=== PATIENT | female | born 1940 | race Caucasian/White ===

== ENCOUNTER 2016-11-10 20:27 | Inpatient (IN) | payer MEDICARE, BC ==
[2016-11-10] MEDS ORDERED: SODIUM CHLORIDE 0.9% 1,000 ML IV STA ×2 (21:56→23:50)
[2016-11-10 22:23] LABS: Amorphous Sediment,Urine Rare /hpf; Appearance,Urine Cloudy (Clear); Bilirubin,Urine Negative (Negative); Glucose,Urine (UA) Negative (Negative); Ketones,Urine Negative (Negative); Leukocyte Esterase,Urine Trace (Negative); Mucus,Urine Rare /hpf; Nitrite,Urine Negative (Negative); Particle Count 7152; Protein,Urine 2+ (Negative); RBC,Urine 1 /hpf (0-5); Specific Gravity,Urine 1.007 (1.001-1.035); Squamous Epithelial Cell,Urine 1 /hpf (0-4); UA Billing (MACRO vs. MICRO) MICRO; Urobilinogen,Urine <2.0 mg/dL (<2.0); WBC,Urine 5 /hpf (0-5)
[2016-11-10 22:33] LABS: Basophils % (A) 0 %; CH 31.9; CHCM 35.2; Eosinophils # (A) 0.1 k/uL (0-0.7); Eosinophils % (A) 1 %; HCT 29.5 % (34.0-46.0); HDW 3.45; HGB 9.9 gm/dL (11.4-16.0); Luc # (Auto) 0.09; Luc % (Auto) 1; Lymphocytes # (A) 0.8 k/uL (1.0-4.8); Lymphocytes % (A) 10 %; MCH 30.5 pg (25.0-35.0); MCHC 33.4 g/dL (31.0-37.0); MCV 91.3 fL (80.0-100.0); Mean Platelet Volume 8.2; Monocytes # (A) 0.3 k/uL (0-1.0); Monocytes % (A) 4 %; Neutrophils # (A) 7.2 k/uL (1.3-7.7); Neutrophils % (A) 84 %; Poikilocytosis Slight; RBC 3.23 m/uL (3.80-5.40); RDW 15.1 % (11.5-15.5); WBC 8.5 k/uL (3.8-10.6); WBC (Perox) 8.39
[2016-11-10 22:45] LABS: Calcium 9.6 mg/dL (8.4-10.2); Magnesium 1.5 mg/dL (1.6-2.3); Phosphorous 2.3 mg/dL (2.5-4.5); Total Bilirubin 0.5 mg/dL (0.2-1.3); Total Protein 5.9 g/dL (6.3-8.2)
[2016-11-10 22:48] LABS: INR 1.1 (<1.2)
[2016-11-10 22:49] LABS: Partial Thromboplastin Time 30.4 sec (22.0-30.0); Prothrombin Time 11.3 sec (9.0-12.0)
--- NOTE | 2016-11-10 23:08 | XR ---
EXAM: XR Chest, 2 Views CLINICAL HISTORY: Reason: Weakness TECHNIQUE: Frontal and lateral views of the chest. COMPARISON: 03/04/14 FINDINGS: No lobar consolidation or pulmonary edema. Low lung volumes noted which accentuate the cardiac silhouette and pulmonary markings. Tortuous aorta with atherosclerotic calcifications. Prominence of the right paratracheal stripe likely due to right oblique positioning. Osseous structures intact. IMPRESSION: No lobar consolidation or pulmonary edema. Thickening of the right paratracheal stripe likely due to oblique positioning.
[2016-11-10 23:09] LABS: Creatine Kinase MB 1.3 ng/mL (0.0-2.4); Troponin I 0.016 ng/mL (0.000-0.034)
[2016-11-10] MEDS ORDERED: SODIUM CHLORIDE 0.9% 500 ML IV STA (23:50)
--- NOTE | 2016-11-10 23:50 | ED ---
General Adult HPI - General Chief complaint: Recheck/Abnormal Lab/Rx Stated complaint: Weakness Time Seen by Provider: 11/10/16 21:28 Source: EMS, RN notes reviewed, old records reviewed Mode of arrival: EMS Limitations: no limitations - History of Present Illness Initial comments: This is a 76-year-old female to the ER for evaluation today. This patient presents for evaluation regarding weakness. Decreased appetite, decreased activity level. Patient was just discharged from hospital secondary to having stroke. Family states she's been gradually decompensating since she's been home. Patient herself admits to being emotional not feeling well and is being mildly overwhelmed. She is awake and alert. She states that she just feels weak - Related Data Home Medications Medication Instructions Recorded Confirmed Allopurinol [Zyloprim] 150 mg PO DAILY 11/10/16 11/10/16 Carvedilol [Coreg] 3.125 mg PO BID 11/10/16 11/10/16 Furosemide [Lasix] 20 mg PO DAILY 11/10/16 11/10/16 HYDROcodone/APAP 7.5-325MG [[place] 1 tab PO Q8H PRN 11/10/16 11/10/16 7.5-325] LORazepam [Ativan] 1 mg PO Q8H PRN 11/10/16 11/10/16 Levothyroxine Sodium 125 mcg PO DAILY 11/10/16 11/10/16 NIFEdipine [NIFEdipine ER] 90 mg PO DAILY 11/10/16 11/10/16 Sertraline [Zoloft] 25 mg PO DAILY 11/10/16 11/10/16 Spironolactone [Aldactone] 12.5 mg PO DAILY 11/10/16 11/10/16 cloNIDine 0.2 MG/24HR PATCH 1 patch TRANSDERM MO 11/10/16 11/10/16 [Catapres-TTS] levETIRAcetam [Keppra] 500 mg PO Q12H 11/10/16 11/10/16 Allergies Allergy/AdvReac Type Severity Reaction Status Date / Time codeine Allergy Unknown Verified 11/10/16 21:04 iodine Allergy Unknown Verified 11/10/16 21:04 latex Allergy Unknown Verified 11/10/16 21:04 Review of Systems ROS Statement: Those systems with pertinent positive or pertinent negative responses have been documented in the HPI. ROS Other: All systems not noted in ROS Statement are negative. Past Medical History Past Medical History: Heart Failure, CVA/TIA, Hypertension, Renal Disease History of Any Multi-Drug Resistant Organisms: None Reported Past Surgical History: Appendectomy, Cholecystectomy, Hysterectomy Past Psychological History: Anxiety, Bipolar, Depression Smoking Status: Former smoker Past Alcohol Use History: None Reported Past Drug Use History: None Reported General Exam Limitations: no limitations General appearance: alert, in no apparent distress Head exam: Present: atraumatic, normocephalic, normal inspection Eye exam: Present: normal appearance, PERRL, EOMI. Absent: scleral icterus, conjunctival injection, periorbital swelling ENT exam: Present: normal exam, mucous membranes moist Neck exam: Present: normal inspection. Absent: tenderness, meningismus, lymphadenopathy Respiratory exam: Present: normal lung sounds bilaterally. Absent: respiratory distress, wheezes, rales, rhonchi, stridor Cardiovascular Exam: Present: regular rate, normal rhythm, normal heart sounds. Absent: systolic murmur, diastolic murmur, rubs, gallop, clicks GI/Abdominal exam: Present: soft, normal bowel sounds. Absent: distended, tenderness, guarding, rebound, rigid Extremities exam: Present: normal inspection, full ROM, normal capillary refill. Absent: tenderness, pedal edema, joint swelling, calf tenderness Back exam: Present: normal inspection Neurological exam: Present: alert, oriented X3, CN II-XII intact Psychiatric exam: Present: normal affect, normal mood Skin exam: Present: warm, dry, intact, normal color. Absent: rash Course Vital Signs 11/10/16 11/10/16 20:31 22:51 Temperature 97.4 F L Pulse Rate 88 89 Respiratory 18 18 Rate Blood Pressure 154/80 150/74 O2 Sat by Pulse 96 96 Oximetry - Reevaluation(s) Reevaluation #1: 11/10/16 23:48 Patient with no clinical improvement at this time EKG Findings - EKG Comments: EKG Findings:: EKG shows normal sinus rhythm rate 91, RI 170, QRS 1.6, QTc 442 Medical Decision Making - Medical Decision Making Sorry for female here for evaluation. This has resolved reevaluation regarding weakness. Dehydration with acute renal failure. Patient will be admitted for rehydration and PTOT. - Lab Data Result diagrams: 11/10/16 22:23 11/10/16 22:23 Lab Results 11/10/16 11/10/16 11/10/16 Range/Units 22:12 22:23 22:23 WBC 8.5 (3.8-10.6) k/uL RBC 3.23 L (3.80-5.40) m/uL Hgb 9.9 L (11.4-16.0) gm/dL Hct 29.5 L (34.0-46.0) % MCV 91.3 (80.0-100.0) fL MCH 30.5 (25.0-35.0) pg MCHC 33.4 (31.0-37.0) g/dL RDW 15.1 (11.5-15.5) % Plt Count 217 (150-450) k/uL Neutrophils % 84 % Lymphocytes % 10 % Monocytes % 4 % Eosinophils % 1 % Basophils % 0 % Neutrophils # 7.2 (1.3-7.7) k/uL Lymphocytes # 0.8 L (1.0-4.8) k/uL Monocytes # 0.3 (0-1.0) k/uL Eosinophils # 0.1 (0-0.7) k/uL Basophils # 0.0 (0-0.2) k/uL Poikilocytosis Slight PT (9.0-12.0) sec INR (<1.2) APTT (22.0-30.0) sec Sodium (137-145) mmol/L Potassium (3.5-5.1) mmol/L Chloride (98-107) mmol/L Carbon Dioxide (22-30) mmol/L Anion Gap mmol/L BUN (7-17) mg/dL Creatinine (0.52-1.04) mg/dL Est GFR (MDRD) Af Amer (>60 ml/min/1.73 sqM) Est GFR (MDRD) Non-Af (>60 ml/min/1.73 sqM) Glucose (74-99) mg/dL Calcium (8.4-10.2) mg/dL Phosphorus (2.5-4.5) mg/dL Magnesium (1.6-2.3) mg/dL Total Bilirubin (0.2-1.3) mg/dL AST (14-36) U/L ALT (9-52) U/L Alkaline Phosphatase (38-126) U/L Total Creatine Kinase 65 (30-135) U/L CK-MB (CK-2) 1.3 (0.0-2.4) ng/mL CK-MB (CK-2) Rel Index 2.0 Troponin I 0.016 (0.000-0.034) ng/mL Total Protein (6.3-8.2) g/dL Albumin (3.5-5.0) g/dL Urine Color Light Yellow Urine Appearance Cloudy H (Clear) Urine pH 6.0 (5.0-8.0) Ur Specific [place] 1.007 (1.001-1.035) Urine Protein 2+ H (Negative) Urine Glucose (UA) Negative (Negative) Urine Ketones Negative (Negative) Urine Blood Trace H (Negative) Urine Nitrite Negative (Negative) Urine Bilirubin Negative (Negative) Urine Urobilinogen <2.0 (<2.0) mg/dL Ur Leukocyte Esterase Trace H (Negative) Urine RBC 1 (0-5) /hpf Urine WBC 5 (0-5) /hpf Ur Squamous Epith Cells 1 (0-4) /hpf Amorphous Sediment Rare H (None) /hpf Urine Mucus Rare H (None) /hpf 11/10/16 11/10/16 Range/Units 22:23 22:23 WBC (3.8-10.6) k/uL RBC (3.80-5.40) m/uL Hgb (11.4-16.0) gm/dL Hct (34.0-46.0) % MCV (80.0-100.0) fL MCH (25.0-35.0) pg MCHC (31.0-37.0) g/dL RDW (11.5-15.5) % Plt Count (150-450) k/uL Neutrophils % % Lymphocytes % % Monocytes % % Eosinophils % % Basophils % % Neutrophils # (1.3-7.7) k/uL Lymphocytes # (1.0-4.8) k/uL Monocytes # (0-1.0) k/uL Eosinophils # (0-0.7) k/uL Basophils # (0-0.2) k/uL Poikilocytosis PT 11.3 (9.0-12.0) sec INR 1.1 (<1.2) APTT 30.4 H (22.0-30.0) sec Sodium 140 (137-145) mmol/L Potassium 5.0 (3.5-5.1) mmol/L Chloride 113 H (98-107) mmol/L Carbon Dioxide 18 L (22-30) mmol/L Anion Gap 9 mmol/L BUN 22 H (7-17) mg/dL Creatinine 2.01 H (0.52-1.04) mg/dL Est GFR (MDRD) Af Amer 29 (>60 ml/min/1.73 sqM) Est GFR (MDRD) Non-Af 24 (>60 ml/min/1.73 sqM) Glucose 97 (74-99) mg/dL Calcium 9.6 (8.4-10.2) mg/dL Phosphorus 2.3 L (2.5-4.5) mg/dL Magnesium 1.5 L (1.6-2.3) mg/dL Total Bilirubin 0.5 (0.2-1.3) mg/dL AST 30 (14-36) U/L ALT 29 (9-52) U/L Alkaline Phosphatase 81 (38-126) U/L Total Creatine Kinase (30-135) U/L CK-MB (CK-2) (0.0-2.4) ng/mL CK-MB (CK-2) Rel Index Troponin I (0.000-0.034) ng/mL Total Protein 5.9 L (6.3-8.2) g/dL Albumin 3.3 L (3.5-5.0) g/dL Urine Color Urine Appearance (Clear) Urine pH (5.0-8.0) Ur Specific [place] (1.001-1.035) Urine Protein (Negative) Urine Glucose (UA) (Negative) Urine Ketones (Negative) Urine Blood (Negative) Urine Nitrite (Negative) Urine Bilirubin (Negative) Urine Urobilinogen (<2.0) mg/dL Ur Leukocyte Esterase (Negative) Urine RBC (0-5) /hpf Urine WBC (0-5) /hpf Ur Squamous Epith Cells (0-4) /hpf Amorphous Sediment (None) /hpf Urine Mucus (None) /hpf - Radiology Data Radiology results: report reviewed (Chest x-ray is negative for acute disease), image reviewed Disposition Clinical Impression: ARF (acute renal failure), Dehydration, Weakness Disposition: ADMITTED IP TO THIS HOSP Condition: Good Referrals: Ethan Michelle MD [Primary Care Provider] - 1-2 days
[2016-11-11] MEDS ORDERED: ENOXAPARIN 40 MG/0.4 ML SYRINGE SQ SCH (09:00)
[2016-11-11] MEDS ORDERED: cloNIDine 0.1 MG/24HR PATCH 1 PATCH PATCH TRANSDERM SCH (10:45)
[2016-11-11 11:37] VITALS: BMI 24.0
--- NOTE | 2016-11-11 11:44 | P.HPIM ---
History of Present Illness 9-year-old female was brought into ER as her daughter is unable to take care of her at home. Patient although denied any symptoms to me patient denied any fever, chills, nausea, vomiting, abdominal pain. Patient does have multiple endocrine abnormalities patient is taking Lasix at home not sure why. I do not have her baseline creatinine patient creatinine is elevated here I'm not sure whether patient has acute renal failure chronic kidney disease we have to update medical records from a outside hospitals where she was admitted as per the patient for multiple episodes of TIA although I did not see any focal weakness patient does have generalized weakness with strength of 4 x 5 in bilateral upper limbs and lower limbs patient was subsequently admitted to the subacute rehabilitation and patient was undergoing rehabilitation did do well after which she was discharged from rehab shortly after the rehab discharge patient apparently had a fall too. Review of Systems REVIEW OF SYSTEMS: CONSTITUTIONAL: No fever, no malaise, no fatigue. HEENT: No recent visual problems or hearing problems. Denied any sore throat. CARDIOVASCULAR: No chest pain, orthopnea, PND, no palpitations, no syncope. PULMONARY: No shortness of breath, no cough, no hemoptysis. GASTROINTESTINAL: No diarrhea, no nausea, no vomiting, no abdominal pain. Normoactive bowel sounds. NEUROLOGICAL: No headaches, no weakness, no numbness. HEMATOLOGICAL: Denies any bleeding or petechiae. GENITOURINARY: Denies any burning micturition, frequency, or urgency. MUSCULOSKELETAL/RHEUMATOLOGICAL: Denies any joint pain, swelling, or any muscle pain. ENDOCRINE: Denies any polyuria or polydipsia. The rest of the 14-point review of systems is negative. Past Medical History Past Medical History: Heart Failure, CVA/TIA, Hypertension, Renal Disease History of Any Multi-Drug Resistant Organisms: None Reported Past Surgical History: Appendectomy, Cholecystectomy, Hysterectomy Past Psychological History: Anxiety, Bipolar, Depression Smoking Status: Unknown if ever smoked Past Alcohol Use History: None Reported Past Drug Use History: None Reported Medications and Allergies Home Medications Medication Instructions Recorded Confirmed Type Allopurinol [Zyloprim] 150 mg PO DAILY 11/10/16 11/10/16 History Carvedilol [Coreg] 3.125 mg PO BID 11/10/16 11/10/16 History Furosemide [Lasix] 20 mg PO DAILY 11/10/16 11/10/16 History HYDROcodone/APAP 7.5-325MG [[place] 1 tab PO Q8H PRN 11/10/16 11/10/16 History 7.5-325] LORazepam [Ativan] 1 mg PO Q8H PRN 11/10/16 11/10/16 History Levothyroxine Sodium 125 mcg PO DAILY 11/10/16 11/10/16 History NIFEdipine [NIFEdipine ER] 90 mg PO DAILY 11/10/16 11/10/16 History Sertraline [Zoloft] 25 mg PO DAILY 11/10/16 11/10/16 History Spironolactone [Aldactone] 12.5 mg PO DAILY 11/10/16 11/10/16 History cloNIDine 0.2 MG/24HR PATCH 1 patch TRANSDERM MO 11/10/16 11/10/16 History [Catapres-TTS] levETIRAcetam [Keppra] 500 mg PO Q12H 11/10/16 11/10/16 History Allergies Allergy/AdvReac Type Severity Reaction Status Date / Time codeine Allergy Unknown Verified 11/10/16 21:04 iodine Allergy Unknown Verified 11/10/16 21:04 latex Allergy Unknown Verified 11/10/16 21:04 Physical Exam Vitals: Vital Signs Temp Pulse Pulse Resp BP BP Pulse Ox 11/11/16 07:00 98.3 F 93 18 153/77 98 11/11/16 00:34 97.6 F 11/11/16 00:30 103 H 16 158/72 99 11/10/16 22:51 89 18 150/74 96 11/10/16 20:31 97.4 F L 88 18 154/80 96 Intake and Output 11/10/16 11/11/16 11/11/16 22:59 06:59 14:59 Intake Total 1239 Balance 1239 Intake: Intake, IV Titration 999 Amount Sodium Chloride 0.9% 1, 999 000 ml @ 999 mls/hr IV . Q1H1M STA Rx#:[id number] Oral 240 Other: # Voids 2 2 Weight 63.503 kg 63.5 kg PHYSICAL EXAMINATION: GENERAL: The patient is alert and oriented x3, not in any acute distress. Well developed, well nourished. HEENT: Pupils are round and equally reacting to light. EOMI. No scleral icterus. No conjunctival pallor. Normocephalic, atraumatic. No pharyngeal erythema. No thyromegaly. CARDIOVASCULAR: S1 and S2 present. No murmurs, rubs, or gallops. PULMONARY: Chest is clear to auscultation, no wheezing or crackles. ABDOMEN: Soft, nontender, nondistended, normoactive bowel sounds. No palpable organomegaly. MUSCULOSKELETAL: No joint swelling or deformity. EXTREMITIES: No cyanosis, clubbing, or pedal edema. NEUROLOGICAL: Gross neurological examination did not reveal any focal deficits. SKIN: No rashes. Results CBC & Chem 7: 11/10/16 22:23 11/10/16 22:23 Labs: Abnormal Lab Results - Last 24 Hours (Table) 11/10/16 11/10/16 11/10/16 Range/Units 22:12 22:23 22:23 RBC 3.23 L (3.80-5.40) m/uL Hgb 9.9 L (11.4-16.0) gm/dL Hct 29.5 L (34.0-46.0) % Lymphocytes # 0.8 L (1.0-4.8) k/uL APTT (22.0-30.0) sec Chloride 113 H (98-107) mmol/L Carbon Dioxide 18 L (22-30) mmol/L BUN 22 H (7-17) mg/dL Creatinine 2.01 H (0.52-1.04) mg/dL Phosphorus 2.3 L (2.5-4.5) mg/dL Magnesium 1.5 L (1.6-2.3) mg/dL Total Protein 5.9 L (6.3-8.2) g/dL Albumin 3.3 L (3.5-5.0) g/dL Urine Appearance Cloudy H (Clear) Urine Protein 2+ H (Negative) Urine Blood Trace H (Negative) Ur Leukocyte Esterase Trace H (Negative) Amorphous Sediment Rare H (None) /hpf Urine Mucus Rare H (None) /hpf 11/10/16 Range/Units 22:23 RBC (3.80-5.40) m/uL Hgb (11.4-16.0) gm/dL Hct (34.0-46.0) % Lymphocytes # (1.0-4.8) k/uL APTT 30.4 H (22.0-30.0) sec Chloride (98-107) mmol/L Carbon Dioxide (22-30) mmol/L BUN (7-17) mg/dL Creatinine (0.52-1.04) mg/dL Phosphorus (2.5-4.5) mg/dL Magnesium (1.6-2.3) mg/dL Total Protein (6.3-8.2) g/dL Albumin (3.5-5.0) g/dL Urine Appearance (Clear) Urine Protein (Negative) Urine Blood (Negative) Ur Leukocyte Esterase (Negative) Amorphous Sediment (None) /hpf Urine Mucus (None) /hpf Assessment and Plan Plan: #1 generalized weakness: Patient is unable to take care of herself and dependent on ADLs and IADLs will get physical lipid to evaluate the patient for possibility of subacute rehabilitation on Sunday. #2 renal failure: Unsure whether patient has chronic kidney disease this is acute renal dysfunction, because of this I'll hold off on Lasix and spironolactone repeat a lipid lites tomorrow. We will obtain medical records from [facility]. #3 history of CVA in the past #4 hyperchloremia and hypomagnesemia: Hyperchloremia secondary to IV fluids and hypomagnesemia will be corrected with supplementation #5 metabolic acidosis is secondary to hyperchloremia. #6history of heart failure unknown ejection fraction: Will obtain medical records as mentioned above #7 hypertension multiple medication changes were made including cutting down on clonidine continue with calcium channel opal
[2016-11-11] MEDS: MAGNESIUM SULFATE-D5W PMX 1 GM in DEXTROSE/WATER 1 100ML.BAG IVPB SCH ×2 (13:52→17:55)
[2016-11-11] MEDS: levETIRAcetam 500 MG TAB PO SCH ×2 (13:52→23:05)
[2016-11-11] MEDS: CARVEDILOL 3.125 MG TAB PO SCH (17:59)
[2016-11-11] MEDS: HEPARIN SODIUM,PORCINE 5,000 UNIT/ML 1 ML VIAL SQ SCH (20:17)
[2016-11-12] MEDS: LEVOTHYROXINE 125 MCG TAB PO SCH (05:49)
[2016-11-12 07:33] LABS: CHCM 33.8; HCT 26.3 % (34.0-46.0); HGB 8.7 gm/dL (11.4-16.0); MCH 30.6 pg (25.0-35.0); MCHC 33.2 g/dL (31.0-37.0); MCV 92.3 fL (80.0-100.0); Mean Platelet Volume 6.7; Poikilocytosis Slight; RBC 2.85 m/uL (3.80-5.40); RDW 14.7 % (11.5-15.5); WBC 7.4 k/uL (3.8-10.6)
[2016-11-12 07:46] LABS: Calcium 9.1 mg/dL (8.4-10.2); Potassium 4.3 mmol/L (3.5-5.1)
[2016-11-12] MEDS: NIFEdipine XL 90 MG TAB.ER.24 PO SCH (08:00)
[2016-11-12] MEDS: SERTRALINE 25 MG TAB PO SCH (08:00)
[2016-11-12] MEDS: CARVEDILOL 3.125 MG TAB PO SCH (08:00)
[2016-11-12] MEDS: HEPARIN SODIUM,PORCINE 5,000 UNIT/ML 1 ML VIAL SQ SCH ×2 (08:00→19:44)
[2016-11-12] MEDS ORDERED: SPIRONOLACTONE 12.5 MG PO SCH (09:00)
[2016-11-12] MEDS ORDERED: CARVEDILOL 3.125 MG TAB PO ONE (10:45)
[2016-11-12] MEDS: levETIRAcetam 500 MG TAB PO SCH ×2 (10:49→23:18)
--- NOTE | 2016-11-12 11:07 | P.PN ---
Subjective Patient is admitted for generalized weakness need to be discharged to subacute rehabitation patient is two-person assist. Patient is also being treated for acute renal failure patient will be started on IV fluids half-normal saline at 75 mL/h with close clinical monitoring Will opt in medical records from previous hospitals. Patient denied any fever, chills, nausea, vomiting, abdominal pain, new weakness patient does have generalized weakness. Objective - Vital Signs Vital signs: Vital Signs Temp 98.6 F 11/12/16 07:00 Pulse 79 11/12/16 07:00 Resp 18 11/12/16 07:00 BP 165/82 11/12/16 07:00 Pulse Ox 96 11/12/16 07:00 Intake & Output 11/11/16 11/12/16 11/12/16 18:59 06:59 18:59 Intake Total 300 100 Balance 300 100 Weight 63.5 kg Intake: Intake, IV Titration 100 Amount Magnesium Sulfate-D5w Pmx 100 1 gm In Dextrose/Water 1 100ml.bag @ 100 mls/hr IVPB Q1H LINO Rx#: [id number] Oral 200 100 Other: # Voids 2 2 1 # Bowel Movements 1 1 - Exam GENERAL: The patient is alert and oriented x3, not in any acute distress. Well developed, well nourished. HEENT: Pupils are round and equally reacting to light. EOMI. No scleral icterus. No conjunctival pallor. Normocephalic, atraumatic. No pharyngeal erythema. No thyromegaly. CARDIOVASCULAR: S1 and S2 present. No murmurs, rubs, or gallops. PULMONARY: Chest is clear to auscultation, no wheezing or crackles. ABDOMEN: Soft, nontender, nondistended, normoactive bowel sounds. No palpable organomegaly. MUSCULOSKELETAL: No joint swelling or deformity. EXTREMITIES: No cyanosis, clubbing, or pedal edema. NEUROLOGICAL: Gross neurological examination did not reveal any focal deficits. SKIN: No rashes. - Labs CBC & Chem 7: 11/12/16 06:50 11/12/16 06:50 Labs: Abnormal Lab Results - Last 24 Hours (Table) 11/12/16 11/12/16 Range/Units 06:50 06:50 RBC 2.85 L (3.80-5.40) m/uL Hgb 8.7 L (11.4-16.0) gm/dL Hct 26.3 L (34.0-46.0) % Chloride 112 H (98-107) mmol/L Carbon Dioxide 21 L (22-30) mmol/L BUN 20 H (7-17) mg/dL Creatinine 1.98 H (0.52-1.04) mg/dL Microbiology - Last 24 Hours (Table) 11/10/16 22:12 Urine Culture - Preliminary Urine,Voided Assessment and Plan Plan: #1 generalized weakness: Patient is unable to take care of herself and dependent on ADLs and IADLs will get physical lipid to evaluate the patient for possibility of subacute rehabilitation on Sunday. #2 renal failure: Unsure whether patient has chronic kidney disease this is acute renal dysfunction, because of this I'll hold off on Lasix and spironolactone repeat a lipid lites tomorrow. We will obtain medical records from [facility]. Patient will be started on IV fluids. #3 history of CVA in the past #4 hyperchloremia and hypomagnesemia: Hyperchloremia secondary to IV fluids and hypomagnesemia will be corrected with supplementation #5 metabolic acidosis is secondary to hyperchloremia. #6history of heart failure unknown ejection fraction: Will obtain medical records as mentioned above #7 hypertension multiple medication changes were made including cutting down on clonidine continue with calcium channel opal, increasing Coreg.
[2016-11-12] MEDS: SODIUM CHLORIDE 0.45% 1,000 ML IV SCH (12:00)
[2016-11-12] MEDS: CARVEDILOL 6.25 MG TAB PO SCH (17:14)
[2016-11-13] MEDS: SODIUM CHLORIDE 0.45% 1,000 ML IV SCH ×2 (04:40→13:08)
[2016-11-13] MEDS: LEVOTHYROXINE 125 MCG TAB PO SCH (05:35)
[2016-11-13 07:24] LABS: Calcium 9.1 mg/dL (8.4-10.2); Potassium 4.3 mmol/L (3.5-5.1)
[2016-11-13] MEDS: NIFEdipine XL 90 MG TAB.ER.24 PO SCH (07:41)
[2016-11-13] MEDS: CARVEDILOL 6.25 MG TAB PO SCH ×2 (07:41→18:15)
[2016-11-13] MEDS: SERTRALINE 25 MG TAB PO SCH (07:42)
[2016-11-13] MEDS: HEPARIN SODIUM,PORCINE 5,000 UNIT/ML 1 ML VIAL SQ SCH ×2 (07:42→21:47)
[2016-11-13] MEDS: levETIRAcetam 500 MG TAB PO SCH (11:22)
[2016-11-13] MEDS: HYDROcodone/APAP 7.5-325MG 1 EACH TAB PO PRN (13:14)
[2016-11-13] MEDS: DICLOFENAC SODIUM GEL 100 GM TUBE TOPICAL SCH ×2 (15:59→21:47)
[2016-11-13] MEDS ORDERED: MELATONIN 1 MG TAB PO PRN (16:33)
--- NOTE | 2016-11-13 18:26 | P.PN ---
Progress Note - Text DATE OF SERVICE: 11/13/2016 PRESENTING COMPLAINT: Weakness HISTORY OF PRESENT ILLNESS: 76-year-old female presented with weakness and decreased appetite and decreased activity level. Was recently discharged and since discharge has gradually decompensating. Patient states she just feels weak. Admitted for rehydration and PT and OT. INTERVAL HISTORY: 11/13/2016: Patient lying in the bed appears comfortable, agreeable to work with physical therapy walked a fair distance today, up to the nurse's station and back with physical therapy. Tolerating her diet eating about 80% or more of each meal, last BM yesterday. Patient and family interested in rehab and patient was accepted to [facility] today. REVIEW OF SYSTEMS: Done for constitutional ,cardiovascular, GI, pulmonary with relevant findings as above. CURRENT MEDICATIONS Coreg 6.25 mg by mouth twice a day, Voltaren gel 4 g topical when necessary, heparin 5000 units subcu every 12 hours, Keppra 500 mg by mouth every 12 hours, Synthroid 125 g by mouth daily, melatonin 1 mg by mouth at at bedtime. Procardia 90 mg by mouth daily sertraline 25 mg by mouth daily, Zoloft 25 mg by mouth daily. PHYSICAL EXAM VITAL SIGNS: Temperature 97.7, pulse 71, respiratory rate 16, blood pressure 140/69, oxygen saturation 96% on room air. GENERAL APPEARANCE: Lying in bed, appears comfortable. EYES: Pupils equal. Conjunctiva normal. NECK: JVD not raised. Mass not palpable. RESPIRATORY: Respiratory effort normal. Lungs diminished to auscultation. CARDIOVASCULAR: First and second sounds normal. No edema. ABDOMEN: Soft. Liver and spleen not palpable. No tenderness. No mass palpable. PSYCHIATRY: Alert and oriented x3. Mood and affect normal. NEUROLOGICAL: Cranial nerves grossly intact. No facial asymmetry. Power and sensation grossly intact MUSCULOSKELETAL: Able to perform bilateral straight leg raises to about a 45 angle, right lower extremity weaker, 4/5, in the left. Right upper extremity weaker 4/5, than the left INVESTIGATIONS: Sodium 136, chloride 109, BUN 22, creatinine 1.86, Urine culture enterococcus faecium ASSESSMENT: -Chronic congestive heart failure EF not known. 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 PLAN: We'll reevaluate patient's blood pressure medications adjustments to be made accordingly. Patient was accepted at [facility], likely will transfer within the next 24 hours to continue training and strengthening. Renal function continues to improve with gentle hydration and holding spironolactone. COMMUNITY DEVELOPMENT OFFICER statement: Patient was seen and examined by nurse practitioner Nichelle Ross and all elements of the case discussed with attending Dr. De Guzman
[2016-11-13] MEDS ORDERED: LEVOFLOXACIN 500MG-D5W PMX 500 MG in DEXTROSE/WATER 1 100ML.BAG IVPB SCH (18:30)
--- NOTE | 2016-11-13 18:58 | P.PN ---
Progress Note - Text Attending note. Date of service-11/13/2016 This patient was seen and examined by me . Discussed the patient with my nurse practitioner Ms. Ross. Patient recently discharged from the hospital with a stroke had gone home. Readmitted feeling weak and not able to walk well. Seen by physical therapy. Walkabout 100 feet. Starting a diet. On examination: Chronic left-sided weakness-power 4/5 Investigations: BUN 23, creatinine 1.86. Hemoglobin 8.7 Assessment and plan: -Chronic congestive heart failure EF not known. 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 We will await final determination from PTOT to see if patient qualifies for inpatient rehab. We will review records from [facility] where the patient was present recently. Had some workup done there. Records are being requested. Care was discussed with the patient.
[2016-11-13] MEDS: SODIUM BICARBONATE TAB 650 MG TAB PO SCH (21:47)
[2016-11-14] MEDS: levETIRAcetam 500 MG TAB PO SCH ×2 (00:17→11:35)
[2016-11-14] MEDS: LEVOTHYROXINE 125 MCG TAB PO SCH (05:23)
[2016-11-14 07:45] VITALS: BP 139/95; PULSE 88; RESP 19; TEMP 98
[2016-11-14] MEDS: CARVEDILOL 6.25 MG TAB PO SCH (08:05)
[2016-11-14] MEDS: DICLOFENAC SODIUM GEL 100 GM TUBE TOPICAL SCH (08:06)
[2016-11-14] MEDS: HEPARIN SODIUM,PORCINE 5,000 UNIT/ML 1 ML VIAL SQ SCH (08:09)
[2016-11-14] MEDS: NIFEdipine XL 90 MG TAB.ER.24 PO SCH (08:10)
[2016-11-14] MEDS: SERTRALINE 25 MG TAB PO SCH (08:10)
[2016-11-14] MEDS: SODIUM BICARBONATE TAB 650 MG TAB PO SCH (08:11)
[2016-11-14] MEDS: SODIUM CHLORIDE 0.45% 1,000 ML IV SCH ×2 (10:38→14:02)
[2016-11-14] MEDS: HYDROcodone/APAP 7.5-325MG 1 EACH TAB PO PRN (11:06)
--- NOTE | 2016-11-14 14:59 | P.DS ---
<Nichelle Ross - Last Filed: 11/14/16 14:36> Providers Date of admission: 11/10/16 23:50 Expected date of discharge: 11/14/16 Attending physician: Alistair De Guzman Primary care physician: [facility] Course: FINAL DIAGNOSES: -Chronic congestive heart failure EF not known. 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 HOSPTIAL COURSE: 76-year-old female who was recently discharged home from the hospital after a stroke. Was readmitted with feelings of weakness and not able to walk. Patient admitted for further evaluation and treatment. Physical therapy and occupational therapy consulted as was social work. Physical therapy's evaluation revealed patient appropriate for subacute rehabilitation/ECF.. Patient's overall weakness did improve with therapy however continues to require standby assistance and will be appropriate for discharge to rehabilitation Center. Creatinine elevated, spironolactone held and gentle hydration provided creatinine improved. Urine culture sent was found to have Streptococcus faecium, received 2 doses of IV Levaquin, patient had no overt signs or symptoms of a UTI. Patient is ambulatory in the [place] with assistance and a rolling walker, tolerating her diet eating between 80 and 100% of her meals. Last BM, 11/11/2016. [facility] has accepted the patient for admission. PHYSICAL EXAM: CARDIOVASCULAR: First and second sounds noted no edema. RESPIRATORY: Effort normal, lung sounds diminished bilaterally NEUROLOGIC: He'll to perform bilateral straight leg raises to about a 45 angle , right lower extremity weaker 4/5, in the left, 4/5 in the right upper extremity 4/5, left upper extremity 5/5 : No burning urgency or hesitancy, urine clear yellow, no odor. PSYCHIATRY: Alert and oriented 3, mood and affect normal Patient was seen and examined by nurse practitioner Nichelle Ross in all elements of the case discussed with attending Dr. De Guzman DISPOSITION: Discharged to [facility]. Patient Condition at Discharge: Good Plan - Discharge Summary New Discharge Prescriptions: New Carvedilol [Coreg] 6.25 mg PO AC-BID #60 tab Diclofenac Sodium Gel [Voltaren Gel] 4 gm TOPICAL TID #1 tube Melatonin 1 mg PO HS PRN tab PRN Reason: sleep Continue levETIRAcetam [Keppra] 500 mg PO Q12H cloNIDine 0.2 MG/24HR PATCH [Catapres-TTS] 1 patch TRANSDERM MO Sertraline [Zoloft] 25 mg PO DAILY HYDROcodone/APAP 7.5-325MG [Corral 7.5-325] 1 tab PO Q8H PRN PRN Reason: Pain Allopurinol [Zyloprim] 150 mg PO DAILY Spironolactone [Aldactone] 12.5 mg PO DAILY NIFEdipine [NIFEdipine ER] 90 mg PO DAILY Levothyroxine Sodium 125 mcg PO DAILY Furosemide [Lasix] 20 mg PO DAILY LORazepam [Ativan] 1 mg PO Q8H PRN #20 PRN Reason: Anxiety Discontinued Carvedilol [Coreg] 3.125 mg PO BID Discharge Medication List Allopurinol [Zyloprim] 150 mg PO DAILY 11/10/16 [History] Furosemide [Lasix] 20 mg PO DAILY 11/10/16 [History] HYDROcodone/APAP 7.5-325MG [Corral 7.5-325] 1 tab PO Q8H PRN 11/10/16 [History] Levothyroxine Sodium 125 mcg PO DAILY 11/10/16 [History] NIFEdipine [NIFEdipine ER] 90 mg PO DAILY 11/10/16 [History] Sertraline [Zoloft] 25 mg PO DAILY 11/10/16 [History] Spironolactone [Aldactone] 12.5 mg PO DAILY 11/10/16 [History] cloNIDine 0.2 MG/24HR PATCH [Catapres-TTS] 1 patch TRANSDERM MO 11/10/16 [ History] levETIRAcetam [Keppra] 500 mg PO Q12H 11/10/16 [History] Carvedilol [Coreg] 6.25 mg PO AC-BID #60 tab 11/14/16 [Rx] Diclofenac Sodium Gel [Voltaren Gel] 4 gm TOPICAL TID #1 tube 11/14/16 [Rx] LORazepam [Ativan] 1 mg PO Q8H PRN #20 11/14/16 [Rx] Melatonin 1 mg PO HS PRN tab 11/14/16 [Rx] Follow up Appointment(s)/Referral(s): Tk Cason MD [STAFF PHYSICIAN] - 11/15/16 Ethan Michelle MD [Primary Care Provider] - As Needed Ambulatory/Diagnostic Orders: Basic Metabolic Panel [LAB.AMB] Location: Determined By Patient Activity/Diet/Wound Care/Special Instructions: Diet: Regular Activity: x2 assist, sit up in chair, ambulate as tolerated Discharge Disposition: HOME SELF-CARE <Alistair De Guzman - Last Filed: 11/14/16 21:15> Hospital Course: Attending note. Date of service-11/14/2016 therapy. No new issues. This patient was seen and examined by me . Discussed the patient with my nurse practitioner Ms. Ross. On examination: Lungs-clear, psych AO 3 Investigations: Assessment and plan: Acute gait dysfunction from recent stroke. Patient related to rehab center. Medications reviewed. To continue. Discharge planning more than 35 minutes.
[2016-11-14] MEDS ORDERED: LEVOFLOXACIN 250 MG TAB PO SCH (21:00)
== END 2016-11-14 15:00 | disposition home or self-care (01) | DRG 683 ==
LOC: EC 20:27 → 5MS5E 23:50
PROVIDERS: ADMIT Hospitalist; ATTEND Hospitalist
DX: N17.9 Acute kidney failure, unspecified (principal); I13.0 Hypertensive heart and chronic kidney disease with heart failure and stage 1 through stage 4 chronic kidney disease, or unspecified chronic kidney disease; E87.2 Acidosis; I50.9 Heart failure, unspecified; E87.8 Other disorders of electrolyte and fluid balance, not elsewhere classified; I69.354 Hemiplegia and hemiparesis following cerebral infarction affecting left non-dominant side; K57.30 Diverticulosis of large intestine without perforation or abscess without bleeding; E83.42 Hypomagnesemia; E03.9 Hypothyroidism, unspecified; F41.9 Anxiety disorder, unspecified; F31.9 Bipolar disorder, unspecified; E86.0 Dehydration; N18.3 Chronic kidney disease, stage 3 (moderate); N39.3 Stress incontinence (female) (male); Z79.899 Other long term (current) drug therapy; Z91.81 History of falling; M17.0 Bilateral primary osteoarthritis of knee; M19.042 Primary osteoarthritis, left hand; M19.041 Primary osteoarthritis, right hand; R26.9 Unspecified abnormalities of gait and mobility; Z88.5 Allergy status to narcotic agent; Z88.8 Allergy status to other drugs, medicaments and biological substances; Z91.040 Latex allergy status
CPT/HCPCS: 36415; 71020; 80048; 80053; 81001; 82550; 82553; 83735; 84100; 84484; 85025; 85027; 85610; 85730; 87077; 87086; 87186; 93005; 96360; 99285

== ENCOUNTER → 2017-01-09 | Outpatient (CLI) | payer MEDICARE, BC ==
[2017-01-09 16:26] LABS: CH 29.4; CHCM 32.7; HCT 32.8 % (34.0-46.0); HDW 2.92; MCH 30.2 pg (25.0-35.0); MCHC 33.4 g/dL (31.0-37.0); MCV 90.4 fL (80.0-100.0); Mean Platelet Volume 7.3; RBC 3.63 m/uL (3.80-5.40); RDW 15.1 % (11.5-15.5); WBC 15.8 k/uL (3.8-10.6)
[2017-01-09 16:28] LABS: Appearance,Urine Clear (Clear); Bilirubin,Urine Negative (Negative); Glucose,Urine (UA) Negative (Negative); Ketones,Urine Negative (Negative); Leukocyte Esterase,Urine Negative (Negative); Mucus,Urine Rare /hpf; Nitrite,Urine Negative (Negative); PH, Urine 5.5 (5.0-8.0); Particle Count 2342; Protein,Urine 2+ (Negative); RBC,Urine <1 /hpf (0-5); Specific Gravity,Urine 1.011 (1.001-1.035); Squamous Epithelial Cell,Urine 1 /hpf (0-4); UA Billing (MACRO vs. MICRO) MICRO; Urobilinogen,Urine <2.0 mg/dL (<2.0); WBC,Urine 2 /hpf (0-5)
[2017-01-09 17:16] LABS: Calcium 10.6 mg/dL (8.4-10.2); Magnesium 1.9 mg/dL (1.6-2.3); Phosphorus 4.9 mg/dL (2.5-4.5); Potassium 5.3 mmol/L (3.5-5.1); Total Bilirubin 0.5 mg/dL (0.2-1.3); Total Protein 6.9 g/dL (6.3-8.2); Uric Acid 5.3 mg/dL (3.7-7.4)
[2017-01-10 04:06] LABS: Iron Saturation 22.27 (12.00-45.00)
== END | disposition home or self-care (01) ==
LOC: LABWHC1 15:38
PROVIDERS: ATTEND Nurse Practitioner Family
DX: N18.4 Chronic kidney disease, stage 4 (severe) (principal); D64.9 Anemia, unspecified; E21.3 Hyperparathyroidism, unspecified; M10.9 Gout, unspecified
CPT/HCPCS: 36415; 80053; 81001; 82306; 82570; 82728; 83540; 83550; 83735; 83970; 84100; 84156; 84550; 85027

== ENCOUNTER → 2017-01-24 | Outpatient (CLI) | payer MEDICARE, BC ==
[2017-01-24 13:45] LABS: Potassium 4.7 mmol/L (3.5-5.1)
== END | disposition home or self-care (01) ==
LOC: LABWHC1 12:42
PROVIDERS: ATTEND Internal Medicine Nephrology
DX: N18.5 Chronic kidney disease, stage 5 (principal)
CPT/HCPCS: 36415; 80048

== ENCOUNTER → 2017-02-02 | Outpatient (CLI) | payer MEDICARE, BC | END | disposition home or self-care (01) | LOC: LABMAIN 19:45 | PROVIDERS: ATTEND Nurse Practitioner Family | DX: R19.7 Diarrhea, unspecified (principal); Z53.9 Procedure and treatment not carried out, unspecified reason ==

== ENCOUNTER 2017-02-23 03:01 | Inpatient (IN) | payer MEDICARE, BC ==
[2017-02-23] MEDS ORDERED: MORPHINE SULFATE 5 MG/ML SYRINGE IV STA (03:11)
[2017-02-23 03:26] LABS: Basophils % (A) 0 %; Eosinophils # (A) 0.1 k/uL (0-0.7); Eosinophils % (A) 1 %; HCT 32.9 % (34.0-46.0); HGB 10.5 gm/dL (11.4-16.0); Lymphocytes % (A) 7 %; MCH 28.6 pg (25.0-35.0); MCHC 31.9 g/dL (31.0-37.0); MCV 89.7 fL (80.0-100.0); Mean Platelet Volume 7.7; Monocytes # (A) 0.3 k/uL (0-1.0); Monocytes % (A) 2 %; Neutrophils # (A) 13.3 k/uL (1.3-7.7); Neutrophils % (A) 90 %; Platelet Count 353 k/uL (150-450); RBC 3.68 m/uL (3.80-5.40); RDW 15.7 % (11.5-15.5); WBC 14.8 k/uL (3.8-10.6)
[2017-02-23 03:36] LABS: Albumin 3.9 g/dL (3.5-5.0); Calcium 10.7 mg/dL (8.4-10.2); Total Bilirubin 0.6 mg/dL (0.2-1.3)
[2017-02-23] MEDS ORDERED: SODIUM CHLORIDE 0.9% 1,000 ML IV ONE (04:01)
[2017-02-23] MEDS ORDERED: PIPERACILLIN-TAZOBACTAM 3.375 GM in DEXTROSE/WATER 1 50ML.BAG IVPB STA (04:05)
[2017-02-23] MEDS ORDERED: LEVOFLOXACIN 750MG-D5W PMX 750 MG in DEXTROSE/WATER 1 150ML.BAG IVPB STA (04:06)
--- NOTE | 2017-02-23 04:10 | XR ---
ADDENDUM - Added by Bennie Castellanos MD on 02/23/2017 4:17 AM (-08:00) This CT abdomen/pelvis performed on 02/23/17 was actually performed after the KUB was performed. Please refer to that report for additional details. EXAM: XR Abdomen Complete, 2 or More Views CLINICAL HISTORY: Reason: abdominal pain TECHNIQUE: Frontal view of the abdomen/pelvis with upright view of the abdomen. COMPARISON: CT dated 02/23/17 FINDINGS: Intraperitoneal space: Large amount of intra-peritoneal free air, which was seen on the prior CT. Gastrointestinal tract: No dilated loops of bowel is exam. Bones/joints: Osseous degenerative changes. IMPRESSION: Large amount of intraperitoneal free air which was demonstrated on the CT from earlier today.
--- NOTE | 2017-02-23 04:15 | CT ---
EXAM: CT Abdomen and Pelvis Without Intravenous Contrast CLINICAL HISTORY: Reason: Pain TECHNIQUE: Axial computed tomography images of the abdomen and pelvis without intravenous contrast. DLP is 443.40 mGy-cm. This CT exam was performed using one or more of the following dose reduction techniques: automated exposure control, adjustment of the mA and/or kV according to patient size, and/or use of iterative reconstruction technique. COMPARISON: Plain film from same date. No prior report. FINDINGS: There is a large amount of free air present. The colon is underdistended limiting evaluation for wall thickening. There is diverticulosis. Possible mild stranding adjacent to sigmoid diverticula. May represent diverticulitis. Though perforated diverticulitis as etiology of free air is a possibility, the amount of intraperitoneal free air is larger than would be expected for perforated diverticulitis and additional or alternative source not excluded. Apparently patient had recent colonoscopy. Perforation related to colonoscopy may be source of free air. Cardiomegaly. Hiatal hernia. Foci of free air extending up the gastric hiatus. Suspect atelectasis. Gallbladder is not seen. Low and high density renal lesions. Nonobstructive right renal calcification. Bladder is distended. There is a small portion of the bladder which herniates out the left inguinal region. IMPRESSION: Large amount of free air compatible with bowel perforation. Possible sigmoid diverticulitis, although amount of free air is more than would be expected for perforated sigmoid diverticulitis. See above discussion. Perforation may related to recent colonoscopy. Additional incidental findings, as above. [employer] 02/23/17 04:11 Call Doctor Regarding Above results, called Dr. Manuel on 02/23 04:09 (-05:00)
--- NOTE | 2017-02-23 04:18 | ED ---
Abdominal Pain HPI - General Chief Complaint: Abdominal Pain Stated Complaint: abd pain Time Seen by Provider: 02/23/17 03:10 Source: EMS Mode of arrival: EMS Limitations: physical limitation - History of Present Illness Initial Comments: This patient is 76-year-old woman who presents tonight to be evaluated for abdominal pain. The patient indicates that the pain is diffuse, constant, severe. She has difficult time characterizing it. The pain is been present since a little after noon. It has become more severe. Patient relates that she had colonoscopy with Dr. Amos today as part of workup for abdominal pains and diarrhea. Patient not sure she has had fevers. No vomiting. No bowel movement. Patient also states she is not urinating. MD Complaint: abdominal pain -: hour(s) Location: diffuse Radiation: none Migration to: no migration Severity: severe Quality: aching, fullness Consistency: constant Improves With: nothing Worsens With: movement Associated Symptoms: denies other symptoms - Related Data Home Medications Medication Instructions Recorded Confirmed Allopurinol [Zyloprim] 150 mg PO DAILY 11/10/16 02/23/17 Furosemide [Lasix] 20 mg PO DAILY 11/10/16 02/23/17 Levothyroxine Sodium 125 mcg PO DAILY 11/10/16 02/23/17 NIFEdipine [NIFEdipine ER] 90 mg PO DAILY 11/10/16 02/23/17 Spironolactone [Aldactone] 12.5 mg PO DAILY 11/10/16 02/23/17 cloNIDine 0.2 MG/24HR PATCH 1 patch TRANSDERM MO 11/10/16 02/23/17 [Catapres-TTS] levETIRAcetam [Keppra] 500 mg PO Q12H 11/10/16 02/23/17 Sertraline HCl [Zoloft] 25 mg PO DAILY 02/23/17 02/23/17 Previous Rx's Medication Instructions Recorded Carvedilol [Coreg] 6.25 mg PO AC-BID #60 tab 11/14/16 Melatonin 1 mg PO HS PRN tab 11/14/16 Allergies Allergy/AdvReac Type Severity Reaction Status Date / Time iodine Allergy Rash/Hives Verified 02/23/17 07:45 latex Allergy Rash/Hives Verified 02/23/17 07:45 codeine AdvReac Nausea & Verified 02/23/17 07:45 Vomiting Review of Systems ROS Statement: Those systems with pertinent positive or pertinent negative responses have been documented in the HPI. ROS Other: All systems not noted in ROS Statement are negative. Constitutional: Denies: fever, chills Respiratory: Denies: cough, dyspnea, wheezes Cardiovascular: Denies: chest pain, palpitations, edema, syncope Gastrointestinal: Reports: abdominal pain. 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 LAST SEIZURE 09/2016 History of Any Multi-Drug Resistant Organisms: C-DIFF Date of last positivie culture/infection: 02/02/17 MDRO Source:: STOOL Past Surgical History: Appendectomy, Cholecystectomy, Hysterectomy Additional Past Surgical History / Comment(s): COLONOSCOPY Past Anesthesia/Blood Transfusion Reactions: No Reported Reaction Past Psychological History: Anxiety, Bipolar, Depression Smoking Status: Former smoker Past Alcohol Use History: Occasional Past Drug Use History: None Reported - Past Family History Father Family Medical History: Coronary Artery Disease (CAD), Thyroid Disorder Additional Family Medical History / Comment(s): father had quad. bypass. Grave' s disease Mother Family Medical History: Cancer, Dementia Additional Family Medical History / Comment(s): Alzheimer's, breast Cancer General Exam Limitations: physical limitation General appearance: alert, in no apparent distress Head exam: Present: atraumatic, normocephalic Eye exam: Present: normal appearance. Absent: scleral icterus, conjunctival injection ENT exam: Present: mucous membranes dry Respiratory exam: Present: normal lung sounds bilaterally. Absent: respiratory distress, wheezes, rales, rhonchi, stridor Cardiovascular Exam: Present: regular rate, normal rhythm, normal heart sounds. Absent: systolic murmur, diastolic murmur, rubs, gallop GI/Abdominal exam: Present: soft, distended, tenderness, guarding, diminished bowel sounds. Absent: rebound, rigid, mass, pulsatile mass, hernia Extremities exam: Present: normal inspection, normal capillary refill. Absent: pedal edema, calf tenderness Neurological exam: Present: alert Skin exam: Present: warm, dry, intact, normal color. Absent: rash Course Vital Signs 02/23/17 02/23/17 02/23/17 03:04 04:06 04:57 Temperature 98.3 F Pulse Rate 101 H 100 100 Respiratory 16 16 17 Rate Blood Pressure 153/79 155/76 169/93 O2 Sat by Pulse 96 97 97 Oximetry 02/23/17 05:50 Temperature 98.0 F Pulse Rate 106 H Respiratory 17 Rate Blood Pressure 172/83 O2 Sat by Pulse 96 Oximetry - Reevaluation(s) Reevaluation #1: 02/23/17 04:22 Patient is 76-year-old woman presenting for abdominal pain after having had colonoscopy. When I examined the patient there is concern for perforation, and the plain film does appear so free air. CT is ordered and went down to CT with her and the CT does verify free air. I then called Dr. Cárdenas, who is the surgeon on-call and will come to evaluate the patient. Antibiotics ordered and fluid resuscitation Medical Decision Making - Lab Data Result diagrams: 02/23/17 18:50 02/23/17 11:15 Lab Results 02/23/17 02/23/17 02/23/17 Range/Units 03:13 03:13 03:13 WBC 14.8 H (3.8-10.6) k/uL RBC 3.68 L (3.80-5.40) m/uL Hgb 10.5 L (11.4-16.0) gm/dL Hct 32.9 L (34.0-46.0) % MCV 89.7 (80.0-100.0) fL MCH 28.6 (25.0-35.0) pg MCHC 31.9 (31.0-37.0) g/dL RDW 15.7 H (11.5-15.5) % Plt Count 353 (150-450) k/uL Neutrophils % 90 % Lymphocytes % 7 % Monocytes % 2 % Eosinophils % 1 % Basophils % 0 % Neutrophils # 13.3 H (1.3-7.7) k/uL Lymphocytes # 1.0 (1.0-4.8) k/uL Monocytes # 0.3 (0-1.0) k/uL Eosinophils # 0.1 (0-0.7) k/uL Basophils # 0.0 (0-0.2) k/uL Sodium 139 (137-145) mmol/L Potassium 5.0 (3.5-5.1) mmol/L Chloride 105 (98-107) mmol/L Carbon Dioxide 17 L (22-30) mmol/L Anion Gap 17 mmol/L BUN 53 H (7-17) mg/dL Creatinine 2.50 H (0.52-1.04) mg/dL Est GFR (MDRD) Af Amer 23 (>60 ml/min/1.73 sqM) Est GFR (MDRD) Non-Af 19 (>60 ml/min/1.73 sqM) Glucose 156 H (74-99) mg/dL Plasma Lactic Acid Fernando (0.7-2.0) mmol/L Calcium 10.7 H (8.4-10.2) mg/dL Total Bilirubin 0.6 (0.2-1.3) mg/dL AST 23 (14-36) U/L ALT 29 (9-52) U/L Alkaline Phosphatase 81 (38-126) U/L Total Protein 7.0 (6.3-8.2) g/dL Albumin 3.9 (3.5-5.0) g/dL Amylase 194 H (30-110) U/L Lipase 1472 H (23-300) U/L Urine Color Urine Appearance (Clear) Urine pH (5.0-8.0) Ur Specific [place] (1.001-1.035) Urine Protein (Negative) Urine Glucose (UA) (Negative) Urine Ketones (Negative) Urine Blood (Negative) Urine Nitrite (Negative) Urine Bilirubin (Negative) Urine Urobilinogen (<2.0) mg/dL Ur Leukocyte Esterase (Negative) Urine RBC (0-5) /hpf Urine WBC (0-5) /hpf Ur Squamous Epith Cells (0-4) /hpf Urine Bacteria (None) /hpf Urine Mucus (None) /hpf Blood Type O Positive Blood Type Recheck No Antibody Screen NEGATIVE Crossmatch See Detail Spec Expiration Date 02/26/2017 - 5 02/23/17 02/23/17 Range/Units 04:25 05:26 WBC (3.8-10.6) k/uL RBC (3.80-5.40) m/uL Hgb (11.4-16.0) gm/dL Hct (34.0-46.0) % MCV (80.0-100.0) fL MCH (25.0-35.0) pg MCHC (31.0-37.0) g/dL RDW (11.5-15.5) % Plt Count (150-450) k/uL Neutrophils % % Lymphocytes % % Monocytes % % Eosinophils % % Basophils % % Neutrophils # (1.3-7.7) k/uL Lymphocytes # (1.0-4.8) k/uL Monocytes # (0-1.0) k/uL Eosinophils # (0-0.7) k/uL Basophils # (0-0.2) k/uL Sodium (137-145) mmol/L Potassium (3.5-5.1) mmol/L Chloride (98-107) mmol/L Carbon Dioxide (22-30) mmol/L Anion Gap mmol/L BUN (7-17) mg/dL Creatinine (0.52-1.04) mg/dL Est GFR (MDRD) Af Amer (>60 ml/min/1.73 sqM) Est GFR (MDRD) Non-Af (>60 ml/min/1.73 sqM) Glucose (74-99) mg/dL Plasma Lactic Acid Fernando 0.7 (0.7-2.0) mmol/L Calcium (8.4-10.2) mg/dL Total Bilirubin (0.2-1.3) mg/dL AST (14-36) U/L ALT (9-52) U/L Alkaline Phosphatase (38-126) U/L Total Protein (6.3-8.2) g/dL Albumin (3.5-5.0) g/dL Amylase (30-110) U/L Lipase (23-300) U/L Urine Color Light Yellow Urine Appearance Clear (Clear) Urine pH 5.5 (5.0-8.0) Ur Specific [place] 1.010 (1.001-1.035) Urine Protein 2+ H (Negative) Urine Glucose (UA) Negative (Negative) Urine Ketones Negative (Negative) Urine Blood Trace H (Negative) Urine Nitrite Negative (Negative) Urine Bilirubin Negative (Negative) Urine Urobilinogen <2.0 (<2.0) mg/dL Ur Leukocyte Esterase Trace H (Negative) Urine RBC 1 (0-5) /hpf Urine WBC 5 (0-5) /hpf Ur Squamous Epith Cells 3 (0-4) /hpf Urine Bacteria Rare H (None) /hpf Urine Mucus Rare H (None) /hpf Blood Type Blood Type Recheck Antibody Screen Crossmatch Spec Expiration Date Critical Care Time Critical Care Time: Yes (35 minutes) Disposition Clinical Impression: ARF (acute renal failure), Perforated abdominal viscus Disposition: ADMITTED IP TO THIS HOSP Condition: Critical
[2017-02-23] MEDS ORDERED: NALOXONE 0.4 MG/ML 1 ML VIAL IV PRN ×3 (05:33→15:06)
[2017-02-23] MEDS ORDERED: SODIUM CHLORIDE 0.9% 1,000 ML IV SCH (05:45)
[2017-02-23 05:57] LABS: Appearance,Urine Clear (Clear); Bacteria,Urine Rare /hpf; Bilirubin,Urine Negative (Negative); Blood,Urine Trace (Negative); Color,Urine Light Yellow; Glucose,Urine (UA) Negative (Negative); Ketones,Urine Negative (Negative); Leukocyte Esterase,Urine Trace (Negative); Mucus,Urine Rare /hpf; Nitrite,Urine Negative (Negative); PH, Urine 5.5 (5.0-8.0); Protein,Urine 2+ (Negative); RBC,Urine 1 /hpf (0-5); Squamous Epithelial Cell,Urine 3 /hpf (0-4); Urobilinogen,Urine <2.0 mg/dL (<2.0); WBC,Urine 5 /hpf (0-5)
--- NOTE | 2017-02-23 06:41 | P.GSHP ---
History of Present Illness H&P Date: 02/23/17 Mrs. Cho is a 76-year-old white female who presented to the emergency room with a complaint of diffuse abdominal pain. The patient had earlier undergone an EGD and colonoscopy. At the EGD the patient was noted to have some gastritis and she underwent biopsies from the stomach and the duodenum. The patient then underwent a colonoscopy and was noted at colonoscopy to have moderate sigmoid diverticuli. Of note is the fact that the adult colonoscope could not be advanced in the sigmoid colon and the scope was removed and the pediatric colonoscope was then introduced with [id number] difficulty and was gradually advanced to the descending colon. The patient in the emergency department and underwent a computed tomography scan which revealed a large amount of free air. The patient at this time complains of diffuse abdominal pain. The GI workup is being done for diarrhea. The pain is described as severe, it is diffuse, it appears to be worse with movement. Past surgical history: 1. Appendectomy 2. Cholecystectomy 3. Hysterectomy Medical history: 1. Multiple strokes 2. Congestive heart failure 3. Hypertension 4. Stage IV kidney failure uncertain as to the basis of this ALLERGIES: Codeine/nausea Iodine Latex - Constitutional Constitutional: Reports as per HPI - Cardiovascular Cardiovascular: Reports as per HPI, Reports high blood pressure - Respiratory Respiratory: Reports as per HPI - Gastrointestinal Gastrointestinal: Reports as per HPI - Genitourinary (Female) Comment: Stage IV kidney failure Genitourinary: Reports as per HPI - Genitourinary (Male) Comment: Stage IV kidney failure - Musculoskeletal Comment: Generalized weakness status post multiple CVAs - Neurological Comment: CVAs with generalized weakness, decreased memory - Psychiatric Psychiatric: Reports as per HPI - Hematologic/Lymphatic Hematologic/Lymphatic: Reports as per HPI Past Medical History Past Medical History: Heart Failure, CVA/TIA, Hypertension, Memory Impairment, Renal Disease, Seizure Disorder Additional Past Medical History / Comment(s): 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 LAST SEIZURE 09/2016 History of Any Multi-Drug Resistant Organisms: C-DIFF Date of last positivie culture/infection: 02/02/17 MDRO Source:: STOOL Past Surgical History: Appendectomy, Cholecystectomy, Hysterectomy Additional Past Surgical History / Comment(s): COLONOSCOPY Past Anesthesia/Blood Transfusion Reactions: No Reported Reaction Past Psychological History: Anxiety, Bipolar, Depression Smoking Status: Former smoker Past Alcohol Use History: Occasional Past Drug Use History: None Reported - Past Family History Father Family Medical History: Coronary Artery Disease (CAD), Thyroid Disorder Additional Family Medical History / Comment(s): father had quad. bypass. Grave' s disease Mother Family Medical History: Cancer, Dementia Additional Family Medical History / Comment(s): Alzheimer's, breast Cancer Medications and Allergies Home Medications Medication Instructions Recorded Confirmed Type Allopurinol [Zyloprim] 150 mg PO DAILY 11/10/16 02/23/17 History Furosemide [Lasix] 20 mg PO DAILY 11/10/16 02/23/17 History Levothyroxine Sodium 125 mcg PO DAILY 11/10/16 02/23/17 History NIFEdipine [NIFEdipine ER] 90 mg PO DAILY 11/10/16 02/23/17 History Spironolactone [Aldactone] 12.5 mg PO DAILY 11/10/16 02/23/17 History cloNIDine 0.2 MG/24HR PATCH 1 patch TRANSDERM MO 11/10/16 02/23/17 History [Catapres-TTS] levETIRAcetam [Keppra] 500 mg PO Q12H 11/10/16 02/23/17 History Carvedilol [Coreg] 6.25 mg PO AC-BID #60 tab 11/14/16 02/23/17 Rx Melatonin 1 mg PO HS PRN tab 11/14/16 02/23/17 Rx Sertraline HCl [Zoloft] 25 mg PO DAILY 02/23/17 02/23/17 History Allergies Allergy/AdvReac Type Severity Reaction Status Date / Time codeine Allergy Nausea & Verified 02/22/17 11:06 Vomiting iodine Allergy Rash/Hives Verified 02/22/17 11:06 latex Allergy Rash/Hives Verified 02/22/17 11:06 Surgical - Exam Vital Signs Temp Pulse Resp BP Pulse Ox 98.3 F 101 H 16 153/79 96 02/23/17 03:04 02/23/17 03:04 02/23/17 03:04 02/23/17 03:04 02/23/17 03:04 - General moderate distress - Eyes normal ocular movement - ENT normal pinna - Neck no masses, trachea midline, no venous distension - Respiratory Decreased breath sounds at bases normal expansion, clear to auscultation - Cardiovascular Rhythm: regular Heart Sounds: normal: S1, S2 - Abdomen Diffuse abdominal tenderness Abdomen: rebound, distended - Integumentary no rash - Neurologic Patient moaning, awake and alert - Psychiatric oriented to time, oriented to person, oriented to place, speech is normal Results - Labs 02/23/17 03:13 02/23/17 03:13 Abnormal Lab Results - Last 24 Hours (Table) 02/23/17 02/23/17 02/23/17 Range/Units 03:13 03:13 05:26 WBC 14.8 H (3.8-10.6) k/uL RBC 3.68 L (3.80-5.40) m/uL Hgb 10.5 L (11.4-16.0) gm/dL Hct 32.9 L (34.0-46.0) % RDW 15.7 H (11.5-15.5) % Neutrophils # 13.3 H (1.3-7.7) k/uL Carbon Dioxide 17 L (22-30) mmol/L BUN 53 H (7-17) mg/dL Creatinine 2.50 H (0.52-1.04) mg/dL Glucose 156 H (74-99) mg/dL Calcium 10.7 H (8.4-10.2) mg/dL Amylase 194 H (30-110) U/L Lipase 1472 H (23-300) U/L Urine Protein 2+ H (Negative) Urine Blood Trace H (Negative) Ur Leukocyte Esterase Trace H (Negative) Urine Bacteria Rare H (None) /hpf Urine Mucus Rare H (None) /hpf Diabetes panel 02/23/17 Range/Units 03:13 Sodium 139 (137-145) mmol/L Potassium 5.0 (3.5-5.1) mmol/L Chloride 105 (98-107) mmol/L Carbon Dioxide 17 L (22-30) mmol/L BUN 53 H (7-17) mg/dL Creatinine 2.50 H (0.52-1.04) mg/dL Glucose 156 H (74-99) mg/dL Calcium 10.7 H (8.4-10.2) mg/dL AST 23 (14-36) U/L ALT 29 (9-52) U/L Alkaline Phosphatase 81 (38-126) U/L Total Protein 7.0 (6.3-8.2) g/dL Albumin 3.9 (3.5-5.0) g/dL Calcium panel 02/23/17 Range/Units 03:13 Calcium 10.7 H (8.4-10.2) mg/dL Albumin 3.9 (3.5-5.0) g/dL Pituitary panel 02/23/17 Range/Units 03:13 Sodium 139 (137-145) mmol/L Potassium 5.0 (3.5-5.1) mmol/L Chloride 105 (98-107) mmol/L Carbon Dioxide 17 L (22-30) mmol/L BUN 53 H (7-17) mg/dL Creatinine 2.50 H (0.52-1.04) mg/dL Glucose 156 H (74-99) mg/dL Calcium 10.7 H (8.4-10.2) mg/dL Adrenal panel 02/23/17 Range/Units 03:13 Sodium 139 (137-145) mmol/L Potassium 5.0 (3.5-5.1) mmol/L Chloride 105 (98-107) mmol/L Carbon Dioxide 17 L (22-30) mmol/L BUN 53 H (7-17) mg/dL Creatinine 2.50 H (0.52-1.04) mg/dL Glucose 156 H (74-99) mg/dL Calcium 10.7 H (8.4-10.2) mg/dL Total Bilirubin 0.6 (0.2-1.3) mg/dL AST 23 (14-36) U/L ALT 29 (9-52) U/L Alkaline Phosphatase 81 (38-126) U/L Total Protein 7.0 (6.3-8.2) g/dL Albumin 3.9 (3.5-5.0) g/dL Assessment and Plan Assessment: Impression/plan: 1. Acute surgical abdomen 2. History of congestive heart failure 3. History of CVA 4. Stage IV renal failure 5. History of seizures Plan: 1. Have discussed case with internal medicine to see the patient postoperatively 2. Expiratory laparotomy patient is at high risk family understands that also understand that she may have a temporary colostomy 3. Medical management of renal failure and CHF The family and patient understand that the patient is very high risk. They wished to proceed with operative intervention. Exploratory laparotomy has been explained to the family and patient, they understand the risks and benefits including bleeeding, infection, reaction to the anesthetic. The also understand that the patient may have a colostomy. They wish to proceed.
[2017-02-23] MEDS ORDERED: HEPARIN SODIUM,PORCINE 5,000 UNIT/ML 1 ML VIAL SQ ONE (06:44)
[2017-02-23] MEDS ORDERED: ONDANSETRON 4 MG/2 ML VIAL IVP PRN (07:35)
[2017-02-23] MEDS ORDERED: IV FLUID CONTINUATION 1,000 ML IV ONE (07:41)
[2017-02-23] MEDS ORDERED: MIDAZOLAM 2 MG/2 ML VIAL ONE (08:22)
[2017-02-23] MEDS ORDERED: SUCCINYLCHOLINE CHLORIDE 100 MG/5 ML SYR IV ONE (08:22)
[2017-02-23] MEDS ORDERED: fentaNYL (PF) 50 MCG/ML 2 ML AMP ONE (08:22)
[2017-02-23] MEDS ORDERED: PHENYLEPHRINE-0.9% NACL SYG 1 MG/10 ML SYRINGE ONE (08:22)
[2017-02-23] MEDS ORDERED: HYDROmorphone (PF) 1 MG/ML ONE (08:22)
[2017-02-23] MEDS ORDERED: GLYCOPYRROLATE 0.2 MG/ML 2 ML VIAL ONE (08:22)
[2017-02-23] MEDS ORDERED: NEOSTIGMINE 1 MG/ML 10 ML VIAL ONE (08:22)
[2017-02-23] MEDS ORDERED: VECURONIUM 10 MG VIAL IV ONE (08:22)
[2017-02-23] MEDS ORDERED: PROPOFOL 10 MG/ML 20 ML VIAL IV ONE (08:22)
[2017-02-23] MEDS ORDERED: LIDOCAINE 1% INJ 10MG/ML (20 ML MDV) ONE (08:22)
[2017-02-23] MEDS ORDERED: PANTOPRAZOLE 40 MG/10 ML VIAL IV SCH (09:00)
[2017-02-23] MEDS ORDERED: LACTATED RINGERS 1,000 ML IV ONE ×2 (09:10→10:36)
[2017-02-23 11:29] LABS: Basophils % (A) 0 %; Eosinophils % (A) 0 %; HCT 22.8 % (34.0-46.0); Lymphocytes % (A) 6 %; MCH 28.8 pg (25.0-35.0); MCHC 32.2 g/dL (31.0-37.0); MCV 89.4 fL (80.0-100.0); Mean Platelet Volume 6.9; Monocytes # (A) 0.6 k/uL (0-1.0); Monocytes % (A) 4 %; Neutrophils % (A) 90 %; Platelet Count 288 k/uL (150-450); RBC 2.56 m/uL (3.80-5.40); RDW 14.7 % (11.5-15.5); WBC 15.7 k/uL (3.8-10.6)
[2017-02-23 11:44] LABS: INR 1.4 (<1.2); Prothrombin Time 13.1 sec (9.0-12.0)
[2017-02-23 11:46] LABS: Potassium 4.5 mmol/L (3.5-5.1)
[2017-02-23 11:48] LABS: HGB 7.4 gm/dL (11.4-16.0)
[2017-02-23] MEDS ORDERED: MORPHINE SULFATE 5 MG/ML SYRINGE IV PRN (12:31)
--- NOTE | 2017-02-23 12:31 | P.OP ---
Date of Procedure: 02/23/17 Preoperative Diagnosis: acute abdomen, fere air, status post colonoscopy/EGD Postoperative Diagnosis: ,serosal tear of ceacum, free air, Probable diverticular perforation Procedure(s) Performed: Exploratory laparotomy, extensive lysis of adhesions, repair serosal tear in the cecum, sigmoid resection and sigmoid colostomy Anesthesia: JOLENE Surgeon: Ellyn Cárdenas Assembler Faucets #1: Pricilla Negron Estimated Blood Loss (ml): 300 IV fluids (ml): 2,500 Urine output (ml): 800 Pathology: other (Sigmoid colon) Condition: stable Disposition: PACU Indications for Procedure: acute Abdomen, free air, status post colonoscopy EGD Operative Findings: free air, extensive adhesions, extensive diverticular disease, serosal tear cecum Description of Procedure: The patient is a 76-year-old white female status post colonoscopy and EGD after which she developed an acute abdomen with free air. Discussion with the the patient and her family was done preoperatively. The patient is very high risk and she has stage IV renal failure, congestive heart failure, and has had multiple CVAs and seizure disorder. Despite this the family wish operative intervention. Preoperatively we discussed the possibility of a sigmoid perforation which may necessitate resection and colostomy formation. Additionally they understand the risks and benefits including bleeding and infection reaction to the anesthetic and wished to proceed. They also understand the risk of mortality. Patient was taken to the operating room and following induction of general anesthesia the patient was placed in a stirups, and the abdomen and the perianal/rectal area were prepped and draped in a sterile fashion. The reason for the stirrups was the possibility of an EEA anastomosis from below if there was minimal contamination and this was sigmoid perforation. A midline abdominal incision was made and carried down to the fascia the intra- abdominal wall to the linea alba. The peritoneal cavity was entered. Upon entering the peritoneal cavity a large amount of free air was noted. No significant contamination was identified. Exploration of the abdomen revealed the stomach to be distended no evidence of any perforation of the stomach or duodenum was noted. The lesser sac was entered and the posterior wall of the stomach was evaluated as well and no evidence of any perforation was identified. There were extensive adhesions in the pelvis and the sigmoid colon and it was necessary to take these adhesions down using sharp dissection. This required approximately 40 minutes to take these adhesions down. Although there were extensive diverticuli no deffinate area of perforation was identified. The stomach was distended and an NG tube was placed and noted to be in the correct location. The bowel was run from the area of the ligament of Treitz to the sigmoid colon and no evidence of perforation in the small bowel was noted. The colon was evaluated from the cecum and the cecum had some serosal tear although no full thickness perforation was noted, evaluation of the right colon transverse colon splenic flexure and left colon down to the area of the sigmoid colon did not reveal free perforation. The distal protion of the sigmoid colon had extensive diverticuli and extensive inflammation was noted but no discrete area of perforation was noted. Secondary to the fact that we could not find another area of perforation it was felt that the perforation was most likely that of a diverticulum possibly even distal to the area of inflammation which had sealed off. After consideration it was determined to do a sigmoid colon resection with a diverting ostomy. If there was a distal sigmoid perforation this would be diverted. There was no place to place a drain into the pelvis, as there was induration but no fluid collections. The proximal sigmoid colon which was soft was divided using a stapling device and the mesocolon was divided down to the area of the pelvis. This was accomplished using the LigaSure as well as clamping and ligating any larger vessels. Dissected was carried down into the pelvis as far as we could dissect this secondary to the inflammatory disease. The bladder was carefully dissected free from the area of inflammation. The distal colon was then divided at this point using a stapling device. The abdomen was well irrigated. No evidence of bleeding was identified. Again the entire abdomen had been evaluated from ligament of Treitz to the cecum, the cecum , right colon, transverse colon, left colon, and sigmoid colon down into the pelvis to the area of the rectum. The inflammation was marked at the area of the sigmoid colon and extensive down to the area of the rectum but no free perforation was identified. The serosal tear in the cecum was oversewn using a Vicryl suture. The stomach and duodenum were likewise evaluated and no evidence of perforation was noted in the stomach or the duodenum. It was felt that the area of perforation had been from a diverticulum which had most likely sealed or was distal in the pelvis, which could not be reached secondary to dense inflamation. It was felt that a diverting ostomy would divert the stool from any area of perforation. A sigmoid resection and colostomy were done. The area for the colostomy was chosen and the opening was made on the anterior abdominal wall for the colostomy using a cruciate incision on the fascia. The colon was brought through this opening. After the abdomen had been well irrigated the anterior abdominal wall was closed using a double-stranded PDS with interrupted Prolene. The area of the ostomy was tightened using a Prolene suture. The subcutaneous tissues were well irrigated. The subcutaneous tissue of the anterior abdominal wall was closed using a 3-0 Vicryl suture. This was followed by closure with ken. A dressing was placed over this and the ostomy was matured using 3-0 Vicryl sutures. An ostomy bag was placed. A prevenna wound vac was placed. The suction would not hold, and therefore it will be placed to wall suction. All instrument and sponge counts were correct at the end of the case. The patient tolerated the procedure in guarded condition.
[2017-02-23] MEDS ORDERED: DEXTROSE 5%-0.45% NACL 1,000 ML IV SCH (12:45)
[2017-02-23] MEDS ORDERED: LABETALOL 5 MG/ML VIAL MDV IVP ONE (13:03)
[2017-02-23 13:48] LABS: Glucose,Whole Blood 105 mg/dL (75-99)
[2017-02-23] MEDS: MORPHINE SULFATE 5 MG/ML SYRINGE IV PRN ×3 (13:55→21:09)
--- NOTE | 2017-02-23 14:09 | P.CNPUL ---
History of Present Illness Consult date: 02/23/17 Reason for consult: other Chief complaint: Perforated bowel History of present illness: Consult dated 02/23/2017 76-year-old female who presented to the emergency department with complaints of abdominal pain. The patient's evaluation revealed air in the diaphragm. The patient was taken to the operating room for his flutter laparotomy. She had serosal tear that was repaired by Dr. Crys Long. In addition, the patient significant sigmoid diverticuli but no distinct perforation could be identified and hence the patient a sigmoid colectomy. The patient's back up in the ICU. The patient apparently had a colonoscopy yesterday which may have resulted in the perforation. Anyway the patient seemed be doing relatively well. On 3 L. Getting an IV of LR at 100 mL an hour. No pressors. Blood pressures are high probably because of pain. The patient had an NG tube in place. Nasal O2 in place. I was consulted for critical care management. We'll make sure that we have adequate pain control. We'll make sure that the patient's properly resuscitated with fluids and this is the patient's more awake, we'll get an incentive spirometer into the room. Past medical history is positive for heart failure CVA hypertension memory impairment renal disease seizure disorder. She also has a history of C. diff. Review of Systems ROS unobtainable: due to mental status (Patient is still quite sedated from surgery.) Past Medical History Past Medical History: Heart Failure, CVA/TIA, Hypertension, Memory Impairment, Renal Disease, Seizure Disorder Additional Past Medical History / Comment(s): 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 LAST SEIZURE 09/2016 History of Any Multi-Drug Resistant Organisms: C-DIFF Date of last positivie culture/infection: 02/02/17 MDRO Source:: STOOL Past Surgical History: Appendectomy, Cholecystectomy, Hysterectomy Additional Past Surgical History / Comment(s): COLONOSCOPY Past Anesthesia/Blood Transfusion Reactions: No Reported Reaction Past Psychological History: Anxiety, Bipolar, Depression Smoking Status: Former smoker Past Alcohol Use History: Occasional Past Drug Use History: None Reported - Past Family History Father Family Medical History: Coronary Artery Disease (CAD), Thyroid Disorder Additional Family Medical History / Comment(s): father had quad. bypass. Grave' s disease Mother Family Medical History: Cancer, Dementia Additional Family Medical History / Comment(s): Alzheimer's, breast Cancer Medications and Allergies Home Medications Medication Instructions Recorded Confirmed Type Allopurinol [Zyloprim] 150 mg PO DAILY 11/10/16 02/23/17 History Furosemide [Lasix] 20 mg PO DAILY 11/10/16 02/23/17 History Levothyroxine Sodium 125 mcg PO DAILY 11/10/16 02/23/17 History NIFEdipine [NIFEdipine ER] 90 mg PO DAILY 11/10/16 02/23/17 History Spironolactone [Aldactone] 12.5 mg PO DAILY 11/10/16 02/23/17 History cloNIDine 0.2 MG/24HR PATCH 1 patch TRANSDERM MO 11/10/16 02/23/17 History [Catapres-TTS] levETIRAcetam [Keppra] 500 mg PO Q12H 11/10/16 02/23/17 History Carvedilol [Coreg] 6.25 mg PO AC-BID #60 tab 11/14/16 02/23/17 Rx Melatonin 1 mg PO HS PRN tab 11/14/16 02/23/17 Rx Sertraline HCl [Zoloft] 25 mg PO DAILY 02/23/17 02/23/17 History Allergies Allergy/AdvReac Type Severity Reaction Status Date / Time iodine Allergy Rash/Hives Verified 02/23/17 07:45 latex Allergy Rash/Hives Verified 02/23/17 07:45 codeine AdvReac Nausea & Verified 02/23/17 07:45 Vomiting Physical Exam Osteopathic Statement: *. No significant issues noted on an osteopathic structural exam other than those noted in the History and Physical/Consult. Vitals: Vital Signs Temp Pulse Pulse Resp BP BP BP 02/23/17 13:15 69 13 168/89 154/75 02/23/17 13:00 70 14 172/83 179/78 02/23/17 12:45 76 16 129/58 181/78 02/23/17 12:33 97.9 F 74 18 123/66 02/23/17 08:09 108 H 16 179/102 02/23/17 07:34 99.2 F 102 H 16 177/97 02/23/17 05:50 98.0 F 106 H 17 172/83 02/23/17 04:57 100 17 169/93 02/23/17 04:06 100 16 155/76 02/23/17 03:04 98.3 F 101 H 16 153/79 BP Pulse Ox 02/23/17 13:15 95 02/23/17 13:00 100 02/23/17 12:45 100 02/23/17 12:33 171/75 99 02/23/17 08:09 97 02/23/17 07:34 95 02/23/17 05:50 96 02/23/17 04:57 97 02/23/17 04:06 97 02/23/17 03:04 96 Intake and Output 02/22/17 02/23/17 02/23/17 22:59 06:59 14:59 Intake Total 2300 Output Total 1100 Balance 1200 Intake: IV 2300 Output: Urine 800 Estimated Blood Loss 300 Other: Weight 60.781 kg No acute distress, very sleepy and lethargic. HEENT examination is grossly unremarkable. Mucous membranes are moist. No oral lesions. NG tube in place. Nasal O2 in place. Neck supple. Full range of motion. No adenopathy thyromegaly or neck vein distention. Cardiovascular examination reveals regular rhythm rate. S1-S2 normal. No S3 or S4. No discernible murmur noted. Lungs reveal clear breath sounds. Her sounds are equal bilaterally. No adventitious lung sounds including wheezes rhonchi or crackles. Abdomen soft. No bowel sounds are heard. Extremities are intact. No cyanosis clubbing or edema. Skin is without rash or lesion. Neurologic examination cannot be performed at this time. Results - Laboratory Findings CBC and BMP: 02/23/17 11:15 02/23/17 11:15 PT/INR, D-dimer PT 13.1 sec (9.0-12.0) H 02/23/17 11:15 INR 1.4 (<1.2) H 02/23/17 11:15 Abnormal lab findings: Abnormal Labs 02/23/17 02/23/17 02/23/17 03:13 03:13 03:13 WBC 14.8 H RBC 3.68 L Hgb 10.5 L Hct 32.9 L RDW 15.7 H Neutrophils # 13.3 H PT INR Sodium Chloride Carbon Dioxide 17 L BUN 53 H Creatinine 2.50 H Glucose 156 H POC Glucose (mg/dL) Calcium 10.7 H Amylase 194 H Lipase 1472 H Urine Protein Urine Blood Ur Leukocyte Esterase Urine Bacteria Urine Mucus Crossmatch See Detail 02/23/17 02/23/17 02/23/17 05:26 11:15 11:15 WBC 15.7 H RBC 2.56 L Hgb 7.4 L D Hct 22.8 L RDW Neutrophils # 14.0 H PT 13.1 H INR 1.4 H Sodium Chloride Carbon Dioxide BUN Creatinine Glucose POC Glucose (mg/dL) Calcium Amylase Lipase Urine Protein 2+ H Urine Blood Trace H Ur Leukocyte Esterase Trace H Urine Bacteria Rare H Urine Mucus Rare H Crossmatch 02/23/17 02/23/17 11:15 13:46 WBC RBC Hgb Hct RDW Neutrophils # PT INR Sodium 134 L Chloride 111 H Carbon Dioxide 18 L BUN Creatinine Glucose POC Glucose (mg/dL) 105 H Calcium Amylase Lipase Urine Protein Urine Blood Ur Leukocyte Esterase Urine Bacteria Urine Mucus Crossmatch - Diagnostic Findings Chest x-ray: image reviewed (Labs x-rays a medications are all reviewed.) Assessment and Plan (1) Abdominal pain Current Visit: Yes Status: Acute Code(s): R10.9 - UNSPECIFIED ABDOMINAL PAIN SNOMED Code(s): 26304574 (2) Diverticulitis of sigmoid colon Current Visit: Yes Status: Acute Code(s): K57.32 - DVTRCLI OF LG INT W/O PERFORATION OR ABSCESS W/O BLEEDING SNOMED Code(s): 111017386 (3) Perforation of sigmoid colon due to diverticulitis Current Visit: Yes Status: Acute Code(s): K57.20 - DVTRCLI OF LG INT W PERFORATION AND ABSCESS W/O BLEEDING SNOMED Code(s): 3151689308575678 (4) Heart failure Current Visit: Yes Status: Acute Code(s): I50.9 - HEART FAILURE, UNSPECIFIED SNOMED Code(s): 74908810 (5) CVA (cerebral vascular accident) Current Visit: Yes Status: Acute Code(s): I63.9 - CEREBRAL INFARCTION, UNSPECIFIED SNOMED Code(s): 001743914 (6) Hypertension Current Visit: Yes Status: Acute Code(s): I10 - ESSENTIAL (PRIMARY) HYPERTENSION SNOMED Code(s): 97979435 (7) Seizure disorder Current Visit: Yes Status: Acute Code(s): G40.909 - EPILEPSY, UNSP, NOT INTRACTABLE, WITHOUT STATUS EPILEPTICUS SNOMED Code(s): 067152700 (8) Perforated abdominal viscus Current Visit: Yes Status: Acute Code(s): NRA9727 - SNOMED Code(s): 051906655 (9) Dehydration Current Visit: No Status: Acute Code(s): E86.0 - DEHYDRATION SNOMED Code(s ): 04106011 Plan: Plan dated 02/23/2017 The patient's currently getting fluids in the form of lactated Ringer's at 100 mL an hour. Nasal O2 in place at 3 L. NG tube in place. Labs and x-rays are ordered for the morning. The patient will receive a unit of blood. No additional recommendations are made. We'll make sure that the patient has adequate pain control. In addition, we'll make sure the patient went away, uses the incentive spirometer. Time with Patient: Greater than 30
[2017-02-23] MEDS ORDERED: CLEVIDIPINE BUTYRATE 25 MG/50 ML VIAL IV ONE (14:26)
[2017-02-23] MEDS: CLEVIDIPINE BUTYRATE 25 MG in EMPTY BAG 1 BAG IV SCH (15:00)
[2017-02-23] MEDS: LACTATED RINGERS 1,000 ML IV SCH ×2 (15:27→18:29)
--- NOTE | 2017-02-23 15:36 | CDI ---
Last Revision, January 2017 Documentation Clarification Form Date: 02/23/2017 3:26:00 PM From: Elba Zafar RN, CCDS Admit Date: 02/23/2017 5:37:00 AM Patient Name: Jessa Hopson Visit Number: [id number] ATTENTION: The Clinical Documentation Specialists (CDI) and [facility] Coding Staff appreciate your assistance in clarifying documentation. Please respond to the clarification below the line at the bottom and electronically sign. The CDI & [facility] Coding staff will review the response and follow-up if needed. Please note: Queries are made part of the Legal Health Record. If you have any questions, please contact the author of this message via ITS. Dr. Ellyn Cárdenas The patients hemoglobin is noted to be declining and the patient received a blood transfusion. Please provide a diagnosis that corresponds with the condition and treatment. History/Risk Factors: S/p exploratory Lap with CRUZ, repair of serosal tear in cecum, with sigmoid resection and sigmoid colostomy, renal failure, seizure disorder Clinical indicators: Hemoglobin: 10.5/7.4 Hematocrit: 32.9/22.8 Treatment: 1 unit PRBC's transfused Labs AM Daily Ivf Bolus In order to capture the severity of condition, please clarify the type of anemia and etiology if known: Acute blood loss anemia Acute on chronic blood loss anemia Chronic blood loss anemia Iron deficiency anemia Drug induced anemia Nutritional anemia Anemia of chronic kidney disease Unable to determine Other, please specify In order to accurately reflect this patients severity of illness, please clarify if the post-operative diagnosis is: An expected post-procedural or post-surgical condition; Integral to the procedure; Inherent to the procedure; An unexpected post-procedural or post-surgical condition related to surgical care; Other, please specify Unable to determine Please continue to document in your progress notes and discharge summary in order to capture severity of illness and risk of mortality. Include clinical findings that support your diagnosis. MTDD
[2017-02-23] MEDS ORDERED: HEPARIN SODIUM,PORCINE 5,000 UNIT/ML 1 ML VIAL SQ SCH (16:00)
[2017-02-23] MEDS ORDERED: PIPERACILLIN-TAZOBACTAM 3.375 GM in DEXTROSE/WATER 1 50ML.BAG IVPB SCH (16:00)
[2017-02-23] MEDS: HEPARIN SODIUM,PORCINE 5,000 UNIT/ML 1 ML VIAL SQ SCH (16:56)
[2017-02-23] MEDS: PIPERACILLIN-TAZOBACTAM 3.375 GM in DEXTROSE/WATER 1 50ML.BAG IVPB SCH (17:01)
[2017-02-23 18:59] LABS: HCT 31.2 % (34.0-46.0); HGB 10.1 gm/dL (11.4-16.0); MCH 28.7 pg (25.0-35.0); MCHC 32.2 g/dL (31.0-37.0); MCV 89.3 fL (80.0-100.0); Mean Platelet Volume 7.7; Platelet Count 304 k/uL (150-450); RDW 15.3 % (11.5-15.5)
[2017-02-23 19:16] LABS: WBC 26.5 k/uL (3.8-10.6)
[2017-02-23 19:43] LABS: Band Neutrophils % 2 %; Neutrophils % (M) 92 %; Nucleated Red Blood Cells 0 /100 WBC (0-0); Total Cells Counted 100
[2017-02-23 19:44] LABS: Toxic Granulation Present
[2017-02-23 19:45] LABS: Toxic Vacuolation Present
[2017-02-24] MEDS: HEPARIN SODIUM,PORCINE 5,000 UNIT/ML 1 ML VIAL SQ SCH ×3 (00:15→15:54)
[2017-02-24] MEDS: fentaNYL (PF) 50 MCG/ML 2 ML AMP IV PRN ×3 (00:20→07:10)
[2017-02-24] MEDS: CLEVIDIPINE BUTYRATE 25 MG in EMPTY BAG 1 BAG IV SCH ×4 (00:21→19:20)
[2017-02-24] MEDS: LACTATED RINGERS 1,000 ML IV SCH ×3 (00:26→21:58)
[2017-02-24 04:50] LABS: Basophils % (A) 0 %; Eosinophils % (A) 0 %; HCT 29.8 % (34.0-46.0); HGB 9.4 gm/dL (11.4-16.0); Lymphocytes # (A) 0.9 k/uL (1.0-4.8); Lymphocytes % (A) 5 %; MCH 28.6 pg (25.0-35.0); MCHC 31.6 g/dL (31.0-37.0); MCV 90.5 fL (80.0-100.0); Mean Platelet Volume 7.5; Monocytes # (A) 0.7 k/uL (0-1.0); Monocytes % (A) 4 %; Neutrophils # (A) 15.7 k/uL (1.3-7.7); Neutrophils % (A) 90 %; Platelet Count 272 k/uL (150-450); RDW 15.5 % (11.5-15.5); WBC 17.4 k/uL (3.8-10.6)
[2017-02-24 05:10] LABS: Albumin 2.3 g/dL (3.5-5.0); Calcium 9.1 mg/dL (8.4-10.2); Magnesium 1.5 mg/dL (1.6-2.3); Phosphorus 4.3 mg/dL (2.5-4.5); Potassium 4.4 mmol/L (3.5-5.1); Total Bilirubin 0.6 mg/dL (0.2-1.3); Total Protein 4.5 g/dL (6.3-8.2)
[2017-02-24] MEDS: PIPERACILLIN-TAZOBACTAM 3.375 GM in DEXTROSE/WATER 1 50ML.BAG IVPB SCH ×2 (06:12→17:54)
[2017-02-24] MEDS: PANTOPRAZOLE 40 MG/10 ML VIAL IV SCH (08:15)
[2017-02-24] MEDS ORDERED: PANTOPRAZOLE 40 MG/10 ML VIAL IV SCH (09:00)
--- NOTE | 2017-02-24 09:45 | P.NPCON ---
History of Present Illness - Reason for Consult Consult date: 02/24/17 acute renal failure - Chief Complaint Acute kidney injury with chronic kidney disease - History of Present Illness This is a 76-year-old female known with chronic kidney disease was admitted with abdominal pain and found to have a perforation. She had a colonoscopy recently about 24 hrs days prior to this admission. She underwent laparotomy had extensive lysis. Underwent repair of a serosal tear in the cecum as well as sigmoid resection and sigmoid colostomy. Postop she is being very well except for significant abdominal pain requiring fentanyl. Her lipase was 1400 has come down to 400's. She is hemodynamically stable blood pressure is controlled she is making adequate amounts of urine. She is afebrile. Her lactate level is 0.7 She is awake and alert and oriented. She is cooperative. She has an NG tube and she is on nasal cannula oxygen Past history significant for chronic kidney disease, under the care of Dr. Mackey. Previous creatinines have been 1.8 on 11/13/2016 at which time she was admitted here with possible CVA. Subsequently her creatinine went up to a peak of 3.1 on 01/09/2017 and remain at that level on 01/24/2017. It is not clear what caused his acute kidney injury. Her creatinine actually improved on admission and was 2.5 as of 02/23/2017. Additionally noted that she has proteinuria approximately of 3 g. The extent of the workup for this proteinuria is unclear at this time. I'll try to obtain the office records before ordering any other tests. She is known with bipolar disorder, seizure disorder, mild dementia and is unable take care of herself at home. 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 LAST SEIZURE 09/2016 History of Any Multi-Drug Resistant Organisms: C-DIFF Date of last positivie culture/infection: 02/02/17 MDRO Source:: STOOL Past Surgical History: Appendectomy, Cholecystectomy, Hysterectomy Additional Past Surgical History / Comment(s): COLONOSCOPY Past Anesthesia/Blood Transfusion Reactions: No Reported Reaction Past Psychological History: Anxiety, Bipolar, Depression Smoking Status: Former smoker Past Alcohol Use History: Occasional Past Drug Use History: None Reported - Past Family History Father Family Medical History: Coronary Artery Disease (CAD), Thyroid Disorder Additional Family Medical History / Comment(s): father had quad. bypass. Grave' s disease Mother Family Medical History: Cancer, Dementia Additional Family Medical History / Comment(s): Alzheimer's, breast Cancer Medications and Allergies Home Medications Medication Instructions Recorded Confirmed Type Allopurinol [Zyloprim] 150 mg PO DAILY 11/10/16 02/23/17 History Furosemide [Lasix] 20 mg PO DAILY 11/10/16 02/23/17 History Levothyroxine Sodium 125 mcg PO DAILY 11/10/16 02/23/17 History NIFEdipine [NIFEdipine ER] 90 mg PO DAILY 11/10/16 02/23/17 History Spironolactone [Aldactone] 12.5 mg PO DAILY 11/10/16 02/23/17 History cloNIDine 0.2 MG/24HR PATCH 1 patch TRANSDERM MO 11/10/16 02/23/17 History [Catapres-TTS] levETIRAcetam [Keppra] 500 mg PO Q12H 11/10/16 02/23/17 History Carvedilol [Coreg] 6.25 mg PO AC-BID #60 tab 11/14/16 02/23/17 Rx Melatonin 1 mg PO HS PRN tab 11/14/16 02/23/17 Rx Sertraline HCl [Zoloft] 25 mg PO DAILY 02/23/17 02/23/17 History Allergies Allergy/AdvReac Type Severity Reaction Status Date / Time iodine Allergy Rash/Hives Verified 02/23/17 07:45 latex Allergy Rash/Hives Verified 02/23/17 07:45 codeine AdvReac Nausea & Verified 02/23/17 07:45 Vomiting Physical Exam Vitals: Vital Signs Temp Pulse Pulse Resp BP BP BP 02/24/17 09:00 79 12 123/72 02/24/17 08:30 82 18 02/24/17 08:00 98.9 F 81 14 123/72 02/24/17 07:30 81 12 02/24/17 07:00 81 15 130/73 02/24/17 06:30 82 17 02/24/17 06:00 75 15 118/69 02/24/17 05:30 73 14 02/24/17 05:00 75 12 115/66 02/24/17 04:30 84 13 02/24/17 04:00 98.8 F 81 15 128/68 02/24/17 03:30 74 14 02/24/17 03:00 75 13 125/65 02/24/17 02:30 81 13 02/24/17 02:00 70 14 124/68 02/24/17 01:30 71 13 02/24/17 01:00 68 13 105/64 02/24/17 00:30 68 11 L 02/24/17 00:00 97.8 F 74 13 109/64 02/23/17 23:30 75 14 02/23/17 23:00 69 13 126/68 02/23/17 22:30 78 15 02/23/17 22:00 68 13 127/68 02/23/17 21:30 86 11 L 02/23/17 21:15 79 13 02/23/17 21:00 70 14 02/23/17 20:45 68 14 02/23/17 20:30 98.6 F 73 14 02/23/17 20:15 85 14 02/23/17 20:00 75 10 L 02/23/17 19:45 70 12 02/23/17 19:30 69 12 02/23/17 19:00 72 14 02/23/17 18:45 90 29 H 02/23/17 18:30 107 H 32 H 02/23/17 18:15 75 15 02/23/17 18:00 75 13 02/23/17 17:45 98.3 F 70 13 145/75 02/23/17 17:30 66 17 02/23/17 17:15 68 14 02/23/17 17:00 70 13 02/23/17 16:45 68 18 02/23/17 16:30 68 13 02/23/17 16:15 69 13 02/23/17 16:00 96.3 F L 82 15 02/23/17 15:48 69 02/23/17 15:45 67 13 02/23/17 15:30 67 13 02/23/17 15:15 63 13 02/23/17 15:08 96.3 F L 67 14 146/61 02/23/17 15:00 72 23 02/23/17 14:45 70 13 02/23/17 14:38 96.1 F L 57 L 14 170/72 02/23/17 14:30 57 L 13 02/23/17 14:28 97.4 F L 65 18 176/75 02/23/17 14:15 75 12 02/23/17 14:00 97.4 F L 67 28 H 02/23/17 13:45 77 6 L 02/23/17 13:44 93 02/23/17 13:15 69 13 168/89 154/75 02/23/17 13:00 70 14 172/83 179/78 02/23/17 12:45 76 16 129/58 181/78 02/23/17 12:33 97.9 F 74 18 123/66 BP Pulse Ox 02/24/17 09:00 97 02/24/17 08:30 98 02/24/17 08:00 98 02/24/17 07:30 99 02/24/17 07:00 99 02/24/17 06:30 98 02/24/17 06:00 99 02/24/17 05:30 99 02/24/17 05:00 98 02/24/17 04:30 98 02/24/17 04:00 100 02/24/17 03:30 99 02/24/17 03:00 99 02/24/17 02:30 99 02/24/17 02:00 100 02/24/17 01:30 100 02/24/17 01:00 100 02/24/17 00:30 99 02/24/17 00:00 100 02/23/17 23:30 100 02/23/17 23:00 100 02/23/17 22:30 100 02/23/17 22:00 100 02/23/17 21:30 100 02/23/17 21:15 100 02/23/17 21:00 100 02/23/17 20:45 100 02/23/17 20:30 100 02/23/17 20:15 99 02/23/17 20:00 99 02/23/17 19:45 02/23/17 19:30 02/23/17 19:00 100 02/23/17 18:45 100 02/23/17 18:30 100 02/23/17 18:15 100 02/23/17 18:00 100 02/23/17 17:45 100 02/23/17 17:30 100 02/23/17 17:15 100 02/23/17 17:00 100 02/23/17 16:45 100 02/23/17 16:30 100 02/23/17 16:15 100 02/23/17 16:00 100 02/23/17 15:48 02/23/17 15:45 100 02/23/17 15:30 100 02/23/17 15:15 100 02/23/17 15:08 100 02/23/17 15:00 100 02/23/17 14:45 100 02/23/17 14:38 98 02/23/17 14:30 100 02/23/17 14:28 98 02/23/17 14:15 100 02/23/17 14:00 100 02/23/17 13:45 02/23/17 13:44 02/23/17 13:15 95 02/23/17 13:00 100 02/23/17 12:45 100 02/23/17 12:33 171/75 99 Intake and Output 02/23/17 02/24/17 02/24/17 22:59 06:59 14:59 Intake Total 1181.5 893.5 373.7 Output Total 768 567 245 Balance 413.5 326.5 128.7 Intake: IV 821.5 861.5 346.5 0.9NaCl for Pressure Bag 9 24 9 Lactated Ringers 1,000 ml 800 800 300 @ 100 mls/hr IV .Q10H [facility] Rx#:[id number] Piperacillin-Tazobactam 3 12.5 37.5 37.5 .375 gm In Dextrose/Water 1 50ml.bag @ 12.5 mls/hr IVPB Q12H [facility] Rx#: [id number] Intake, IV Titration 50 32 27.2 Amount Clevidipine Butyrate 25 50 32 27.2 mg In Empty Bag 1 bag @ 1 MG/HR 2 mls/hr IV .Q24H [facility] Rx#:[id number] Blood Product 310 Rc As-3 Unit 310 [id number] Output: Gastric Drainage 350 150 50 Urine 418 417 195 Other: Voiding Method Indwelling Catheter Indwelling Catheter Indwelling Catheter Weight 67.1 kg ABP, PAP, CO, CI - Last 8 Hours Arterial Blood Pressure 126/52 Arterial Blood Pressure 134/54 Arterial Blood Pressure 124/53 Arterial Blood Pressure 117/51 Arterial Blood Pressure 125/53 Arterial Blood Pressure 129/53 Arterial Blood Pressure 124/51 Arterial Blood Pressure 119/49 Arterial Blood Pressure 116/49 Arterial Blood Pressure 131/56 Arterial Blood Pressure 138/58 Arterial Blood Pressure 131/53 Arterial Blood Pressure 125/53 Arterial Blood Pressure 130/56 Arterial Blood Pressure 124/52 Arterial Blood Pressure 119/50 On exam she is awake alert oriented. Follows All of commands. She is in fair amount of pain in her abdomen. HEENT exam no JVP neck is supple no facial asymmetry pupils are equal Lungs are clear to auscultation good air entry bilaterally Heart sounds are unremarkable for any murmur rub gallop she is in normal sinus rhythm Abdomen is very tender and also interactions. She has scar of midline laparotomy as well as a colostomy. Extremity exam reveals no edema Warm to touch Neurologically awake alert oriented 3. Moves all her extremities. Her memory is poor. Results - Lab Results Most recent lab results Calcium 9.1 mg/dL (8.4-10.2) 02/24/17 04:28 Phosphorus 4.3 mg/dL (2.5-4.5) 02/24/17 04:28 Magnesium 1.5 mg/dL (1.6-2.3) L 02/24/17 04:28 02/24/17 04:28 02/24/17 04:28 Assessment and Plan Assessment: Impression. 1. Acute kidney injury secondary to prerenal from perforation, good urine output stable creatinine 2.4. 2. Chronic kidney disease with a baseline creatinine of 1.8 on 11/13/2016 when she was admitted here, subsequently creatinine went up to 3.1 dated 01/09/2017 and 01/24/2017 additionally she has proteinuria for about 3 g. 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 3. Admitted with perforation of cecum. This happened in the post-colonoscopy time. It is not clear whether this was from diverticulitis or from a seated. She is on antibiotics she is stable. 4. Mild degree of non-gap acidosis from acute kidney injury 5. Mild hyponatremia from prerenal 6. Fair amount of abdominal pain needs further monitored closely. Recommendation. Agree with Ringer's lactate at 100 mL an hour. Resume fentanyl IV but at reduced frequency from every 3 hours to 50 mg every 6 hours and maintain the morphine sulfate every 4 hours As needed. Regarding the acidosis her bicarb is standing to improve therefore I'll just watch it.Is currently improved from 18-22. Regarding the hyponatremia again expected to improve with resolution of her acute kidney injury. We'll resume the Keppra 500 mg every 12 IV. Blood pressure he is being maintained with ca channel Sydnie Cleviprex. Monitor labs daily.
[2017-02-24] MEDS: levETIRAcetam IV 500 MG in SODIUM CHLORIDE 0.9% 100 ML IVPB SCH ×2 (10:08→21:59)
[2017-02-24] MEDS: MAGNESIUM SULFATE-D5W PMX 1 GM in DEXTROSE/WATER 1 100ML.BAG IVPB SCH ×2 (10:23→11:22)
[2017-02-24] MEDS: MORPHINE SULFATE 5 MG/ML SYRINGE IV PRN ×2 (10:23→19:10)
--- NOTE | 2017-02-24 11:26 | P.PN ---
Subjective Progress Note Date: 02/24/17 Principal diagnosis: Perforated bowel status post exploratory laparotomy, extensive lysis of adhesions, repair of serosal tear in the cecum, sigmoid resection and sigmoid colostomy. 76-year-old female who presented to the emergency department with complaints of abdominal pain. The patient's evaluation revealed air in the diaphragm. The patient was taken to the operating room for his flutter laparotomy. She had serosal tear that was repaired by Dr. Crys Long. In addition, the patient significant sigmoid diverticuli but no distinct perforation could be identified and hence the patient a sigmoid colectomy. The patient's back up in the ICU. The patient apparently had a colonoscopy yesterday which may have resulted in the perforation. Anyway the patient seemed be doing relatively well. On 3 L. Getting an IV of LR at 100 mL an hour. No pressors. Blood pressures are high probably because of pain. The patient had an NG tube in place. Nasal O2 in place. I was consulted for critical care management. We'll make sure that we have adequate pain control. We'll make sure that the patient's properly resuscitated with fluids and this is the patient's more awake, we'll get an incentive spirometer into the room. Past medical history is positive for heart failure CVA hypertension memory impairment renal disease seizure disorder. She also has a history of C. diff. The patient is seen again today 02/24/2017 in follow-up in the intensive care unit. She is currently awake and alert in no acute distress. This is postoperative day #1 of an exploratory laparotomy with extensive lysis of adhesions, repair of serosal tear in the cecum, sigmoid resection and sigmoid colostomy. She does have a wound VAC in place. She is having some issues with pain control. Otherwise quite stable. She is on 2 L/m per nasal cannula to maintain O2 saturations in the 90s. A nasogastric tube remains in place. She is on clevidipine at 3 mg per hour for her hypertension. She is also on a Catapres patch at 0.2 mg She has LR at 100 mL's per hour. White count 17.4. Hemoglobin 9.4. Creatinine 2.40. She remains on IV Zosyn. Objective - Vital Signs Vital signs: Vital Signs Temp 98.9 F 02/24/17 08:00 Pulse 101 H 02/24/17 11:00 Resp 14 02/24/17 11:00 BP 143/79 02/24/17 11:00 Pulse Ox 97 02/24/17 11:00 Intake & Output 02/23/17 02/24/17 02/24/17 18:59 06:59 18:59 Intake Total 3110 1265.0 589.2 Output Total 1628 807 320 Balance 1482 458.0 269.2 Weight 67.1 kg Intake: IV 2800 1183.0 462.0 0.9NaCl for Pressure Bag 33 12 Lactated Ringers 1,000 ml 500 1100 400 @ 100 mls/hr IV .Q10H [facility] Rx#:[id number] Piperacillin-Tazobactam 3 50.0 50.0 .375 gm In Dextrose/Water 1 50ml.bag @ 12.5 mls/hr IVPB Q12H [facility] Rx#: [id number] Intake, IV Titration 82 127.2 Amount Clevidipine Butyrate 25 82 27.2 mg In Empty Bag 1 bag @ 1 MG/HR 2 mls/hr IV .Q24H [facility] Rx#:[id number] levETIRAcetam IV 500 mg 100 In Sodium Chloride 0.9% 100 ml @ 400 mls/hr IVPB Q12HR [facility] Rx#:[id number] Blood Product 310 Rc As-3 Unit 310 [id number] Output: Gastric Drainage 250 250 50 Urine 1078 557 270 Estimated Blood Loss 300 Other: Voiding Method Indwelling Catheter Indwelling Catheter Indwelling Catheter ABP, PAP, CO, CI - Last Documented Arterial Blood Pressure 147/63 - Exam No acute distress, HEENT examination is grossly unremarkable. Mucous membranes are moist. No oral lesions. NG tube in place. Nasal O2 in place. Neck supple. Full range of motion. No adenopathy thyromegaly or neck vein distention. Cardiovascular examination reveals regular rhythm rate. S1-S2 normal. No S3 or S4. No discernible murmur noted. Lungs reveal clear breath sounds. Her sounds are equal bilaterally. No adventitious lung sounds including wheezes rhonchi or crackles. Abdomen soft. No bowel sounds are heard. Extremities are intact. No cyanosis clubbing or edema. Skin is without rash or lesion. Neurologic examination without any focal deficits.. - Labs CBC & Chem 7: 02/24/17 04:28 02/24/17 04:28 Labs: Abnormal Lab Results - Last 24 Hours (Table) 02/23/17 02/23/17 02/23/17 Range/Units 03:13 11:15 11:15 WBC 15.7 H (3.8-10.6) k/uL RBC 2.56 L (3.80-5.40) m/uL Hgb 7.4 L D (11.4-16.0) gm/dL Hct 22.8 L (34.0-46.0) % Neutrophils # 14.0 H (1.3-7.7) k/uL Neutrophils # (Manual) (1.3-7.7) k/uL Lymphocytes # (1.0-4.8) k/uL Lymphocytes # (Manual) (1.0-4.8) k/uL PT 13.1 H (9.0-12.0) sec INR 1.4 H (<1.2) Sodium (137-145) mmol/L Chloride (98-107) mmol/L Carbon Dioxide (22-30) mmol/L BUN (7-17) mg/dL Creatinine (0.52-1.04) mg/dL POC Glucose (mg/dL) (75-99) mg/dL Magnesium (1.6-2.3) mg/dL Total Protein (6.3-8.2) g/dL Albumin (3.5-5.0) g/dL Lipase (23-300) U/L Crossmatch See Detail 02/23/17 02/23/17 02/23/17 Range/Units 11:15 13:46 18:50 WBC 26.5 H* (3.8-10.6) k/uL RBC 3.50 L (3.80-5.40) m/uL Hgb 10.1 L (11.4-16.0) gm/dL Hct 31.2 L (34.0-46.0) % Neutrophils # (1.3-7.7) k/uL Neutrophils # (Manual) 24.90 H (1.3-7.7) k/uL Lymphocytes # (1.0-4.8) k/uL Lymphocytes # (Manual) 0.80 L (1.0-4.8) k/uL PT (9.0-12.0) sec INR (<1.2) Sodium 134 L (137-145) mmol/L Chloride 111 H (98-107) mmol/L Carbon Dioxide 18 L (22-30) mmol/L BUN (7-17) mg/dL Creatinine (0.52-1.04) mg/dL POC Glucose (mg/dL) 105 H (75-99) mg/dL Magnesium (1.6-2.3) mg/dL Total Protein (6.3-8.2) g/dL Albumin (3.5-5.0) g/dL Lipase (23-300) U/L Crossmatch 02/24/17 02/24/17 Range/Units 04:28 04:28 WBC 17.4 H (3.8-10.6) k/uL RBC 3.30 L (3.80-5.40) m/uL Hgb 9.4 L (11.4-16.0) gm/dL Hct 29.8 L (34.0-46.0) % Neutrophils # 15.7 H (1.3-7.7) k/uL Neutrophils # (Manual) (1.3-7.7) k/uL Lymphocytes # 0.9 L (1.0-4.8) k/uL Lymphocytes # (Manual) (1.0-4.8) k/uL PT (9.0-12.0) sec INR (<1.2) Sodium (137-145) mmol/L Chloride 109 H (98-107) mmol/L Carbon Dioxide (22-30) mmol/L BUN 43 H (7-17) mg/dL Creatinine 2.40 H (0.52-1.04) mg/dL POC Glucose (mg/dL) (75-99) mg/dL Magnesium 1.5 L (1.6-2.3) mg/dL Total Protein 4.5 L (6.3-8.2) g/dL Albumin 2.3 L (3.5-5.0) g/dL Lipase 489 H (23-300) U/L Crossmatch Assessment and Plan Assessment: Impression: 1 Abdominal pain found to have perforated bowel status post colonoscopy. Status post exploratory laparotomy, extensive lysis of adhesions, repair of serosal tear in the cecum, sigmoid resection and sigmoid colostomy. Postoperative day #1. #2 Acute renal failure current creatinine 2.40. #3 Ischemic CVA with memory impairment. #4 History of seizures. #5 Hypertension currently on Ozzy atropine. #6 History of congestive heart failure. #7 History of bipolar disorder. #8 Remote tobacco dependence. Plan: The patient was seen and evaluated by Dr. Wyatt. She is stable from the pulmonary critical care standpoint. Her hypertension still remains an issue. She is on the clinical proximal at 3 mg per hour. Catapres patches in place. Pain management. Nephrology is on the case regarding the renal failure. We'll continue to monitor her here closely in the intensive care unit another 24 hours. She is again encouraged regarding the increased use the incentive spirometer and cough and deep breathing exercises. Chest x-ray in the a.m. We' ll make further recommendations based on her clinical status. I, the cosigning physician, have performed a history and physical examination on the patient. Lung sounds are clear. Maintaining good O2 saturations in the 90s on 2 L/m per nasal cannula I have discussed the assessment and plan of care with my nurse practitioner, Zulema Garcia. I attest the above documented note as dictated by her. Time with Patient: Greater than 30
[2017-02-24] MEDS ORDERED: cloNIDine 0.2 MG/24HR PATCH 1 PATCH PATCH TRANSDERM SCH (12:00)
--- NOTE | 2017-02-24 12:23 | P.PN ---
Subjective Progress Note Date: 02/24/17 Patient is postop day #1 status post exploratory laparotomy sigmoid colon resection oversewing of serosal tear cecum. She had presented to the emergency room with an acute abdomen and free air. The patient at this time is awake and alert. She states she is feeling better. She postoperatively was noted to have an elevated lipase to 1472 which is decreased to 489 this morning. The patient's hemoglobin is 9.4, white blood cell count is 17.4. Objective - Vital Signs Vital signs: Vital Signs Temp 97.9 F 02/24/17 12:00 Pulse 83 02/24/17 12:00 Resp 15 02/24/17 12:00 BP 140/72 02/24/17 12:00 Pulse Ox 97 02/24/17 12:00 Intake & Output 02/23/17 02/24/17 02/24/17 18:59 06:59 18:59 Intake Total 3110 1265.0 1016.9 Output Total 1628 807 520 Balance 1482 458.0 496.9 Weight 67.1 kg 67.1 kg Intake: IV 2800 1183.0 668.0 0.9NaCl for Pressure Bag 33 18 Lactated Ringers 1,000 ml 500 1100 600 @ 100 mls/hr IV .Q10H [facility] Rx#:[id number] Piperacillin-Tazobactam 3 50.0 50.0 .375 gm In Dextrose/Water 1 50ml.bag @ 12.5 mls/hr IVPB Q12H [facility] Rx#: [id number] Intake, IV Titration 82 348.9 Amount Clevidipine Butyrate 25 82 48.9 mg In Empty Bag 1 bag @ 1 MG/HR 2 mls/hr IV .Q24H [facility] Rx#:[id number] Magnesium Sulfate-D5w Pmx 200 1 gm In Dextrose/Water 1 100ml.bag @ 100 mls/hr IVPB Q1H LINO Rx#: [id number] levETIRAcetam IV 500 mg 100 In Sodium Chloride 0.9% 100 ml @ 400 mls/hr IVPB Q12HR [facility] Rx#:[id number] Blood Product 310 Rc As-3 Unit 310 [id number] Output: Gastric Drainage 250 250 100 Urine 1078 557 420 Estimated Blood Loss 300 Other: Voiding Method Indwelling Catheter Indwelling Catheter Indwelling Catheter ABP, PAP, CO, CI - Last Documented Arterial Blood Pressure 128/54 - Constitutional General appearance: Present: average body habitus - Respiratory Details: Decreased breath sounds at the bases - Cardiovascular Rhythm: regular Heart sounds: normal: S1, S2 - Gastrointestinal Gastrointestinal Comment(s): Dressing clean and dry Hypoactive bowel sounds Ostomy pink General gastrointestinal: Present: decreased bowel sounds - Psychiatric Psychiatric: Present: A&O x's 3, appropriate affect, intact judgment & insight - Labs CBC & Chem 7: 02/24/17 04:28 02/24/17 04:28 Labs: Abnormal Lab Results - Last 24 Hours (Table) 02/23/17 02/23/17 02/23/17 Range/Units 03:13 13:46 18:50 WBC 26.5 H* (3.8-10.6) k/uL RBC 3.50 L (3.80-5.40) m/uL Hgb 10.1 L (11.4-16.0) gm/dL Hct 31.2 L (34.0-46.0) % Neutrophils # (1.3-7.7) k/uL Neutrophils # (Manual) 24.90 H (1.3-7.7) k/uL Lymphocytes # (1.0-4.8) k/uL Lymphocytes # (Manual) 0.80 L (1.0-4.8) k/uL Chloride (98-107) mmol/L BUN (7-17) mg/dL Creatinine (0.52-1.04) mg/dL POC Glucose (mg/dL) 105 H (75-99) mg/dL Magnesium (1.6-2.3) mg/dL Total Protein (6.3-8.2) g/dL Albumin (3.5-5.0) g/dL Lipase (23-300) U/L Crossmatch See Detail 02/24/17 02/24/17 Range/Units 04:28 04:28 WBC 17.4 H (3.8-10.6) k/uL RBC 3.30 L (3.80-5.40) m/uL Hgb 9.4 L (11.4-16.0) gm/dL Hct 29.8 L (34.0-46.0) % Neutrophils # 15.7 H (1.3-7.7) k/uL Neutrophils # (Manual) (1.3-7.7) k/uL Lymphocytes # 0.9 L (1.0-4.8) k/uL Lymphocytes # (Manual) (1.0-4.8) k/uL Chloride 109 H (98-107) mmol/L BUN 43 H (7-17) mg/dL Creatinine 2.40 H (0.52-1.04) mg/dL POC Glucose (mg/dL) (75-99) mg/dL Magnesium 1.5 L (1.6-2.3) mg/dL Total Protein 4.5 L (6.3-8.2) g/dL Albumin 2.3 L (3.5-5.0) g/dL Lipase 489 H (23-300) U/L Crossmatch Assessment and Plan Assessment: Impression/plan: 1. Postop day #1 expiratory laparotomy for acute abdomen free air 2. Await return of bowel function 3. Urine output adequate patient's stage IV renal disease 4. Hypertension being managed by medicine 5. History of seizure disorder Plan: 1. Await return of bowel function 2. 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 Leukocytosis repeat CBC in a.m., on antibiotics 4. Pain control as per nephrology secondary to decreased renal function
--- NOTE | 2017-02-24 12:40 | HP ---
HISTORY AND PHYSICAL CHIEF COMPLAINT: Diffuse abdominal pain. HISTORY OF PRESENT ILLNESS: This is a 76-year-old female patient who presented to the ED with a complaint of diffuse abdominal pain. The patient had undergone EGD and colonoscopy earlier in the day. In ED patient was noted to have some gastritis and some biopsies were done from stomach and duodenal. This was followed by colonoscopy showing sigmoid diverticulosis. During colonoscopy, the adult scope could not be passed beyond sigmoid colon and this was replaced by the pediatric scope and it was introduced with [id number] difficulty to the descending colon. When the patient presented to the ED CT of the abdomen was done which showed large amount of free air. The patient had been complaining of diffuse abdominal pain. She was taken to the OR. PAST MEDICAL HISTORY: Significant for history of multiple CVAs with memory impairment, history of coronary artery disease, CHF, hypertension, history of chronic kidney disease, seizure disorder, anxiety, depression, bipolar disorder. PAST SURGICAL HISTORY: Significant for appendectomy, cholecystectomy, hysterectomy, colonoscopy. SOCIAL HISTORY: Patient has a long-standing history of smoking, but quit long time ago. FAMILY HISTORY: Significant for coronary artery disease and thyroid disease in her father. Mother had Alzheimer's dementia, and breast cancer. ALLERGIES: She is ALLERGIC TO IODINE, LATEX, AND CODEINE. MEDICATIONS: The patient is on Coreg 6.25 mg p.o. b.i.d., melatonin 1 mg p.o. q.h.s. p.r.n., Zyloprim 150 mg p.o. daily, Lasix 20 mg p.o. daily, levothyroxine 125 mcg p.o. daily, Nifedipine 90 mg p.o. daily, Aldactone 12.5 mg p.o. daily, clonidine patch 0.2 mg per 24 hours, Keppra 500 mg q.12 hours and Zoloft 25 mg p.o. daily. REVIEW OF SYSTEMS: CONSTITUTIONAL: Patient denies fever and chills. RESPIRATORY: No cough, chest congestion. No wheezes, shortness of breath. CARDIOVASCULAR: No chest pain or palpitations. GASTROINTESTINAL: Diffuse abdominal pain as described above, but there is some nausea, vomiting, diarrhea. GENITOURINARY: No dysuria or hematuria. MUSCULOSKELETAL: Patient denies any back pain or any joint swelling. SKIN: No pigmentation or rash. NEUROLOGICAL: Denies any headaches, lightheadedness, dizziness. LYMPHATIC: Denies any lymph node enlargement. ENDOCRINE: No polydipsia or polyuria. Positive nausea. HEME/ONCOLOGY: Denies any unexplained weight loss. No anemia. PHYSICAL EXAMINATION: VITAL SIGNS: Temperature of 98.3, pulse 101, respirations 16, blood pressure 153/79. The patient is currently lethargic. HEENT: Atraumatic, normocephalic. Pupils equal and reactive to light. Extraocular movements intact. Buccal mucosa is fair. NECK: Supple. No lymphadenopathy. Patient has an NG tube in place. NECK: Supple. No goiter or lymphadenopathy. JVD is negative. No carotid bruit heard. Lungs are clear to auscultate. No rales, rhonchi, or wheezes. Heart is regular rate and rhythm without any murmurs, gallop rhythm. ABDOMEN: Soft, nondistended, mild diffuse tenderness. Bowel sounds are hypoactive. EXTREMITIES: No edema, clubbing, cyanosis. Skin is without rashes or pigmentation. NEUROLOGICAL EXAMINATION: The patient is lethargic, does not follow any commands. Neurological examination could not be done. MUSCULOSKELETAL: Patient does move all extremities. No gross swelling or redness of the area of the joints. LAB: CBC: White blood count of 13.7, hemoglobin 7.4, hematocrit 22.7, platelet count of 388. Chemical profile: Sodium 138, potassium 4.5, chloride 111, bicarb 118. ASSESSMENT: 1. Perforation of sigmoid colon due to diverticulitis. 2. Acute diverticulitis. 3. Severe postop anemia. 4. History of coronary artery disease and congestive heart failure. 5. Multiple cerebrovascular accidents. 6. Hypertension. 7. Seizure disorder. 8. Dehydration. 9. Acute renal failure. The patient's creatinine is 2.0. 10.Patient currently is in ICU. She was found to have perforated bowel post colonoscopy. Patient underwent an exploratory laparotomy with extensive lysis of adhesions and repair of serosal tear in cecum, sigmoid resection and sigmoid colostomy. PLAN: The plan is to continue IV fluids. Monitor electrolytes, renal function. Monitor I and Os. The patient's blood pressure remains elevated. She has all her home medications in place. Nephrology is following for her renal failure. She is being followed in the intensive care unit. Further recommendations by the food and beverage checker. MMODL / IJN: [id number] /
[2017-02-24] MEDS: fentaNYL (PF) 50 MCG/ML 2 ML AMP IVP PRN (15:53)
[2017-02-25] MEDS: CLEVIDIPINE BUTYRATE 25 MG in EMPTY BAG 1 BAG IV SCH ×4 (00:50→21:12)
[2017-02-25] MEDS: HEPARIN SODIUM,PORCINE 5,000 UNIT/ML 1 ML VIAL SQ SCH ×3 (00:53→16:53)
[2017-02-25] MEDS: fentaNYL (PF) 50 MCG/ML 2 ML AMP IVP PRN ×3 (01:33→21:06)
[2017-02-25] MEDS: MORPHINE SULFATE 5 MG/ML SYRINGE IV PRN ×3 (04:02→15:44)
[2017-02-25 04:27] LABS: Basophils % (A) 0 %; Eosinophils # (A) 0.1 k/uL (0-0.7); Eosinophils % (A) 1 %; HCT 27.1 % (34.0-46.0); HGB 8.6 gm/dL (11.4-16.0); Lymphocytes # (A) 0.9 k/uL (1.0-4.8); Lymphocytes % (A) 6 %; MCH 29.1 pg (25.0-35.0); MCHC 31.7 g/dL (31.0-37.0); MCV 91.8 fL (80.0-100.0); Mean Platelet Volume 7.6; Monocytes # (A) 0.8 k/uL (0-1.0); Monocytes % (A) 5 %; Neutrophils # (A) 12.9 k/uL (1.3-7.7); Neutrophils % (A) 88 %; Platelet Count 238 k/uL (150-450); RBC 2.95 m/uL (3.80-5.40); RDW 14.4 % (11.5-15.5); WBC 14.7 k/uL (3.8-10.6)
[2017-02-25 04:35] LABS: Calcium 8.8 mg/dL (8.4-10.2); Magnesium 2.1 mg/dL (1.6-2.3); Phosphorus 3.1 mg/dL (2.5-4.5); Potassium 3.9 mmol/L (3.5-5.1)
[2017-02-25] MEDS: PIPERACILLIN-TAZOBACTAM 3.375 GM in DEXTROSE/WATER 1 50ML.BAG IVPB SCH ×2 (05:52→17:09)
--- NOTE | 2017-02-25 07:18 | XR ---
EXAMINATION TYPE: XR chest 1V portable DATE OF EXAM: 02/25/2017 COMPARISON: 11/10/2016 HISTORY: Chest pain TECHNIQUE: Single frontal view of the chest is obtained. FINDINGS: Thoracic aorta is atheromatous. There is nasogastric tube. There is no gross heart failure . There is linear density in the left lower lobe. IMPRESSION: There is new atelectasis in the left midlung compared to old exam. No heart failure. Ath eromatous aorta.
[2017-02-25] MEDS: LACTATED RINGERS 1,000 ML IV SCH ×2 (07:32→21:13)
--- NOTE | 2017-02-25 08:45 | P.PN ---
Subjective Progress Note Date: 02/25/17 Principal diagnosis: This is a 76-year-old with chronic kidney disease, admitted with abdominal pain after colonoscopy and had exploratory lap and was found to have a serosal tear in the cecum and underwent sigmoid resection and colostomy. Additionally she had extensive lysis of adhesions. Arrogant she continues to have fair amount of pain requiring fentanyl. This is somewhat atypical for pain to last this long but she is very stable otherwise. Creatinine is improving she is making adequate amounts of urine on IV fluids currently. She is afebrile. Alert and oriented. She has an NG tube and is on oxygen via nasal cannula. Past history significant for chronic kidney disease, under the care of Dr. Mackey. Previous creatinines have been 1.8 on 11/13/2016 at which time she was admitted here with possible CVA. Subsequently her creatinine went up to a peak of 3.1 on 01/09/2017 and remain at that level on 01/24/2017. It is not clear what caused his acute kidney injury. Her creatinine actually improved on admission and was 2.5 as of 02/23/2017. Additionally noted that she has proteinuria approximately of 3 g. The extent of the workup for this proteinuria is unclear at this time. I'll try to obtain the office records before ordering any other tests. She is known with bipolar disorder, seizure disorder, mild dementia and is unable take care of herself at home. Objective - Vital Signs Vital signs: Vital Signs Temp 97.8 F 02/25/17 08:00 Pulse 79 02/25/17 08:00 Resp 12 02/25/17 08:00 BP 139/73 02/25/17 08:00 Pulse Ox 99 02/25/17 08:00 Intake & Output 02/24/17 02/25/17 02/25/17 18:59 06:59 18:59 Intake Total 1674.2 1476.7 231.0 Output Total 945 1115 80 Balance 729.2 361.7 151.0 Weight 67.1 kg 65.2 kg Intake: IV 1286.0 1373.5 231.0 0.9NaCl for Pressure Bag 36 36 6 Lactated Ringers 1,000 ml 1200 1200 200 @ 100 mls/hr IV .Q10H [facility] Rx#:[id number] Piperacillin-Tazobactam 3 50.0 37.5 25.0 .375 gm In Dextrose/Water 1 50ml.bag @ 12.5 mls/hr IVPB Q12H [facility] Rx#: [id number] levETIRAcetam IV 500 mg 100 In Sodium Chloride 0.9% 100 ml @ 400 mls/hr IVPB Q12HR [facility] Rx#:[id number] Intake, IV Titration 388.2 103.2 Amount Clevidipine Butyrate 25 88.2 103.2 mg In Empty Bag 1 bag @ 1 MG/HR 2 mls/hr IV .Q24H [facility] Rx#:[id number] Magnesium Sulfate-D5w Pmx 200 1 gm In Dextrose/Water 1 100ml.bag @ 100 mls/hr IVPB Q1H [facility] Rx#: [id number] levETIRAcetam IV 500 mg 100 In Sodium Chloride 0.9% 100 ml @ 400 mls/hr IVPB Q12HR [facility] Rx#:[id number] Output: Gastric Drainage 100 Urine 845 1115 80 Other: Voiding Method Indwelling Catheter Indwelling Catheter ABP, PAP, CO, CI - Last Documented Arterial Blood Pressure 138/52 On exam she is awake alert oriented. Follows All of commands. She is in fair amount of pain in her abdomen. HEENT exam no JVP neck is supple no facial asymmetry pupils are equal Lungs are clear to auscultation good air entry bilaterally Heart sounds are unremarkable for any murmur rub gallop she is in normal sinus rhythm Abdomen is very tender and also interactions. She has scar of midline laparotomy as well as a colostomy. Extremity exam reveals no edema Warm to touch Neurologically awake alert oriented 3. Moves all her extremities. Her memory is poor. - Labs CBC & Chem 7: 02/25/17 04:10 02/25/17 04:10 Labs: Abnormal Lab Results - Last 24 Hours (Table) 02/25/17 02/25/17 Range/Units 04:10 04:10 WBC 14.7 H (3.8-10.6) k/uL RBC 2.95 L (3.80-5.40) m/uL Hgb 8.6 L (11.4-16.0) gm/dL Hct 27.1 L (34.0-46.0) % Neutrophils # 12.9 H (1.3-7.7) k/uL Lymphocytes # 0.9 L (1.0-4.8) k/uL Chloride 109 H (98-107) mmol/L BUN 38 H (7-17) mg/dL Creatinine 2.30 H (0.52-1.04) mg/dL Assessment and Plan Assessment: Impression. 1. Acute kidney injury secondary to prerenal from perforation, good urine output stable creatinine 2.4 > 2.3. 2. Chronic kidney disease with a baseline creatinine of 1.8 on 11/13/2016 when she was admitted here, subsequently creatinine went up to 3.1 dated 01/09/2017 and 01/24/2017 additionally she has proteinuria for about 3 g. Extend of workup is unclear, the cause of this glomerulonephritis is unclear. possible FSGS or membranous. 3. Admitted with perforation of cecum. This happened in the post-colonoscopy time. It is not clear whether this was from diverticulitis or from the procedure. She is on antibiotics and she is stable. 4. Mild degree of non-gap acidosis from acute kidney injury, bic down to 17 5. Mild hyponatremia from prerenal, resolving, Na 133. on LR IV 6. Fair amount of abdominal pain needs further monitored closely. Recommendation. Cont with Ringer's lactate at 100 mL an hour. Cont fentanyl IV but at reduced frequency from every 3 hours 50 mg to every 6 hours and maintain the morphine sulfate every 4 hours As needed. Regarding the acidosis her bicarb is down so start Bicarb in IVF Regarding the hyponatremia again expected to improve with resolution of her acute kidney injury. Blood pressure he is being maintained with ca channel Sydnie Cleviprex, . Monitor labs daily.
[2017-02-25] MEDS ORDERED: SODIUM BICARB 8.4% 50 ML SYR (1 MEQ/ML) IV ONE (09:00)
[2017-02-25] MEDS: levETIRAcetam IV 500 MG in SODIUM CHLORIDE 0.9% 100 ML IVPB SCH ×2 (09:24→21:13)
[2017-02-25] MEDS: PANTOPRAZOLE 40 MG/10 ML VIAL IV SCH (09:24)
[2017-02-25] MEDS ORDERED: LABETALOL 5 MG/ML VIAL MDV IVP PRN ×2 (09:48→13:29)
[2017-02-25] MEDS ORDERED: cloNIDine 0.3 MG/24HR PATCH 1 PATCH PATCH TRANSDERM SCH (10:15)
--- NOTE | 2017-02-25 10:17 | P.PN ---
Subjective Progress Note Date: 02/25/17 Principal diagnosis: Status post exploratory laparotomy Progress note dated 02/25/2017 This is a 76-year-old female postop day #2 status post exploratory laparotomy with repair of serosal tear and sigmoid colectomy. She's doing relatively well. Feeling well. She still little sleepy. Having issues with her blood pressure. She's currently on Cleviprex at 5 mg an hour. I have given the nurses orders for either IV labetalol her IV Vasotec so that we can wean off the other medication. The patient's on O2 at 2 L/m. Getting lactated Ringer's at 100 mL an hour. Other than that, the patient's doing very well. Feeling well. She is doing her incentive spirometer every hour. Objective - Vital Signs Vital signs: Vital Signs Temp 97.8 F 02/25/17 08:00 Pulse 70 02/25/17 10:00 Resp 19 02/25/17 10:00 BP 141/70 02/25/17 10:00 Pulse Ox 99 02/25/17 10:00 Intake & Output 02/24/17 02/25/17 02/25/17 18:59 06:59 18:59 Intake Total 1674.2 1476.7 511.433 Output Total 945 1115 245 Balance 729.2 361.7 266.433 Weight 67.1 kg 65.2 kg 65.2 kg Intake: IV 1286.0 1373.5 462.0 0.9NaCl for Pressure Bag 36 36 12 Lactated Ringers 1,000 ml 1200 1200 300 @ 100 mls/hr IV .Q10H [facility] Rx#:[id number] Piperacillin-Tazobactam 3 50.0 37.5 50.0 .375 gm In Dextrose/Water 1 50ml.bag @ 12.5 mls/hr IVPB Q12H [facility] Rx#: [id number] levETIRAcetam IV 500 mg 100 100 In Sodium Chloride 0.9% 100 ml @ 400 mls/hr IVPB Q12HR [facility] Rx#:[id number] Intake, IV Titration 388.2 103.2 49.433 Amount Clevidipine Butyrate 25 88.2 103.2 49.433 mg In Empty Bag 1 bag @ 1 MG/HR 2 mls/hr IV .Q24H [facility] Rx#:[id number] Magnesium Sulfate-D5w Pmx 200 1 gm In Dextrose/Water 1 100ml.bag @ 100 mls/hr IVPB Q1H [facility] Rx#: [id number] levETIRAcetam IV 500 mg 100 In Sodium Chloride 0.9% 100 ml @ 400 mls/hr IVPB Q12HR [facility] Rx#:[id number] Output: Gastric Drainage 100 Urine 845 1115 245 Other: Voiding Method Indwelling Catheter Indwelling Catheter ABP, PAP, CO, CI - Last Documented Arterial Blood Pressure 143/55 - Exam No acute distress, oriented 3. HEENT examination is grossly unremarkable. Mucous membranes are moist. No oral lesions. NG tube in place. Nasal O2 in place. Neck supple. Full range of motion. No adenopathy thyromegaly or neck vein distention. Cardiovascular examination reveals regular rhythm rate. S1-S2 normal. No S3 or S4. No discernible murmur noted. Lungs reveal clear breath sounds. Her sounds are equal bilaterally. No adventitious lung sounds including wheezes rhonchi or crackles. Abdomen soft without bowel sounds. There is mild tenderness. Extremities are intact. No cyanosis clubbing or edema. Skin is without rash or lesion. Neurologic examination is brief but nonfocal. - Labs CBC & Chem 7: 02/25/17 04:10 02/25/17 04:10 Labs: Abnormal Lab Results - Last 24 Hours (Table) 02/25/17 02/25/17 Range/Units 04:10 04:10 WBC 14.7 H (3.8-10.6) k/uL RBC 2.95 L (3.80-5.40) m/uL Hgb 8.6 L (11.4-16.0) gm/dL Hct 27.1 L (34.0-46.0) % Neutrophils # 12.9 H (1.3-7.7) k/uL Lymphocytes # 0.9 L (1.0-4.8) k/uL Chloride 109 H (98-107) mmol/L BUN 38 H (7-17) mg/dL Creatinine 2.30 H (0.52-1.04) mg/dL Assessment and Plan (1) Abdominal pain Current Visit: Yes Status: Acute Code(s): R10.9 - UNSPECIFIED ABDOMINAL PAIN SNOMED Code(s): 61874853 (2) Diverticulitis of sigmoid colon Current Visit: Yes Status: Acute Code(s): K57.32 - DVTRCLI OF LG INT W/O PERFORATION OR ABSCESS W/O BLEEDING SNOMED Code(s): 788026346 (3) Perforation of sigmoid colon due to diverticulitis Current Visit: Yes Status: Acute Code(s): K57.20 - DVTRCLI OF LG INT W PERFORATION AND ABSCESS W/O BLEEDING SNOMED Code(s): 6096578930587923 (4) Heart failure Current Visit: Yes Status: Acute Code(s): I50.9 - HEART FAILURE, UNSPECIFIED SNOMED Code(s): 86744094 (5) CVA (cerebral vascular accident) Current Visit: Yes Status: Acute Code(s): I63.9 - CEREBRAL INFARCTION, UNSPECIFIED SNOMED Code(s): 776792399 (6) Hypertension Current Visit: Yes Status: Acute Code(s): I10 - ESSENTIAL (PRIMARY) HYPERTENSION SNOMED Code(s): 85925839 (7) Seizure disorder Current Visit: Yes Status: Acute Code(s): G40.909 - EPILEPSY, UNSP, NOT INTRACTABLE, WITHOUT STATUS EPILEPTICUS SNOMED Code(s): 308265725 (8) Perforated abdominal viscus Current Visit: Yes Status: Acute Code(s): LQP4491 - SNOMED Code(s): 540011589 (9) Dehydration Current Visit: No Status: Acute Code(s): E86.0 - DEHYDRATION SNOMED Code(s ): 31735988 Plan: Plan dated 02/23/2017 The patient's currently getting fluids in the form of lactated Ringer's at 100 mL an hour. Nasal O2 in place at 3 L. NG tube in place. Labs and x-rays are ordered for the morning. The patient will receive a unit of blood. No additional recommendations are made. We'll make sure that the patient has adequate pain control. In addition, we'll make sure the patient went away, uses the incentive spirometer. Plan dated 02/25/2017 The patient's doing relatively well. The patient still on a dihydropyridine calcium channel opal for blood pressure control. I've given orders for IV labetalol and IV Vasotec to see if we can wean that medication off. The patient 's clonidine patches been increased to TTS #3. The patient still on O2. NG tube in place. The patient is doing her incentive spirometer but not doing very well. We'll continue to follow very closely. Additional recommendations and suggestions are forthcoming. Time with Patient: Greater than 30
--- NOTE | 2017-02-25 11:00 | P.PN ---
Subjective Progress Note Date: 02/25/17 Patient is postop day #2 status post exploratory laparotomy sigmoid colon resection oversewing of serosal tear cecum. At this time the patient is currently on cleviprex at 5 mg an hour to control her blood pressure. This is being managed by wood repatcher. Patient's hemoglobin is down to 8.6. The patient states she has decreased abdominal discomfort. We are awaiting resolution of ileus and ostomy output. Objective - Vital Signs Vital signs: Vital Signs Temp 97.8 F 02/25/17 08:00 Pulse 70 02/25/17 10:00 Resp 19 02/25/17 10:00 BP 141/70 02/25/17 10:00 Pulse Ox 99 02/25/17 10:00 Intake & Output 02/24/17 02/25/17 02/25/17 18:59 06:59 18:59 Intake Total 1674.2 1476.7 512.000 Output Total 945 1115 245 Balance 729.2 361.7 267.000 Weight 67.1 kg 65.2 kg 65.2 kg Intake: IV 1286.0 1373.5 462.0 0.9NaCl for Pressure Bag 36 36 12 Lactated Ringers 1,000 ml 1200 1200 300 @ 100 mls/hr IV .Q10H [facility] Rx#:[id number] Piperacillin-Tazobactam 3 50.0 37.5 50.0 .375 gm In Dextrose/Water 1 50ml.bag @ 12.5 mls/hr IVPB Q12H [facility] Rx#: [id number] levETIRAcetam IV 500 mg 100 100 In Sodium Chloride 0.9% 100 ml @ 400 mls/hr IVPB Q12HR [facility] Rx#:[id number] Intake, IV Titration 388.2 103.2 50.000 Amount Clevidipine Butyrate 25 88.2 103.2 50.000 mg In Empty Bag 1 bag @ 1 MG/HR 2 mls/hr IV .Q24H [facility] Rx#:[id number] Magnesium Sulfate-D5w Pmx 200 1 gm In Dextrose/Water 1 100ml.bag @ 100 mls/hr IVPB Q1H [facility] Rx#: [id number] levETIRAcetam IV 500 mg 100 In Sodium Chloride 0.9% 100 ml @ 400 mls/hr IVPB Q12HR [facility] Rx#:[id number] Output: Gastric Drainage 100 Urine 845 1115 245 Other: Voiding Method Indwelling Catheter Indwelling Catheter ABP, PAP, CO, CI - Last Documented Arterial Blood Pressure 143/55 - Constitutional General appearance: Present: average body habitus - Respiratory Details: Slight decreased breath sounds at the bases Respiratory: bilateral: CTA - Cardiovascular Rhythm: regular Heart sounds: normal: S1, S2 - Gastrointestinal Gastrointestinal Comment(s): Incision clean and dry Ostomy pink General gastrointestinal: Present: decreased bowel sounds, soft - Psychiatric Psychiatric Comment(s): Patient with some anxiety this morning. Psychiatric: Present: A&O x's 3, appropriate affect, intact judgment & insight - Labs CBC & Chem 7: 02/25/17 04:10 02/25/17 04:10 Labs: Abnormal Lab Results - Last 24 Hours (Table) 02/25/17 02/25/17 Range/Units 04:10 04:10 WBC 14.7 H (3.8-10.6) k/uL RBC 2.95 L (3.80-5.40) m/uL Hgb 8.6 L (11.4-16.0) gm/dL Hct 27.1 L (34.0-46.0) % Neutrophils # 12.9 H (1.3-7.7) k/uL Lymphocytes # 0.9 L (1.0-4.8) k/uL Chloride 109 H (98-107) mmol/L BUN 38 H (7-17) mg/dL Creatinine 2.30 H (0.52-1.04) mg/dL Assessment and Plan Assessment: Impression/plan: 1. Postop day #2 exploratory laparotomy for acute abdomen free air 2. Await return of bowel function 3. Urine output adequate patient's stage IV renal disease 4. Hypertension being managed by medicine 5. History of seizure disorder Plan: 1. Await return of bowel function 2. DR. Wyatt wood repatcher managing hypertension 3. Leukocytosis improved white count down to 14.7 4. Pain control as per nephrology secondary to decreased renal function 5. Hemoglobin decreased to 8.6 we will follow
[2017-02-25] MEDS: ENALAPRILAT 1.25 MG/ML 1 ML VIAL IVP PRN ×2 (12:18→17:09)
[2017-02-25 12:26] LABS: Basophils % (A) 0 %; Eosinophils # (A) 0.1 k/uL (0-0.7); Eosinophils % (A) 1 %; HCT 26.3 % (34.0-46.0); HGB 8.2 gm/dL (11.4-16.0); Hypochromasia Slight; Lymphocytes # (A) 0.8 k/uL (1.0-4.8); Lymphocytes % (A) 6 %; MCH 29.1 pg (25.0-35.0); MCHC 31.2 g/dL (31.0-37.0); MCV 93.4 fL (80.0-100.0); Mean Platelet Volume 7.9; Monocytes # (A) 0.6 k/uL (0-1.0); Monocytes % (A) 5 %; Neutrophils # (A) 11.6 k/uL (1.3-7.7); Neutrophils % (A) 88 %; Platelet Count 218 k/uL (150-450); RBC 2.82 m/uL (3.80-5.40); RDW 15.4 % (11.5-15.5); WBC 13.1 k/uL (3.8-10.6)
[2017-02-25] MEDS: LABETALOL 5 MG/ML VIAL MDV IVP PRN (16:44)
[2017-02-25 18:51] LABS: Basophils % (A) 0 %; Eosinophils # (A) 0.1 k/uL (0-0.7); Eosinophils % (A) 1 %; HCT 29.6 % (34.0-46.0); HGB 9.5 gm/dL (11.4-16.0); Lymphocytes # (A) 0.9 k/uL (1.0-4.8); Lymphocytes % (A) 6 %; MCH 29.3 pg (25.0-35.0); MCHC 31.9 g/dL (31.0-37.0); MCV 91.8 fL (80.0-100.0); Monocytes # (A) 0.7 k/uL (0-1.0); Monocytes % (A) 5 %; Neutrophils # (A) 12.9 k/uL (1.3-7.7); Neutrophils % (A) 88 %; Platelet Count 229 k/uL (150-450); RBC 3.22 m/uL (3.80-5.40); RDW 14.1 % (11.5-15.5); WBC 14.8 k/uL (3.8-10.6)
--- NOTE | 2017-02-25 20:26 | PN ---
PROGRESS NOTE DATE OF SERVICE: 02/25/17 The patient is seen in the ICU, sitting up in a bedside chair. Claims that abdominal pain is slightly better than yesterday, but has not been passing any gas or no bowel movements. VITAL SIGNS: Temperature 97.8, pulse 70, respiration 19, blood pressure 141/70, O2 saturation 99%. HEENT atraumatic, normocephalic. Pupils equal and reactive to light. Extraocular movements intact. Buccal mucosa is fair. Neck is supple. Lungs are clear to auscultation. No rales, rhonchi, wheezes. Heart is regular rate and rhythm without murmurs or gallop rhythm. Abdomen is soft, nontender, nondistended. Bowel sounds absent. Abdomen is soft, nontender, nondistended. Bowel sounds are positive. Extremities no edema, clubbing, cyanosis. Skin without rashes or pigmentation. Neurological examination cranial nerves 2-12 are grossly intact. No gross motor or sensory deficit. Musculoskeletal: Moves all extremities. No joint deformities. LAB: CBC, white blood count of 14.7, hemoglobin 8.6, hematocrit 27.1, and platelet count of 238. Chemical profile sodium 139, potassium 3.9, chloride 109, bicarb 24, BUN 38, creatinine 2.3, and glucose of 89. ASSESSMENT: 1. Perforation of sigmoid colon due to diverticulitis. 2. Acute diverticulitis. 3. Severe postop anemia. 4. History of coronary artery disease and congestive heart failure. 5. Multiple cerebrovascular accidents. 6. Hypertension. 7. Seizure disorder. 8. Dehydration. 9. Acute renal failure. The patient's creatinine creeping up to 2.3. The patient remains in ICU. IV fluids are continued. I and Os are being monitored. Renal function is being monitored. PLAN: To avoid nephrotoxins. Nephrology is following the patient and making appropriately appropriate changes. Will monitor CBC closely. Type, crossmatch and transfuse if hemoglobin is less than 8.0. The patient is stable currently at her home medications. No concern about seizures or uncontrolled hypertension. Plan is to continue current management and transfer out of ICU when deemed appropriate by rehab department manager. MMODL / IJN: [id number] /
[2017-02-26] MEDS: HEPARIN SODIUM,PORCINE 5,000 UNIT/ML 1 ML VIAL SQ SCH ×3 (00:45→16:06)
[2017-02-26] MEDS: CLEVIDIPINE BUTYRATE 25 MG in EMPTY BAG 1 BAG IV SCH ×2 (03:28→10:13)
[2017-02-26] MEDS: PIPERACILLIN-TAZOBACTAM 3.375 GM in DEXTROSE/WATER 1 50ML.BAG IVPB SCH ×2 (05:19→18:33)
[2017-02-26] MEDS: MORPHINE SULFATE 5 MG/ML SYRINGE IV PRN ×4 (05:33→21:16)
[2017-02-26 05:42] LABS: Basophils % (A) 0 %; Eosinophils # (A) 0.2 k/uL (0-0.7); Eosinophils % (A) 2 %; HCT 28.4 % (34.0-46.0); HGB 9.2 gm/dL (11.4-16.0); Lymphocytes # (A) 0.8 k/uL (1.0-4.8); Lymphocytes % (A) 6 %; MCH 29.3 pg (25.0-35.0); MCHC 32.3 g/dL (31.0-37.0); MCV 90.7 fL (80.0-100.0); Mean Platelet Volume 7.9; Monocytes # (A) 0.6 k/uL (0-1.0); Monocytes % (A) 4 %; Neutrophils # (A) 11.6 k/uL (1.3-7.7); Neutrophils % (A) 87 %; Platelet Count 235 k/uL (150-450); RBC 3.13 m/uL (3.80-5.40); RDW 14.3 % (11.5-15.5); WBC 13.3 k/uL (3.8-10.6)
[2017-02-26] MEDS: LACTATED RINGERS 1,000 ML IV SCH ×4 (05:45→18:58)
[2017-02-26 06:09] LABS: Calcium 8.5 mg/dL (8.4-10.2); Magnesium 1.9 mg/dL (1.6-2.3); Phosphorus 3.3 mg/dL (2.5-4.5); Potassium 3.9 mmol/L (3.5-5.1)
[2017-02-26] MEDS: PANTOPRAZOLE 40 MG/10 ML VIAL IV SCH (08:26)
[2017-02-26] MEDS: levETIRAcetam IV 500 MG in SODIUM CHLORIDE 0.9% 100 ML IVPB SCH ×2 (08:27→21:11)
[2017-02-26] MEDS ORDERED: cloNIDine 0.2 MG/24HR PATCH 1 PATCH PATCH TRANSDERM SCH (09:00)
[2017-02-26] MEDS: LABETALOL 5 MG/ML VIAL MDV IVP PRN ×4 (10:09→21:12)
--- NOTE | 2017-02-26 10:37 | P.PN ---
Subjective Progress Note Date: 02/26/17 Principal diagnosis: Status post exploratory laparotomy Progress note dated 02/25/2017 This is a 76-year-old female postop day #2 status post exploratory laparotomy with repair of serosal tear and sigmoid colectomy. She's doing relatively well. Feeling well. She still little sleepy. Having issues with her blood pressure. She's currently on Cleviprex at 5 mg an hour. I have given the nurses orders for either IV labetalol her IV Vasotec so that we can wean off the other medication. The patient's on O2 at 2 L/m. Getting lactated Ringer's at 100 mL an hour. Other than that, the patient's doing very well. Feeling well. She is doing her incentive spirometer every hour. Progress note dated 02/26/2017 This is a 76-year-old female who is postop day #3 status post exploratory laparotomy with repair of serosal tear and sigmoid colectomy for presumed perforation of the sigmoid colon in the area of the diverticulum. The patient' s exposure laparotomy did not reveal the actual perforation site to Dr. Crys Stevenson Ethan did resect the sigmoid colon which is where the patient had significant sigmoid diverticuli. The patient is doing relatively well. About the only thing that were still having difficulty with his high blood pressure. She still on Cleviprex at 4 mg an hour. The nurses do have orders for IV labetalol and IV Vasotec to use of that we can C we can wean the Cleviprex off. The patient still has an NG tube in place. The patient has not had no output from the colostomy site. Other than that she's doing well. Minimal pain. Working on her incentive spirometer. No particular complaints at this time. Objective - Vital Signs Vital signs: Vital Signs Temp 98.0 F 02/26/17 08:00 Pulse 73 02/26/17 10:15 Resp 10 L 02/26/17 10:15 BP 161/76 02/26/17 10:15 Pulse Ox 94 L 02/26/17 10:15 Intake & Output 02/25/17 02/26/17 02/26/17 18:59 06:59 18:59 Intake Total 2286.502 0097.8 612.0 Output Total 780 905 185 Balance 866.667 491.8 427.0 Weight 65.2 kg 69 kg Intake: IV 1286.0 1336 562.0 0.9NaCl for Pressure Bag 36 36 12 Lactated Ringers 1,000 ml 1100 1200 400 @ 100 mls/hr IV .Q10H [facility] Rx#:[id number] Piperacillin-Tazobactam 3 50.0 50.0 .375 gm In Dextrose/Water 1 50ml.bag @ 12.5 mls/hr IVPB Q12H [facility] Rx#: [id number] levETIRAcetam IV 500 mg 100 100 100 In Sodium Chloride 0.9% 100 ml @ 400 mls/hr IVPB Q12HR [facility] Rx#:[id number] Intake, IV Titration 50.667 60.8 50 Amount Clevidipine Butyrate 25 50.667 60.8 50 mg In Empty Bag 1 bag @ 1 MG/HR 2 mls/hr IV .Q24H [facility] Rx#:[id number] Blood Product 310 Rc Pheresis 2 As3 Unit 310 [id number] Output: Gastric Drainage 125 Urine 655 905 185 Other: Voiding Method Indwelling Catheter Indwelling Catheter Indwelling Catheter ABP, PAP, CO, CI - Last Documented Arterial Blood Pressure 149/64 - Exam No acute distress, oriented 3. HEENT examination is grossly unremarkable. Mucous membranes are moist. No oral lesions. NG tube in place. Neck supple. Full range of motion. No adenopathy thyromegaly or neck vein distention. Cardiovascular examination reveals regular rhythm rate. S1-S2 normal. No S3 or S4. No discernible murmur noted. Lungs reveal clear breath sounds. Her sounds are equal bilaterally. No adventitious lung sounds including wheezes rhonchi or crackles. Abdomen soft without bowel sounds. There is mild tenderness. Extremities are intact. No cyanosis clubbing or edema. Skin is without rash or lesion. Neurologic examination is brief but nonfocal. - Labs CBC & Chem 7: 02/26/17 05:20 02/26/17 05:20 Labs: Abnormal Lab Results - Last 24 Hours (Table) 02/23/17 02/25/17 02/25/17 Range/Units 03:13 12:12 18:30 WBC 13.1 H 14.8 H (3.8-10.6) k/uL RBC 2.82 L 3.22 L (3.80-5.40) m/uL Hgb 8.2 L 9.5 L (11.4-16.0) gm/dL Hct 26.3 L 29.6 L (34.0-46.0) % Neutrophils # 11.6 H 12.9 H (1.3-7.7) k/uL Lymphocytes # 0.8 L 0.9 L (1.0-4.8) k/uL Chloride (98-107) mmol/L BUN (7-17) mg/dL Creatinine (0.52-1.04) mg/dL Crossmatch See Detail 02/26/17 02/26/17 Range/Units 05:20 05:20 WBC 13.3 H (3.8-10.6) k/uL RBC 3.13 L (3.80-5.40) m/uL Hgb 9.2 L (11.4-16.0) gm/dL Hct 28.4 L (34.0-46.0) % Neutrophils # 11.6 H (1.3-7.7) k/uL Lymphocytes # 0.8 L (1.0-4.8) k/uL Chloride 110 H (98-107) mmol/L BUN 32 H (7-17) mg/dL Creatinine 2.00 H (0.52-1.04) mg/dL Crossmatch Assessment and Plan (1) Abdominal pain Current Visit: Yes Status: Acute Code(s): R10.9 - UNSPECIFIED ABDOMINAL PAIN SNOMED Code(s): 60805301 (2) Diverticulitis of sigmoid colon Current Visit: Yes Status: Acute Code(s): K57.32 - DVTRCLI OF LG INT W/O PERFORATION OR ABSCESS W/O BLEEDING SNOMED Code(s): 097249894 (3) Perforation of sigmoid colon due to diverticulitis Current Visit: Yes Status: Acute Code(s): K57.20 - DVTRCLI OF LG INT W PERFORATION AND ABSCESS W/O BLEEDING SNOMED Code(s): 7161576634770323 (4) Heart failure Current Visit: Yes Status: Acute Code(s): I50.9 - HEART FAILURE, UNSPECIFIED SNOMED Code(s): 77845652 (5) CVA (cerebral vascular accident) Current Visit: Yes Status: Acute Code(s): I63.9 - CEREBRAL INFARCTION, UNSPECIFIED SNOMED Code(s): 300860871 (6) Hypertension Current Visit: Yes Status: Acute Code(s): I10 - ESSENTIAL (PRIMARY) HYPERTENSION SNOMED Code(s): 24005182 (7) Seizure disorder Current Visit: Yes Status: Acute Code(s): G40.909 - EPILEPSY, UNSP, NOT INTRACTABLE, WITHOUT STATUS EPILEPTICUS SNOMED Code(s): 357836126 (8) Perforated abdominal viscus Current Visit: Yes Status: Acute Code(s): RXX9628 - SNOMED Code(s): 789538935 (9) Dehydration Current Visit: No Status: Acute Code(s): E86.0 - DEHYDRATION SNOMED Code(s ): 52347311 Plan: Plan dated 02/23/2017 The patient's currently getting fluids in the form of lactated Ringer's at 100 mL an hour. Nasal O2 in place at 3 L. NG tube in place. Labs and x-rays are ordered for the morning. The patient will receive a unit of blood. No additional recommendations are made. We'll make sure that the patient has adequate pain control. In addition, we'll make sure the patient went away, uses the incentive spirometer. Plan dated 02/25/2017 The patient's doing relatively well. The patient still on a dihydropyridine calcium channel opal for blood pressure control. I've given orders for IV labetalol and IV Vasotec to see if we can wean that medication off. The patient 's clonidine patches been increased to TTS #3. The patient still on O2. NG tube in place. The patient is doing her incentive spirometer but not doing very well. We'll continue to follow very closely. Additional recommendations and suggestions are forthcoming. Plan dated 02/26/2017 The patient's chest x-ray shows some minimal atelectasis in the left midlung. Encouraged patient to take deep breaths coughing clearing secretions. In addition, recommending the use of the incentive spirometer every hour. In addition, we'll continue try to wean the patient off the Cleviprex. Currently she is at 4 mg an hour. The nurses have to use both on IV labetalol and IV Vasotec if needed. The patient's pain is well controlled. Other than this the patient's doing well. The patient's NG tube still in place. No upper yet from the colostomy. Surgery is not seen the patient yet. The patient could move out of the ICU once the Cleviprex his been weaned off. Time with Patient: Greater than 30
[2017-02-26] MEDS: ENALAPRILAT 1.25 MG/ML 1 ML VIAL IVP PRN (10:48)
--- NOTE | 2017-02-26 10:52 | P.PN ---
Subjective Progress Note Date: 02/26/17 Patient is status post exploratory laparotomy including descending colostomy creation by Dr. Cárdenas. She complains of thirst and dry mouth. She has trouble with high blood pressure as she still in the ICU. Her hemoglobin is now Objective - Vital Signs Vital signs: Vital Signs Temp 98.0 F 02/26/17 08:00 Pulse 73 02/26/17 10:15 Resp 10 L 02/26/17 10:15 BP 161/76 02/26/17 10:15 Pulse Ox 94 L 02/26/17 10:15 Intake & Output 02/25/17 02/26/17 02/26/17 18:59 06:59 18:59 Intake Total 3015.961 9108.8 612.0 Output Total 780 905 185 Balance 866.667 491.8 427.0 Weight 65.2 kg 69 kg Intake: IV 1286.0 1336 562.0 0.9NaCl for Pressure Bag 36 36 12 Lactated Ringers 1,000 ml 1100 1200 400 @ 100 mls/hr IV .Q10H [facility] Rx#:[id number] Piperacillin-Tazobactam 3 50.0 50.0 .375 gm In Dextrose/Water 1 50ml.bag @ 12.5 mls/hr IVPB Q12H [facility] Rx#: [id number] levETIRAcetam IV 500 mg 100 100 100 In Sodium Chloride 0.9% 100 ml @ 400 mls/hr IVPB Q12HR [facility] Rx#:[id number] Intake, IV Titration 50.667 60.8 50 Amount Clevidipine Butyrate 25 50.667 60.8 50 mg In Empty Bag 1 bag @ 1 MG/HR 2 mls/hr IV .Q24H [facility] Rx#:[id number] Blood Product 310 Rc Pheresis 2 As3 Unit 310 [id number] Output: Gastric Drainage 125 Urine 655 905 185 Other: Voiding Method Indwelling Catheter Indwelling Catheter Indwelling Catheter ABP, PAP, CO, CI - Last Documented Arterial Blood Pressure 149/64 - Exam GENERAL: Well developed and in no acute distress. Pleasant. HEENT: No sclera icterus. Extraocular movements grossly intact. Dry buccal mucosa. Head is atraumatic, normocephalic. Hears conversational speech. No nasal drainage. Nasogastric present with bilious content. CHEST: Non-labored respirations and equal bilateral excursions. CARDIOVASCULAR: Regular rate and rhythm. Palpable 2+ radial pulses. ABDOMEN: Soft, Nondistended. Midline dressing with wound VAC clean dry and intact. Colostomy with minimal flatus. MUSCULOSKELETAL: No clubbing, cyanosis or edema. NEUROLOGIC: No focal or lateralizing signs. PSYCH: Appropriate affect. Alert and oriented to person, place and time. SKIN: Good skin turgor. Well perfused. - Labs CBC & Chem 7: 02/26/17 05:20 02/26/17 05:20 Labs: Abnormal Lab Results - Last 24 Hours (Table) 02/23/17 02/25/17 02/25/17 Range/Units 03:13 12:12 18:30 WBC 13.1 H 14.8 H (3.8-10.6) k/uL RBC 2.82 L 3.22 L (3.80-5.40) m/uL Hgb 8.2 L 9.5 L (11.4-16.0) gm/dL Hct 26.3 L 29.6 L (34.0-46.0) % Neutrophils # 11.6 H 12.9 H (1.3-7.7) k/uL Lymphocytes # 0.8 L 0.9 L (1.0-4.8) k/uL Chloride (98-107) mmol/L BUN (7-17) mg/dL Creatinine (0.52-1.04) mg/dL Crossmatch See Detail 02/26/17 02/26/17 Range/Units 05:20 05:20 WBC 13.3 H (3.8-10.6) k/uL RBC 3.13 L (3.80-5.40) m/uL Hgb 9.2 L (11.4-16.0) gm/dL Hct 28.4 L (34.0-46.0) % Neutrophils # 11.6 H (1.3-7.7) k/uL Lymphocytes # 0.8 L (1.0-4.8) k/uL Chloride 110 H (98-107) mmol/L BUN 32 H (7-17) mg/dL Creatinine 2.00 H (0.52-1.04) mg/dL Crossmatch Assessment and Plan (1) Status post colostomy Current Visit: Yes Status: Acute Code(s): Z93.3 - COLOSTOMY STATUS SNOMED Code(s): 462115734 (2) ARF (acute renal failure) Current Visit: Yes Status: Acute Code(s): N17.9 - ACUTE KIDNEY FAILURE, UNSPECIFIED SNOMED Code(s): 06509188 (3) Perforation of sigmoid colon due to diverticulitis Current Visit: Yes Status: Acute Code(s): K57.20 - DVTRCLI OF LG INT W PERFORATION AND ABSCESS W/O BLEEDING SNOMED Code(s): 7390775549252363 Plan: 1. In discussion with dental office coordinator, agreeable with continued intensive care evaluation as her blood pressure is labile. 2. May start ice chips and popsicles. Do not advance diet. I am rounding on behalf of Dr. Graham Long.
[2017-02-26] MEDS: hydrALAZINE HCL 20 MG/ML 1 ML VIAL IVP PRN ×3 (11:24→15:28)
[2017-02-26] MEDS: NITROGLYCERIN OINT 1 INCH/GM PACKET TOPICAL SCH ×2 (11:56→18:33)
--- NOTE | 2017-02-26 15:47 | P.PN ---
Subjective Progress Note Date: 02/26/17 Progress note being dictated for Dr. Fuller. Interval history: This is a 76-year-old female admitted with perforation sigmoid colon secondary to diverticulitis status post exploratory laparotomy with resection, descending colostomy. Maintained on IV fluid hydration, renal function improving, WBC improving. Afebrile. Telemetry sinus rhythm. Labile blood pressure, Systolic blood pressures ranging 140s to 160s, maintained on Clevidipine. No flatus, no stool from colostomy. Tolerating ice chips with no nausea or vomiting Hemoglobin 9.2. Pain controlled. Objective - Vital Signs Vital signs: Vital Signs Temp 98.9 F 02/26/17 12:00 Pulse 65 02/26/17 13:15 Resp 11 L 02/26/17 13:15 BP 151/73 02/26/17 13:15 Pulse Ox 96 02/26/17 13:15 Intake & Output 02/25/17 02/26/17 02/26/17 18:59 06:59 18:59 Intake Total 2882.043 5300.8 811.7 Output Total 780 905 325 Balance 866.667 491.8 486.7 Weight 65.2 kg 69 kg Intake: IV 1286.0 1336 751.0 0.9NaCl for Pressure Bag 36 36 21 Lactated Ringers 1,000 ml 1100 1200 580 @ 60 mls/hr IV .[id number] [facility] Rx#:[id number] Piperacillin-Tazobactam 3 50.0 50.0 .375 gm In Dextrose/Water 1 50ml.bag @ 12.5 mls/hr IVPB Q12H [facility] Rx#: [id number] levETIRAcetam IV 500 mg 100 100 100 In Sodium Chloride 0.9% 100 ml @ 400 mls/hr IVPB Q12HR [facility] Rx#:[id number] Intake, IV Titration 50.667 60.8 60.7 Amount Clevidipine Butyrate 25 50.667 60.8 60.7 mg In Empty Bag 1 bag @ 1 MG/HR 2 mls/hr IV .Q24H [facility] Rx#:[id number] Blood Product 310 Rc Pheresis 2 As3 Unit 310 [id number] Output: Gastric Drainage 125 Urine 655 905 325 Other: Voiding Method Indwelling Catheter Indwelling Catheter Indwelling Catheter ABP, PAP, CO, CI - Last Documented Arterial Blood Pressure 162/65 - Exam PHYSICAL EXAM: VITAL SIGNS: As above GENERAL: Sitting up in bed, no acute distress HEENT: Conjunctivae normal. eyes normal. NG tube present. NECK: No JVD. No thyroid enlargement. No LNs CARDIOVASCULAR: S1, S2 muffled. No murmur RESPIRATION: Breath sounds diminished in the bases. No rhonchi or crackles. No bronchial breathing. ABDOMEN: Soft, S/P surgery. Colostomy present,no flatus, no stool. no output. LEGS: No edema. no swelling PSYCHIATRY: Alert and oriented -3, mood and affect normal. NERVOUS SYSTEM: Cranial N 2-12 grossly normal. Moves all 4 limbs. Diffuse weakness No focal deficits. No sensory deficit. Skin: no ulcer no rash Joints: No active swelling. No inflammation. Lymphatic system. No LN neck axilla or groin. - Labs CBC & Chem 7: 02/26/17 05:20 02/26/17 05:20 Labs: Abnormal Lab Results - Last 24 Hours (Table) 02/23/17 02/25/17 02/26/17 Range/Units 03:13 18:30 05:20 WBC 14.8 H 13.3 H (3.8-10.6) k/uL RBC 3.22 L 3.13 L (3.80-5.40) m/uL Hgb 9.5 L 9.2 L (11.4-16.0) gm/dL Hct 29.6 L 28.4 L (34.0-46.0) % Neutrophils # 12.9 H 11.6 H (1.3-7.7) k/uL Lymphocytes # 0.9 L 0.8 L (1.0-4.8) k/uL Chloride (98-107) mmol/L BUN (7-17) mg/dL Creatinine (0.52-1.04) mg/dL Crossmatch See Detail 02/26/17 Range/Units 05:20 WBC (3.8-10.6) k/uL RBC (3.80-5.40) m/uL Hgb (11.4-16.0) gm/dL Hct (34.0-46.0) % Neutrophils # (1.3-7.7) k/uL Lymphocytes # (1.0-4.8) k/uL Chloride 110 H (98-107) mmol/L BUN 32 H (7-17) mg/dL Creatinine 2.00 H (0.52-1.04) mg/dL Crossmatch Assessment and Plan Assessment: 1. Perforation of sigmoid colon due to diverticulitis, status post surgical repair with colostomy 2. Acute diverticulitis 3. Severe postop anemia 4. CAD 5. Hypertension 6. Seizure disorder 7. Acute Acute failure Plan: Continue on current medication regime ,monitoring and symptomatic treatment. Maintain IV fluid hydration. Aggressive pulmonary toileting. Pain management/diet advancement as per surgery. Follow closely with multiple consults. Further recommendations to follow. The impression and plan of care has been dictated as directed. : I performed a history and examination of this patient, discussed the same with the dictator. I agree with the dictator's note ,documented as a scribe. Any additional findings or plans will be noted.
--- NOTE | 2017-02-26 17:00 | PN ---
PROGRESS NOTE The patient is seen for followup for chronic kidney disease, acute kidney injury and uncontrolled hypertension. She remains with an NG tube and currently patient is maintained on Cleviprex drip. She is not having much abdominal pain. IV fluids are at 100 an hour. Urine output has improved. EXAMINATION: Blood pressure is 155/73, heart rate 56 per minute. Patient is afebrile. Examination of the heart: S1, S2. Examination lungs: Bilateral breath sounds are heard. Abdomen is soft, currently with a binder. Examination lower extremity shows no significant edema. [employer] exam is grossly intact. Patient moving all 4 extremities. LABS: Sodium 140, potassium 3.9, chloride 110, BUN 32, serum creatinine 2.0, hemoglobin 9.2 g/dL. ASSESSMENT: 1. Acute kidney injury secondary to colonic perforation, currently improved and the patient had some degree of hypovolemia as well. She is maintained on IV fluids which we will decrease. 2. Chronic kidney disease, NKF stage IIIB with baseline creatinine about 2 mg/dL. 3. Bowel perforation post colonoscopy, maintained on antibiotics. 4. Uncontrolled hypertension. Try and taper off the Cleviprex drip and add hydralazine along with the labetalol q.2-4 hours. 5. Uncontrolled pain. PLAN: Decrease IV fluids and add hydralazine. Try to wean off Cleviprex drip and repeat labs in a.m. MMODL / NICOLASAN: [id number] /
[2017-02-26 18:50] LABS: Basophils % (A) 0 %; Eosinophils # (A) 0.3 k/uL (0-0.7); Eosinophils % (A) 3 %; HCT 31.5 % (34.0-46.0); Lymphocytes # (A) 0.9 k/uL (1.0-4.8); Lymphocytes % (A) 7 %; MCH 28.8 pg (25.0-35.0); MCHC 31.9 g/dL (31.0-37.0); MCV 90.4 fL (80.0-100.0); Mean Platelet Volume 7.8; Monocytes # (A) 0.5 k/uL (0-1.0); Monocytes % (A) 4 %; Neutrophils # (A) 10.8 k/uL (1.3-7.7); Neutrophils % (A) 85 %; Platelet Count 255 k/uL (150-450); RBC 3.48 m/uL (3.80-5.40); RDW 14.9 % (11.5-15.5); WBC 12.7 k/uL (3.8-10.6)
[2017-02-26 18:58] LABS: INR 1.1 (<1.2); Prothrombin Time 10.3 sec (9.0-12.0)
[2017-02-27] MEDS: HEPARIN SODIUM,PORCINE 5,000 UNIT/ML 1 ML VIAL SQ SCH ×4 (00:27→23:27)
[2017-02-27] MEDS: ENALAPRILAT 1.25 MG/ML 1 ML VIAL IVP PRN (00:27)
[2017-02-27] MEDS: NITROGLYCERIN OINT 1 INCH/GM PACKET TOPICAL SCH ×5 (00:53→23:27)
[2017-02-27 05:05] LABS: Basophils % (A) 0 %; Eosinophils # (A) 0.4 k/uL (0-0.7); Eosinophils % (A) 4 %; HCT 28.2 % (34.0-46.0); HGB 8.7 gm/dL (11.4-16.0); Hypochromasia Slight; Lymphocytes # (A) 0.7 k/uL (1.0-4.8); Lymphocytes % (A) 7 %; MCH 28.7 pg (25.0-35.0); MCHC 30.8 g/dL (31.0-37.0); MCV 93.2 fL (80.0-100.0); Mean Platelet Volume 7.6; Monocytes # (A) 0.5 k/uL (0-1.0); Monocytes % (A) 5 %; Neutrophils # (A) 8.2 k/uL (1.3-7.7); Neutrophils % (A) 84 %; Platelet Count 229 k/uL (150-450); RBC 3.03 m/uL (3.80-5.40); RDW 15.2 % (11.5-15.5); WBC 9.9 k/uL (3.8-10.6)
[2017-02-27 05:52] LABS: Calcium 8.5 mg/dL (8.4-10.2); Magnesium 1.8 mg/dL (1.6-2.3); Phosphorus 3.1 mg/dL (2.5-4.5); Potassium 3.8 mmol/L (3.5-5.1)
[2017-02-27] MEDS: PIPERACILLIN-TAZOBACTAM 3.375 GM in DEXTROSE/WATER 1 50ML.BAG IVPB SCH ×2 (06:20→17:55)
[2017-02-27] MEDS: LABETALOL 5 MG/ML VIAL MDV IVP PRN (06:28)
[2017-02-27] MEDS: LACTATED RINGERS 1,000 ML IV SCH ×2 (06:31→23:28)
[2017-02-27] MEDS ORDERED: POTASSIUM CHLORIDE 20 MEQ, LIDOCAINE 2% INJ 20 MG in SODIUM CHLORIDE 0.9% 100 ML IVPB ONE (06:57)
[2017-02-27] MEDS ORDERED: MAGNESIUM SULFATE-D5W PMX 1 GM in DEXTROSE/WATER 1 100ML.BAG IVPB ONE (06:57)
--- NOTE | 2017-02-27 07:51 | P.PN ---
Subjective Progress Note Date: 02/27/17 his is a 76-year-old female who is postop day #4 status post exploratory laparotomy with repair of serosal tear and sigmoid colectomy for presumed perforation of the sigmoid colon in the area of the diverticulum. The patient' s exposure laparotomy did not reveal the actual perforation site to Dr. Crys Stevenson Ethan did resect the sigmoid colon which is where the patient had significant sigmoid diverticuli. The patient was having difficulty with his high blood pressure. She was started on Cleviprex at 4 mg an hour. The patient still has an NG tube in place. The patient has not had no output from the colostomy site. Other than that she's doing well. Minimal pain. Working on her incentive spirometer. No particular complaints at this time. On 02/27/2017, the patient is being seen for a follow-up. As mentioned earlier the patient is postop day #4. She is awake and alert. NG tube is in place and output is minimal at this point. There is adequate output in the colostomy site. The wound itself is clean. The patient has good bowel sounds. Hemoglobin dropped down to 8.7 without any signs of any bleeding. No fever. Currently on empiric antibiotic coverage with IV Zosyn. The creatinine is down to 2.0. No other electrodes abnormalities are seen. Blood pressure remains somewhat elevated and the clevidipine drip needs to be restarted 1 mg an hour. Artline is in place. No nausea. No change in mental status. No other significant events over the past 24 hours. Objective - Vital Signs Vital signs: Vital Signs Temp 97.7 F 02/27/17 04:00 Pulse 62 02/27/17 07:00 Resp 11 L 02/27/17 07:00 BP 156/69 02/27/17 07:00 Pulse Ox 95 02/27/17 07:00 Intake & Output 02/26/17 02/27/17 02/27/17 18:59 06:59 18:59 Intake Total 1289.7 880.5 75.5 Output Total 785 710 75 Balance 504.7 170.5 0.5 Weight 68.3 kg Intake: IV 1129.0 830.5 75.5 0.9NaCl for Pressure Bag 39 33 3 Lactated Ringers 1,000 ml 940 660 60 @ 60 mls/hr IV .[id number] [facility] Rx#:[id number] Piperacillin-Tazobactam 3 50.0 37.5 12.5 .375 gm In Dextrose/Water 1 50ml.bag @ 12.5 mls/hr IVPB Q12H [facility] Rx#: [id number] levETIRAcetam IV 500 mg 100 100 In Sodium Chloride 0.9% 100 ml @ 400 mls/hr IVPB Q12HR [facility] Rx#:[id number] Intake, IV Titration 60.7 Amount Clevidipine Butyrate 25 60.7 mg In Empty Bag 1 bag @ 1 MG/HR 2 mls/hr IV .Q24H [facility] Rx#:[id number] Oral 100 50 Output: Urine 785 710 75 Other: Voiding Method Indwelling Catheter Indwelling Catheter ABP, PAP, CO, CI - Last Documented Arterial Blood Pressure 165/61 - Exam No acute distress, oriented 3. HEENT examination is grossly unremarkable. Mucous membranes are moist. No oral lesions. NG tube in place. Neck supple. Full range of motion. No adenopathy thyromegaly or neck vein distention. Cardiovascular examination reveals regular rhythm rate. S1-S2 normal. No S3 or S4. No discernible murmur noted. Lungs reveal clear breath sounds. Her sounds are equal bilaterally. No adventitious lung sounds including wheezes rhonchi or crackles. Abdomen soft with bowel sounds. There is mild tenderness. The colostomy site is functional. There is adequate amount of output. His adequate bowel sounds. The wound itself is dry clean and intact. Extremities are intact. No cyanosis clubbing or edema. Skin is without rash or lesion. Neurologic examination is brief but nonfocal. - Labs CBC & Chem 7: 02/27/17 04:37 02/27/17 04:37 Labs: Abnormal Lab Results - Last 24 Hours (Table) 02/26/17 02/27/17 02/27/17 Range/Units 18:44 04:37 04:37 WBC 12.7 H (3.8-10.6) k/uL RBC 3.48 L 3.03 L (3.80-5.40) m/uL Hgb 10.0 L 8.7 L (11.4-16.0) gm/dL Hct 31.5 L 28.2 L (34.0-46.0) % MCHC 30.8 L (31.0-37.0) g/dL Neutrophils # 10.8 H 8.2 H (1.3-7.7) k/uL Lymphocytes # 0.9 L 0.7 L (1.0-4.8) k/uL Chloride 110 H (98-107) mmol/L BUN 33 H (7-17) mg/dL Creatinine 2.00 H (0.52-1.04) mg/dL Assessment and Plan Plan: 1. Perforation of sigmoid colon due to diverticulitis, status post surgical repair with colostomy, postop day #4 2. Acute diverticulitis 3. postop anemia, with interval drop in hemoglobin down to 8.7 4. CAD 5. Hypertension, currently off clevidipine and she is on clonidine transdermal patch and Vasotec 1.25 g every 4 hours on a when necessary basis for blood pressure control and labetalol 20 mg IV push every 2 hours on a when necessary basis. 6. Seizure disorder, currently on Keppra 7. Acute Acute failure [place] improving the creatinine is down to 2.0. No other significant electrode imbalance this point PLAN We will clamp the NG tube in preparation or in consideration for removal. Restart clevidipine drip at 1 mg an hour for a tighter blood pressure control. Monitor hemoglobin. No need for any blood transfusion. Continue IV Zosyn. Sit up the patient on a chair. Continues incentive spirometer. Monitor renal function. We'll continue to follow. General surgeries on the case.
[2017-02-27] MEDS: CLEVIDIPINE BUTYRATE 25 MG in EMPTY BAG 1 BAG IV SCH ×2 (08:32→19:45)
[2017-02-27] MEDS: MORPHINE SULFATE 5 MG/ML SYRINGE IV PRN ×3 (08:42→23:28)
--- NOTE | 2017-02-27 09:47 | P.PN ---
Subjective Progress Note Date: 02/27/17 Patient is status post exploratory laparotomy including descending colostomy creation by Dr. Cárdenas. She feels much better today. Her ostomy is working. She is on special medication for her blood pressure. She is enjoying her popsicles and ice chips. Objective - Vital Signs Vital signs: Vital Signs Temp 98.3 F 02/27/17 08:00 Pulse 67 02/27/17 08:30 Resp 20 02/27/17 08:30 BP 169/81 02/27/17 08:30 Pulse Ox 94 L 02/27/17 08:30 Intake & Output 02/26/17 02/27/17 02/27/17 18:59 06:59 18:59 Intake Total 1289.7 880.5 75.5 Output Total 785 710 150 Balance 504.7 170.5 -74.5 Weight 68.3 kg Intake: IV 1129.0 830.5 75.5 0.9NaCl for Pressure Bag 39 33 3 Lactated Ringers 1,000 ml 940 660 60 @ 60 mls/hr IV .[id number] [facility] Rx#:[id number] Piperacillin-Tazobactam 3 50.0 37.5 12.5 .375 gm In Dextrose/Water 1 50ml.bag @ 12.5 mls/hr IVPB Q12H [facility] Rx#: [id number] levETIRAcetam IV 500 mg 100 100 In Sodium Chloride 0.9% 100 ml @ 400 mls/hr IVPB Q12HR [facility] Rx#:[id number] Intake, IV Titration 60.7 Amount Clevidipine Butyrate 25 60.7 mg In Empty Bag 1 bag @ 1 MG/HR 2 mls/hr IV .Q24H [facility] Rx#:[id number] Oral 100 50 Output: Urine 785 710 150 Other: Voiding Method Indwelling Catheter Indwelling Catheter Indwelling Catheter ABP, PAP, CO, CI - Last Documented Arterial Blood Pressure 173/66 - Exam GENERAL: Well developed and in no acute distress. Pleasant. HEENT: No sclera icterus. Extraocular movements grossly intact. Dry buccal mucosa. Head is atraumatic, normocephalic. Hears conversational speech. No nasal drainage. Nasogastric present with bilious content. CHEST: Non-labored respirations and equal bilateral excursions. CARDIOVASCULAR: Regular rate and rhythm. Palpable 2+ radial pulses. ABDOMEN: Soft, Nondistended. Midline dressing with wound VAC clean dry and intact. Colostomy with flatus and stool. MUSCULOSKELETAL: No clubbing, cyanosis or edema. NEUROLOGIC: No focal or lateralizing signs. PSYCH: Appropriate affect. Alert and oriented to person, place and time. SKIN: Good skin turgor. Well perfused. - Labs CBC & Chem 7: 02/27/17 04:37 02/27/17 04:37 Labs: Abnormal Lab Results - Last 24 Hours (Table) 02/26/17 02/27/17 02/27/17 Range/Units 18:44 04:37 04:37 WBC 12.7 H (3.8-10.6) k/uL RBC 3.48 L 3.03 L (3.80-5.40) m/uL Hgb 10.0 L 8.7 L (11.4-16.0) gm/dL Hct 31.5 L 28.2 L (34.0-46.0) % MCHC 30.8 L (31.0-37.0) g/dL Neutrophils # 10.8 H 8.2 H (1.3-7.7) k/uL Lymphocytes # 0.9 L 0.7 L (1.0-4.8) k/uL Chloride 110 H (98-107) mmol/L BUN 33 H (7-17) mg/dL Creatinine 2.00 H (0.52-1.04) mg/dL Assessment and Plan (1) Status post colostomy Current Visit: Yes Status: Acute Code(s): Z93.3 - COLOSTOMY STATUS SNOMED Code(s): 559438634 (2) ARF (acute renal failure) Current Visit: Yes Status: Acute Code(s): N17.9 - ACUTE KIDNEY FAILURE, UNSPECIFIED SNOMED Code(s): 15170283 (3) Perforation of sigmoid colon due to diverticulitis Current Visit: Yes Status: Acute Code(s): K57.20 - DVTRCLI OF LG INT W PERFORATION AND ABSCESS W/O BLEEDING SNOMED Code(s): 7939140399374189 Plan: 1. Continue ice chips and popsicles. 2. DC NG tube. I am rounding on behalf of Dr. Graham Long.
[2017-02-27] MEDS: levETIRAcetam IV 500 MG in SODIUM CHLORIDE 0.9% 100 ML IVPB SCH ×2 (10:33→21:09)
[2017-02-27] MEDS: PANTOPRAZOLE 40 MG/10 ML VIAL IV SCH (10:33)
--- NOTE | 2017-02-27 15:16 | PN ---
PROGRESS NOTE Patient is seen for followup for chronic kidney disease and uncontrolled hypertension. Yesterday, her Cleviprex drip was discontinued, but slowly her blood pressure continued to be uncontrolled and was not controlled with p.r.n. medications. Therefore, the drip was restarted and plan is to start oral medications, most likely tomorrow when the drip will be weaned off again. PHYSICAL EXAMINATION: Currently patient is comfortable, awake. She denies significant abdominal pain. Blood pressure is 126/62, heart rate is 72 per minute. She is afebrile. Examination of the heart, S1, S2. Examination of the lungs, bilateral breath sounds are heard. Abdomen is soft. There is tenderness noted. Incision is dressed and ileostomy is noted. Examination of the lower extremities does not show any significant edema. PUTTER IN exam is grossly intact. LABS: Reveal sodium 141, potassium 3.8, chloride 110, BUN 33, serum creatinine 2.0, hemoglobin 8.7 g/dL. ASSESSMENT: 1. Chronic kidney disease with stable renal function and GAF stage IV. 2. Colonic perforation, post colonoscopy, status post explorative laparotomy and descending colostomy. 3. Acute kidney injury secondary to colon perforation, currently improved. 4. Uncontrolled hypertension. Back on Cleviprex drip and we will wean this off tomorrow when patient is taking oral medications, which are expected to start tomorrow. MMODL / IJN: [id number] /
[2017-02-27 16:03] LABS: Basophils % (A) 0 %; Eosinophils # (A) 0.4 k/uL (0-0.7); Eosinophils % (A) 4 %; HCT 28.7 % (34.0-46.0); HGB 9.3 gm/dL (11.4-16.0); Lymphocytes # (A) 0.5 k/uL (1.0-4.8); Lymphocytes % (A) 6 %; MCH 29.2 pg (25.0-35.0); MCHC 32.5 g/dL (31.0-37.0); MCV 89.9 fL (80.0-100.0); Mean Platelet Volume 8.9; Monocytes # (A) 0.5 k/uL (0-1.0); Monocytes % (A) 5 %; Neutrophils # (A) 7.1 k/uL (1.3-7.7); Neutrophils % (A) 83 %; Platelet Count 210 k/uL (150-450); RBC 3.19 m/uL (3.80-5.40); RDW 14.9 % (11.5-15.5); WBC 8.5 k/uL (3.8-10.6)
--- NOTE | 2017-02-27 17:08 | P.PN ---
Subjective Progress Note Date: 02/27/17 Progress note being dictated for Dr. Fuller. Interval history: This is a 76-year-old female admitted with perforation sigmoid colon secondary to diverticulitis status post exploratory laparotomy with resection, descending colostomy. Maintained on IV fluid hydration, renal function improving, WBC improving. Afebrile. Telemetry sinus rhythm. Labile blood pressure, Systolic blood pressures ranging 140s to 160s, maintained on Clevidipine. No flatus, no stool from colostomy. Tolerating ice chips with no nausea or vomiting Hemoglobin 9.2. Pain controlled. 02/27/17 continues to do well. Colostomy with flatus and stool. Hypertensive on Clevidipine drip. NG tube has been discontinued. Tolerating ice chips and popsicles with no nausea or vomiting. Pain controlled. Maintained on Zosyn .Afebrile, normal WBC. Creatinine remains at 2. Objective - Vital Signs Vital signs: Vital Signs Temp 98.3 F 02/27/17 16:00 Pulse 63 02/27/17 16:00 Resp 13 02/27/17 16:00 BP 158/79 02/27/17 16:00 Pulse Ox 95 02/27/17 16:00 Intake & Output 02/26/17 02/27/17 02/27/17 18:59 06:59 18:59 Intake Total 1289.7 880.5 706.234 Output Total 785 710 770 Balance 504.7 170.5 -63.766 Weight 68.3 kg 68.3 kg Intake: IV 1129.0 830.5 680.0 0.9NaCl for Pressure Bag 39 33 30 Lactated Ringers 1,000 ml 940 660 600 @ 60 mls/hr IV .[id number] [facility] Rx#:[id number] Piperacillin-Tazobactam 3 50.0 37.5 50.0 .375 gm In Dextrose/Water 1 50ml.bag @ 12.5 mls/hr IVPB Q12H [facility] Rx#: [id number] levETIRAcetam IV 500 mg 100 100 In Sodium Chloride 0.9% 100 ml @ 400 mls/hr IVPB Q12HR [facility] Rx#:[id number] Intake, IV Titration 60.7 26.234 Amount Clevidipine Butyrate 25 60.7 mg In Empty Bag 1 bag @ 1 MG/HR 2 mls/hr IV .Q24H [facility] Rx#:[id number] Clevidipine Butyrate 25 26.234 mg In Empty Bag 1 bag @ 1 MG/HR 2 mls/hr IV .Q24H [facility] Rx#:[id number] Oral 100 50 Output: Urine 785 710 770 Other: Voiding Method Indwelling Catheter Indwelling Catheter Indwelling Catheter ABP, PAP, CO, CI - Last Documented Arterial Blood Pressure 179/66 - Exam PHYSICAL EXAM: VITAL SIGNS: As above GENERAL: Sitting up in bed, no acute distress HEENT: Conjunctivae normal. eyes normal. NECK: No JVD. No thyroid enlargement. No LNs CARDIOVASCULAR: S1, S2 muffled. No murmur RESPIRATION: Breath sounds diminished in the bases. No rhonchi or crackles. No bronchial breathing. ABDOMEN: Soft, S/P surgery. Colostomy present with stool. LEGS: No edema. no swelling PSYCHIATRY: Alert and oriented -3, mood and affect normal. NERVOUS SYSTEM: Cranial N 2-12 grossly normal. Moves all 4 limbs. Diffuse weakness No focal deficits. No sensory deficit. Skin: no ulcer no rash Joints: No active swelling. No inflammation. Lymphatic system. No LN neck axilla or groin. - Labs CBC & Chem 7: 02/27/17 15:55 02/27/17 04:37 Labs: Abnormal Lab Results - Last 24 Hours (Table) 02/26/17 02/27/17 02/27/17 Range/Units 18:44 04:37 04:37 WBC 12.7 H (3.8-10.6) k/uL RBC 3.48 L 3.03 L (3.80-5.40) m/uL Hgb 10.0 L 8.7 L (11.4-16.0) gm/dL Hct 31.5 L 28.2 L (34.0-46.0) % MCHC 30.8 L (31.0-37.0) g/dL Neutrophils # 10.8 H 8.2 H (1.3-7.7) k/uL Lymphocytes # 0.9 L 0.7 L (1.0-4.8) k/uL Chloride 110 H (98-107) mmol/L BUN 33 H (7-17) mg/dL Creatinine 2.00 H (0.52-1.04) mg/dL 02/27/17 Range/Units 15:55 WBC (3.8-10.6) k/uL RBC 3.19 L (3.80-5.40) m/uL Hgb 9.3 L (11.4-16.0) gm/dL Hct 28.7 L (34.0-46.0) % MCHC (31.0-37.0) g/dL Neutrophils # (1.3-7.7) k/uL Lymphocytes # 0.5 L (1.0-4.8) k/uL Chloride (98-107) mmol/L BUN (7-17) mg/dL Creatinine (0.52-1.04) mg/dL Assessment and Plan Assessment: 1. Perforation of sigmoid colon due to diverticulitis, status post surgical repair with colostomy 2. Acute diverticulitis 3. Severe postop anemia 4. CAD 5. Hypertension 6. Seizure disorder 7. Acute Acute failure Plan: Continue on current medication regime , CLevidipine, monitoring and symptomatic treatment. Gentle IV fluid hydration. Aggressive pulmonary toileting. Pain management/diet advancement as per surgery. Further recommendations to follow. The impression and plan of care has been dictated as directed. : I performed a history and examination of this patient, discussed the same with the dictator. I agree with the dictator's note ,documented as a scribe. Any additional findings or plans will be noted.
[2017-02-28] MEDS: CLEVIDIPINE BUTYRATE 25 MG in EMPTY BAG 1 BAG IV SCH ×2 (02:54→09:35)
[2017-02-28 05:04] LABS: Basophils % (A) 0 %; Eosinophils # (A) 0.3 k/uL (0-0.7); Eosinophils % (A) 5 %; HCT 29.4 % (34.0-46.0); HGB 9.1 gm/dL (11.4-16.0); Lymphocytes # (A) 0.3 k/uL (1.0-4.8); Lymphocytes % (A) 4 %; MCH 28.5 pg (25.0-35.0); MCHC 30.8 g/dL (31.0-37.0); MCV 92.7 fL (80.0-100.0); Mean Platelet Volume 8.3; Monocytes # (A) 0.3 k/uL (0-1.0); Monocytes % (A) 5 %; Neutrophils # (A) 5.7 k/uL (1.3-7.7); Neutrophils % (A) 85 %; Platelet Count 200 k/uL (150-450); RBC 3.18 m/uL (3.80-5.40); RDW 15.1 % (11.5-15.5); WBC 6.7 k/uL (3.8-10.6)
[2017-02-28 05:18] LABS: Calcium 8.3 mg/dL (8.4-10.2); Magnesium 1.9 mg/dL (1.6-2.3); Phosphorus 2.5 mg/dL (2.5-4.5); Potassium 3.6 mmol/L (3.5-5.1)
[2017-02-28] MEDS: NITROGLYCERIN OINT 1 INCH/GM PACKET TOPICAL SCH ×3 (05:57→17:55)
[2017-02-28] MEDS: PIPERACILLIN-TAZOBACTAM 3.375 GM in DEXTROSE/WATER 1 50ML.BAG IVPB SCH ×2 (05:57→17:55)
[2017-02-28] MEDS: POTASSIUM CHLORIDE 20 MEQ, LIDOCAINE 2% INJ 20 MG in SODIUM CHLORIDE 0.9% 100 ML IVPB SCH ×2 (07:08→10:46)
[2017-02-28] MEDS: MORPHINE SULFATE 5 MG/ML SYRINGE IV PRN ×3 (07:48→21:16)
[2017-02-28] MEDS: PANTOPRAZOLE 40 MG/10 ML VIAL IV SCH (08:26)
[2017-02-28] MEDS: HEPARIN SODIUM,PORCINE 5,000 UNIT/ML 1 ML VIAL SQ SCH ×2 (08:26→16:48)
[2017-02-28] MEDS: levETIRAcetam IV 500 MG in SODIUM CHLORIDE 0.9% 100 ML IVPB SCH ×2 (10:16→21:06)
--- NOTE | 2017-02-28 11:34 | P.PN ---
<Chloé Turcios - Last Filed: 02/28/17 11:12> Subjective Progress Note Date: 02/28/17 76-year-old female seen and examined in the intensive care unit. Patient is postop exploratory laparotomy with descending colostomy creation done by Dr. Kat on the 23 of February for a probable diverticular perforation. Sitting up in bed oriented 3 ostomy functioning hypoactive bowel tones noted tolerating ice chips and popsicles [employer] managing ICU care medicine addressing antihypertensive meds in attempt to optimize the pressure control Objective - Vital Signs Vital signs: Vital Signs Temp 97.7 F 02/28/17 08:00 Pulse 60 02/28/17 11:00 Resp 16 02/28/17 11:00 BP 147/67 02/28/17 11:00 Pulse Ox 94 L 02/28/17 11:00 Intake & Output 02/27/17 02/28/17 02/28/17 18:59 06:59 18:59 Intake Total 856.834 946.867 396.767 Output Total 890 695 315 Balance -33.166 251.867 81.767 Weight 68.3 kg 71.4 kg Intake: IV 818.5 906.0 352.5 0.9NaCl for Pressure Bag 36 36 15 Lactated Ringers 1,000 ml 720 720 300 @ 60 mls/hr IV .[id number] [facility] Rx#:[id number] Piperacillin-Tazobactam 3 62.5 50.0 37.5 .375 gm In Dextrose/Water 1 50ml.bag @ 12.5 mls/hr IVPB Q12H [facility] Rx#: [id number] levETIRAcetam IV 500 mg 100 In Sodium Chloride 0.9% 100 ml @ 400 mls/hr IVPB Q12HR [facility] Rx#:[id number] Intake, IV Titration 38.334 40.867 44.267 Amount Clevidipine Butyrate 25 38.334 40.867 44.267 mg In Empty Bag 1 bag @ 1 MG/HR 2 mls/hr IV .Q24H [facility] Rx#:[id number] Output: Urine 890 695 315 Other: Voiding Method Indwelling Catheter Indwelling Catheter Indwelling Catheter ABP, PAP, CO, CI - Last Documented Arterial Blood Pressure 163/83 - Exam Physical exam 76-year-old female sitting up in bed appears in no acute distress Lungs diminished at the bases otherwise adequate air movement on room air sats are 93% no cough noted Heart S1-S2 audible and regular Abdomen ostomy small amount of liquid stool noted wound VAC in place dressing midline clean and dry soft not distended surgical tenderness appropriate indwelling Almendarez catheter in place tolerating popsicles and clear liquids no reports of nausea vomiting Extremities Venodyne's on to the bilateral lower extremities no edema - Labs CBC & Chem 7: 02/28/17 04:46 02/28/17 04:46 Labs: Abnormal Lab Results - Last 24 Hours (Table) 02/27/17 02/28/17 02/28/17 Range/Units 15:55 04:46 04:46 RBC 3.19 L 3.18 L (3.80-5.40) m/uL Hgb 9.3 L 9.1 L (11.4-16.0) gm/dL Hct 28.7 L 29.4 L (34.0-46.0) % MCHC 30.8 L (31.0-37.0) g/dL Lymphocytes # 0.5 L 0.3 L (1.0-4.8) k/uL Chloride 108 H (98-107) mmol/L BUN 29 H (7-17) mg/dL Creatinine 1.80 H (0.52-1.04) mg/dL Calcium 8.3 L (8.4-10.2) mg/dL Assessment and Plan Assessment: Impression Present on admission acute abdominal pain likely due to a diverticular perforation with free air Postop February 23 exploratory laparotomy, extensive lysis of adhesions, repair serosal tear in the cecum, sigmoid resection and sigmoid colostomy Present on admission acute renal failure likely due to colonic perforation improving Chronic kidney disease stage IIIB Perforation of the sigmoid colon due to diverticulitis Bowel perforation post colonoscopy Hypertension urgency Leukocytosis improving History of a seizure disorder prior CVA by history Severe postop anemia Plan Continue postop surgical care Defer to medicine service for medical issues Pain control IV antibiotics Zosyn as ordered Pain control Potassium to be replaced per protocol Repeat labs in the morning DVT and GI prophylaxis The above impression and plan of care have been discussed and directed by signing physician. Chloé Turcios nurse practitioner acting as scribe for signing physician. Dr. Karimi rounding on Dr. Kat <Angelica Karimi N - Last Filed: 02/28/17 20:22> Objective - Vital Signs Vital signs: Vital Signs Temp 97.5 F L 02/28/17 16:00 Pulse 53 L 02/28/17 19:00 Resp 16 02/28/17 19:00 BP 182/89 02/28/17 19:00 Pulse Ox 97 02/28/17 19:00 Intake & Output 02/28/17 02/28/17 03/01/17 06:59 18:59 06:59 Intake Total 946.867 837.767 75.5 Output Total 695 770 50 Balance 251.867 67.767 25.5 Weight 71.4 kg Intake: IV 906.0 793.5 75.5 0.9NaCl for Pressure Bag 36 36 3 Lactated Ringers 1,000 ml 720 720 60 @ 60 mls/hr IV .[id number] [facility] Rx#:[id number] Piperacillin-Tazobactam 3 50.0 37.5 12.5 .375 gm In Dextrose/Water 1 50ml.bag @ 12.5 mls/hr IVPB Q12H [facility] Rx#: [id number] levETIRAcetam IV 500 mg 100 In Sodium Chloride 0.9% 100 ml @ 400 mls/hr IVPB Q12HR [facility] Rx#:[id number] Intake, IV Titration 40.867 44.267 Amount Clevidipine Butyrate 25 40.867 44.267 mg In Empty Bag 1 bag @ 1 MG/HR 2 mls/hr IV .Q24H [facility] Rx#:[id number] Output: Urine 695 770 50 Other: Voiding Method Indwelling Catheter Indwelling Catheter ABP, PAP, CO, CI - Last Documented Arterial Blood Pressure 136/120 - Exam GENERAL: Well developed and in no acute distress. Pleasant. HEENT: No sclera icterus. Extraocular movements grossly intact. Moist buccal mucosa. Head is atraumatic, normocephalic. Hears conversational speech. No nasal drainage. CHEST: Non-labored respirations and equal bilateral excursions. CARDIOVASCULAR: Regular rate and rhythm. Palpable 2+ radial pulses. ABDOMEN: Soft, nontender. Nondistended. Wound VAC dressing intact. No signs of cell in his infection. Ostomy pink patent functioning stool. MUSCULOSKELETAL: No clubbing, cyanosis or edema. NEUROLOGIC: No focal or lateralizing signs. PSYCH: Appropriate affect. Alert and oriented to person, place and time. SKIN: Good skin turgor. Well perfused. - Labs CBC & Chem 7: 02/28/17 04:46 02/28/17 04:46 Labs: Abnormal Lab Results - Last 24 Hours (Table) 02/28/17 02/28/17 Range/Units 04:46 04:46 RBC 3.18 L (3.80-5.40) m/uL Hgb 9.1 L (11.4-16.0) gm/dL Hct 29.4 L (34.0-46.0) % MCHC 30.8 L (31.0-37.0) g/dL Lymphocytes # 0.3 L (1.0-4.8) k/uL Chloride 108 H (98-107) mmol/L BUN 29 H (7-17) mg/dL Creatinine 1.80 H (0.52-1.04) mg/dL Calcium 8.3 L (8.4-10.2) mg/dL Assessment and Plan (1) Status post colostomy Current Visit: Yes Status: Acute Code(s): Z93.3 - COLOSTOMY STATUS SNOMED Code(s): 906138225 (2) ARF (acute renal failure) Current Visit: Yes Status: Acute Code(s): N17.9 - ACUTE KIDNEY FAILURE, UNSPECIFIED SNOMED Code(s): 32881625 (3) Perforation of sigmoid colon due to diverticulitis Current Visit: Yes Status: Acute Code(s): K57.20 - DVTRCLI OF LG INT W PERFORATION AND ABSCESS W/O BLEEDING SNOMED Code(s): 7211848903425346 Plan: 1. May advance diet to full liquid. 2. Midline dressing to be changed this or Sunday. 3. Patient may be transferred to floor once medically stable.
[2017-02-28] MEDS: NIFEdipine XL 90 MG TAB.ER.24 PO SCH (15:45)
[2017-02-28] MEDS: cloNIDine HCL 0.2 MG TAB PO SCH (15:45)
--- NOTE | 2017-02-28 16:06 | P.PN ---
Subjective Progress Note Date: 02/28/17 his is a 76-year-old female who is postop day #4 status post exploratory laparotomy with repair of serosal tear and sigmoid colectomy for presumed perforation of the sigmoid colon in the area of the diverticulum. The patient' s exposure laparotomy did not reveal the actual perforation site to Dr. Crys Stevenson Ethan did resect the sigmoid colon which is where the patient had significant sigmoid diverticuli. The patient was having difficulty with his high blood pressure. She was started on Cleviprex at 4 mg an hour. The patient still has an NG tube in place. The patient has not had no output from the colostomy site. Other than that she's doing well. Minimal pain. Working on her incentive spirometer. No particular complaints at this time. On 02/27/2017, the patient is being seen for a follow-up. As mentioned earlier the patient is postop day #4. She is awake and alert. NG tube is in place and output is minimal at this point. There is adequate output in the colostomy site. The wound itself is clean. The patient has good bowel sounds. Hemoglobin dropped down to 8.7 without any signs of any bleeding. No fever. Currently on empiric antibiotic coverage with IV Zosyn. The creatinine is down to 2.0. No other electrodes abnormalities are seen. Blood pressure remains somewhat elevated and the clevidipine drip needs to be restarted 1 mg an hour. Artline is in place. No nausea. No change in mental status. No other significant events over the past 24 hours. On 02/28/2017 the patient is being seen in follow-up. The patient is postop day #5. The patient is alert and awake. She is concerned that she is not improving. Contrary to her concerns, I think the patient is improving. The NG tube Clamped yesterday and subsequently it got discontinued. Her colostomy site dysfunctional. Her abdominal wound is clean and intact. The patient is hemodynamically stable. In fact that she is hypertensive and she has required clevidipine drip which is still running at 1 mg an hour. I'm going to start on oral medication for blood pressure control and hopefully should be enough to gradually wean her off the IV antihypertensive medication. She has no nausea. No vomiting no fever or chills. No other significant events overnight. No confusion. Altered mentation. She remains on IV Zosyn. The patient is also being followed up by the surgical team in the intensive care units. Objective - Vital Signs Vital signs: Vital Signs Temp 97.5 F L 02/28/17 12:00 Pulse 76 02/28/17 15:00 Resp 16 02/28/17 15:42 BP 156/73 02/28/17 15:00 Pulse Ox 92 L 02/28/17 15:00 Intake & Output 02/27/17 02/28/17 02/28/17 18:59 06:59 18:59 Intake Total 856.834 946.867 648.767 Output Total 890 695 530 Balance -33.166 251.867 118.767 Weight 68.3 kg 71.4 kg Intake: IV 818.5 906.0 604.5 0.9NaCl for Pressure Bag 36 36 27 Lactated Ringers 1,000 ml 720 720 540 @ 60 mls/hr IV .[id number] [facility] Rx#:[id number] Piperacillin-Tazobactam 3 62.5 50.0 37.5 .375 gm In Dextrose/Water 1 50ml.bag @ 12.5 mls/hr IVPB Q12H [facility] Rx#: [id number] levETIRAcetam IV 500 mg 100 In Sodium Chloride 0.9% 100 ml @ 400 mls/hr IVPB Q12HR [facility] Rx#:[id number] Intake, IV Titration 38.334 40.867 44.267 Amount Clevidipine Butyrate 25 38.334 40.867 44.267 mg In Empty Bag 1 bag @ 1 MG/HR 2 mls/hr IV .Q24H [facility] Rx#:[id number] Output: Urine 890 695 530 Other: Voiding Method Indwelling Catheter Indwelling Catheter Indwelling Catheter ABP, PAP, CO, CI - Last Documented Arterial Blood Pressure 115/94 - Exam No acute distress, oriented 3. HEENT examination is grossly unremarkable. Mucous membranes are moist. No oral lesions. NG tube has been removed for now. Neck supple. Full range of motion. No adenopathy thyromegaly or neck vein distention. Cardiovascular examination reveals regular rhythm rate. S1-S2 normal. No S3 or S4. No discernible murmur noted. Lungs reveal clear breath sounds. Her sounds are equal bilaterally. No adventitious lung sounds including wheezes rhonchi or crackles. Abdomen soft with bowel sounds. There is mild tenderness. The colostomy site is functional. There is adequate amount of output. His adequate bowel sounds. The wound itself is dry clean and intact. Extremities are intact. No cyanosis clubbing or edema. Skin is without rash or lesion. Neurologic examination is brief but nonfocal. - Labs CBC & Chem 7: 02/28/17 04:46 02/28/17 04:46 Labs: Abnormal Lab Results - Last 24 Hours (Table) 02/27/17 02/28/17 02/28/17 Range/Units 15:55 04:46 04:46 RBC 3.19 L 3.18 L (3.80-5.40) m/uL Hgb 9.3 L 9.1 L (11.4-16.0) gm/dL Hct 28.7 L 29.4 L (34.0-46.0) % MCHC 30.8 L (31.0-37.0) g/dL Lymphocytes # 0.5 L 0.3 L (1.0-4.8) k/uL Chloride 108 H (98-107) mmol/L BUN 29 H (7-17) mg/dL Creatinine 1.80 H (0.52-1.04) mg/dL Calcium 8.3 L (8.4-10.2) mg/dL Assessment and Plan Plan: 1. Perforation of sigmoid colon due to diverticulitis, status post surgical repair with colostomy, postop day #5 2. Acute diverticulitis 3. postop anemia, with interval drop in hemoglobin down to 9.1 4. CAD 5. Hypertension, currently off clevidipine and she is on clonidine transdermal patch and Vasotec 1.25 g every 4 hours on a when necessary basis for blood pressure control and labetalol 20 mg IV push every 2 hours on a when necessary basis. 6. Seizure disorder, currently on Keppra 7. Acute Acute failure MO improving the creatinine is down to 1.8. No other significant electrode imbalance this point PLAN The patient needs to be more active. She will need to sit up on a chair. Use incentive spirometer. NG tube has been removed and we'll get a clearance from surgery to advance her diet. We'll start the patient on oral antihypertensive medication. Would suggest starting the patient on oral clonidine and oral Procardia and wean off the clevidipine drip. Continue IV Zosyn. Monitor electrolytes. Monitor renal function. Keep the patient ICU for another 24 hours. She was reassured.
--- NOTE | 2017-02-28 16:20 | PN ---
PROGRESS NOTE Patient is seen for followup for chronic kidney disease. Her renal function has been very stable. The patient is currently maintained on Cleviprex drip because of uncontrolled hypertension, as she is not able to take her home anti-hypertensive medications because of her surgery. The plan is to hopefully start oral medications today and wean down the Cleviprex drip and patient could be transferred out of the unit. PHYSICAL EXAMINATION: Patient is comfortable, awake. She is not in any acute distress. Blood pressure is 156/73, heart rate 76 per minute. Patient is afebrile. EXAMINATION OF THE HEART: S1, S2. EXAMINATION OF LUNGS: Bilateral breath sounds are heard. Decreased breath sounds at the bases. ABDOMEN: Tender. Currently dressed. Patient has output from her colostomy. Examination of lower extremities shows no evidence of edema. LABS: Sodium 139, potassium 3.6, BUN 29, serum creatinine 1.8, hemoglobin 9.1 g/dL. ASSESSMENT: 1. Acute kidney injury, mainly prerenal, currently resolved. 2. Chronic kidney disease, NKF stage III3B to 4 with renal function currently stable. 3. Uncontrolled hypertension. Expect improvement once oral medications are started and we will wean off the Cleviprex drip. 4. Colonic perforation post colonoscopy, status post explorative laparotomy, colon resection and descending colostomy. PLAN: No changes for now. Start oral medications once cleared by Surgery. MMODL / IJN: [id number] /
[2017-02-28] MEDS ORDERED: CARVEDILOL 6.25 MG TAB PO SCH (17:30)
[2017-02-28] MEDS: hydrALAZINE HCL 20 MG/ML 1 ML VIAL IVP PRN ×2 (18:56→21:14)
--- NOTE | 2017-02-28 19:03 | P.PN ---
Subjective Progress Note Date: 02/28/17 Progress note being dictated for Dr. Pantoja Interval history: This is a 76-year-old female admitted with perforation sigmoid colon secondary to diverticulitis status post exploratory laparotomy with resection, descending colostomy. Maintained on IV fluid hydration, renal function improving, WBC improving. Afebrile. Telemetry sinus rhythm. Labile blood pressure, Systolic blood pressures ranging 140s to 160s, maintained on Clevidipine. No flatus, no stool from colostomy. Tolerating ice chips with no nausea or vomiting Hemoglobin 9.2. Pain controlled. 02/27/17 continues to do well. Colostomy with flatus and stool. Hypertensive on Clevidipine drip. NG tube has been discontinued. Tolerating ice chips and popsicles with no nausea or vomiting. Pain controlled. Maintained on Zosyn .Afebrile, normal WBC. Creatinine remains at 2. 02/28/17 Maintained on Zosyn. continues to do well, tolerating ice chips and popsicles. No nausea, no vomiting. Colostomy functioning. Hypertensive, Maintained on clevidipine drip. Denies chest pain, palpitations or shortness of breath. Afebrile. Objective - Vital Signs Vital signs: Vital Signs Temp 97.5 F L 02/28/17 16:00 Pulse 54 L 02/28/17 17:00 Resp 16 02/28/17 17:00 BP 172/87 02/28/17 17:00 Pulse Ox 97 02/28/17 17:00 Intake & Output 02/27/17 02/28/17 02/28/17 18:59 06:59 18:59 Intake Total 856.834 946.867 774.767 Output Total 890 695 695 Balance -33.166 251.867 79.767 Weight 68.3 kg 71.4 kg Intake: IV 818.5 906.0 730.5 0.9NaCl for Pressure Bag 36 36 33 Lactated Ringers 1,000 ml 720 720 660 @ 60 mls/hr IV .[id number] [facility] Rx#:[id number] Piperacillin-Tazobactam 3 62.5 50.0 37.5 .375 gm In Dextrose/Water 1 50ml.bag @ 12.5 mls/hr IVPB Q12H [facility] Rx#: [id number] levETIRAcetam IV 500 mg 100 In Sodium Chloride 0.9% 100 ml @ 400 mls/hr IVPB Q12HR [facility] Rx#:[id number] Intake, IV Titration 38.334 40.867 44.267 Amount Clevidipine Butyrate 25 38.334 40.867 44.267 mg In Empty Bag 1 bag @ 1 MG/HR 2 mls/hr IV .Q24H [facility] Rx#:[id number] Output: Urine 890 695 695 Other: Voiding Method Indwelling Catheter Indwelling Catheter Indwelling Catheter ABP, PAP, CO, CI - Last Documented Arterial Blood Pressure 142/112 - Exam PHYSICAL EXAM: VITAL SIGNS: As above GENERAL: Sitting up in bed, no acute distress HEENT: Conjunctivae normal. eyes normal. NECK: No JVD. No thyroid enlargement. No LNs CARDIOVASCULAR: S1, S2 muffled. No murmur RESPIRATION: Breath sounds diminished in the bases. No rhonchi or crackles. No bronchial breathing. ABDOMEN: Soft, S/P surgery. Colostomy present with small liquid stool. Hypoactive bowel sounds LEGS: No edema. no swelling PSYCHIATRY: Alert and oriented -3, mood and affect normal. NERVOUS SYSTEM: Cranial N 2-12 grossly normal. Moves all 4 limbs. Diffuse weakness No focal deficits. No sensory deficit. Skin: no ulcer no rash Joints: No active swelling. No inflammation. Lymphatic system. No LN neck axilla or groin. - Labs CBC & Chem 7: 02/28/17 04:46 02/28/17 04:46 Labs: Abnormal Lab Results - Last 24 Hours (Table) 02/28/17 02/28/17 Range/Units 04:46 04:46 RBC 3.18 L (3.80-5.40) m/uL Hgb 9.1 L (11.4-16.0) gm/dL Hct 29.4 L (34.0-46.0) % MCHC 30.8 L (31.0-37.0) g/dL Lymphocytes # 0.3 L (1.0-4.8) k/uL Chloride 108 H (98-107) mmol/L BUN 29 H (7-17) mg/dL Creatinine 1.80 H (0.52-1.04) mg/dL Calcium 8.3 L (8.4-10.2) mg/dL Assessment and Plan Assessment: 1. Perforation of sigmoid colon due to diverticulitis, status post surgical repair with colostomy 2. Acute diverticulitis 3. Severe postop anemia 4. CAD 5. Hypertension 6. Seizure disorder 7. Acute Acute failure Plan: Continue on current medication regime , CLevidipine, monitoring and symptomatic treatment. Gentle IV fluid hydration. Aggressive pulmonary toileting. Up in chair for meals. PT/OT. Pain management/diet advancement as per surgery. Awaiting clearance to begin oral antihypertensives per surgery, and begin weaning off clevidipine. Further recommendations to follow. The impression and plan of care has been dictated as directed. : I performed a history and examination of this patient, discussed the same with the dictator. I agree with the dictator's note ,documented as a scribe. Any additional findings or plans will be noted.
[2017-02-28] MEDS: LACTATED RINGERS 1,000 ML IV SCH (21:06)
[2017-03-01] MEDS: NITROGLYCERIN OINT 1 INCH/GM PACKET TOPICAL SCH ×5 (00:24→23:56)
[2017-03-01] MEDS: HEPARIN SODIUM,PORCINE 5,000 UNIT/ML 1 ML VIAL SQ SCH ×4 (00:24→23:56)
[2017-03-01] MEDS: PIPERACILLIN-TAZOBACTAM 3.375 GM in DEXTROSE/WATER 1 50ML.BAG IVPB SCH ×4 (01:21→23:57)
[2017-03-01 05:35] LABS: Basophils % (A) 0 %; Eosinophils # (A) 0.3 k/uL (0-0.7); Eosinophils % (A) 7 %; HCT 26.7 % (34.0-46.0); HGB 8.6 gm/dL (11.4-16.0); Lymphocytes # (A) 0.4 k/uL (1.0-4.8); Lymphocytes % (A) 9 %; MCH 29.1 pg (25.0-35.0); MCHC 32.2 g/dL (31.0-37.0); MCV 90.1 fL (80.0-100.0); Mean Platelet Volume 7.4; Monocytes # (A) 0.3 k/uL (0-1.0); Monocytes % (A) 7 %; Neutrophils # (A) 3.5 k/uL (1.3-7.7); Neutrophils % (A) 76 %; Platelet Count 180 k/uL (150-450); RBC 2.96 m/uL (3.80-5.40); RDW 14.6 % (11.5-15.5); WBC 4.7 k/uL (3.8-10.6)
[2017-03-01 05:39] LABS: Calcium 8.2 mg/dL (8.4-10.2); Magnesium 1.8 mg/dL (1.6-2.3); Phosphorus 2.2 mg/dL (2.5-4.5); Potassium 4.3 mmol/L (3.5-5.1)
[2017-03-01] MEDS: LEVOTHYROXINE 125 MCG TAB PO SCH (06:25)
[2017-03-01] MEDS: MORPHINE SULFATE 5 MG/ML SYRINGE IV PRN ×3 (06:25→23:18)
[2017-03-01] MEDS: LACTATED RINGERS 1,000 ML IV SCH (06:26)
[2017-03-01] MEDS: PANTOPRAZOLE 40 MG/10 ML VIAL IV SCH (08:11)
[2017-03-01] MEDS: levETIRAcetam IV 500 MG in SODIUM CHLORIDE 0.9% 100 ML IVPB SCH ×2 (08:11→20:45)
[2017-03-01] MEDS: NIFEdipine XL 90 MG TAB.ER.24 PO SCH ×2 (08:39→10:25)
[2017-03-01] MEDS: cloNIDine HCL 0.2 MG TAB PO SCH ×2 (08:39→10:24)
[2017-03-01] MEDS: SERTRALINE 25 MG TAB PO SCH (08:39)
[2017-03-01] MEDS: MAGNESIUM SULFATE-D5W PMX 1 GM in DEXTROSE/WATER 1 100ML.BAG IVPB SCH ×2 (10:44→11:48)
--- NOTE | 2017-03-01 11:21 | CDI ---
Last Revision, January 2017 Documentation Clarification Form Date: 02/23/2017 3:26:00 PM From: Elba Zafar RN, CCDS Admit Date: 02/23/2017 5:37:00 AM Patient Name: Jessa Hopson Visit Number: [id number] Discharge Date: ATTENTION: The Clinical Documentation Specialists (CDI) and [facility] Coding Staff appreciate your assistance in clarifying documentation. Please respond to the clarification below the line at the bottom and electronically sign. The CDI & [facility] Coding staff will review the response and follow-up if needed. Please note: Queries are made part of the Legal Health Record. If you have any questions, please contact the author of this message via ITS. Dr. Ellyn Cárdenas: A diagnosis of anemia lacks specificity to accurately reflect your patients severity of condition and clarification is needed. History/Risk Factors: Status post exploratory laparotomy with CRUZ, repair of serosal tear in cecum, with sigmoid resection and sigmoid colostomy, renal failure, seizure disorder Clinical indicators: Hemoglobin: 10.5/7.4 Hematocrit: 32.9/22.8 Treatment: 1 unit PRBC's transfused, Labs AM Daily, Ivf Bolus *In order to capture the severity of condition, please clarify the type of anemia and etiology if known: Acute blood loss anemia Acute on chronic blood loss anemia Chronic blood loss anemia Iron deficiency anemia Unable to determine Other, please specify *In order to accurately reflect this patients severity of illness, please clarify if the post-operative diagnosis is: An expected post-procedural or post-surgical condition; Integral to the procedure; Inherent to the procedure; An unexpected post-procedural or post-surgical condition related to surgical care; Other, please specify Unable to determine Please continue to document in your progress notes and discharge summary in order to capture severity of illness and risk of mortality. Include clinical findings that support your diagnosis. MTDD
--- NOTE | 2017-03-01 12:49 | P.PN ---
Subjective Patient is seen in follow-up for acute kidney injury on chronic kidney disease. Renal function is stable with creatinine at 1.69 today. Cleviprex has been discontinued and her blood pressure was actually in the systolic 90s this morning. It is now systolic 110. She has been advanced to a full liquid diet which she is tolerating. Vital signs are stable. General: The patient appeared well nourished and normally developed. HEENT: Head exam is unremarkable. Neck is without jugular venous distension. LUNGS: Lungs are clear to auscultation and percussion. Breath sounds decreased. HEART: Rate and Rhythm are regular. First and second heart sounds normal. No murmurs, rubs or gallops. ABDOMEN: Abdominal exam reveals normal bowel sounds. Non-tender and non- distended. No evidence of peritonitis. EXTREMITITES: Trace edema. Objective - Vital Signs Vital signs: Vital Signs Temp 98.0 F 03/01/17 08:00 Pulse 64 03/01/17 11:00 Resp 21 03/01/17 11:00 BP 87/54 03/01/17 11:00 Pulse Ox 93 L 03/01/17 11:00 Intake & Output 02/28/17 03/01/17 03/01/17 18:59 06:59 18:59 Intake Total 553.097 7576.5 345 Output Total 770 665 245 Balance 67.767 643.5 100 Weight 73.1 kg 73.1 kg Intake: IV 793.5 768.5 345 0.9NaCl for Pressure Bag 36 36 15 Lactated Ringers 1,000 ml 720 720 180 @ 60 mls/hr IV .[id number] [facility] Rx#:[id number] Piperacillin-Tazobactam 3 37.5 12.5 50 .375 gm In Dextrose/Water 1 50ml.bag @ 12.5 mls/hr IVPB Q12H [facility] Rx#: [id number] levETIRAcetam IV 500 mg 100 In Sodium Chloride 0.9% 100 ml @ 400 mls/hr IVPB Q12HR [facility] Rx#:[id number] Intake, IV Titration 44.267 Amount Clevidipine Butyrate 25 44.267 mg In Empty Bag 1 bag @ 1 MG/HR 2 mls/hr IV .Q24H [facility]O Rx#:[id number] Oral 540 Output: Urine 770 615 245 Stool 50 Other: Voiding Method Indwelling Catheter Indwelling Catheter Indwelling Catheter # Bowel Movements 50 ABP, PAP, CO, CI - Last Documented Arterial Blood Pressure 111/44 - Labs CBC & Chem 7: 03/01/17 04:00 03/01/17 04:00 Labs: Abnormal Lab Results - Last 24 Hours (Table) 03/01/17 03/01/17 Range/Units 04:00 04:00 RBC 2.96 L (3.80-5.40) m/uL Hgb 8.6 L (11.4-16.0) gm/dL Hct 26.7 L (34.0-46.0) % Lymphocytes # 0.4 L (1.0-4.8) k/uL Sodium 134 L (137-145) mmol/L Chloride 108 H (98-107) mmol/L BUN 26 H (7-17) mg/dL Creatinine 1.69 H (0.52-1.04) mg/dL Calcium 8.2 L (8.4-10.2) mg/dL Phosphorus 2.2 L (2.5-4.5) mg/dL Assessment and Plan Plan: Assessment: #1. Nonoliguric acute kidney injury, mostly prerenal. Resolved. #2. Chronic kidney disease stage IIIB/4 with baseline creatinine near 2. GFR at baseline. #3. Hypertension with chronic kidney disease. Cleviprex has been discontinued. Blood pressures are now actually on the lower side. #4. Colonic preparation post colonoscopy status post exploratory laparotomy. Plan: Continue with nifedipine and clonidine for blood pressure control. To hold if systolic blood pressure less than 120. Avoid nephrotoxic agents and hypotensive episodes. Diet to be advanced per surgical recommendations. Potential transfer out of the intensive care unit today.
--- NOTE | 2017-03-01 12:58 | P.PN ---
<Cinthya Hewitt M - Last Filed: 03/01/17 12:47> Subjective Progress Note Date: 03/01/17 Principal diagnosis: Perforation of sigmoid colon due to diverticulitis, status post surgical repair with colostomy This is a 76-year-old female who is postop day #4 status post exploratory laparotomy with repair of serosal tear and sigmoid colectomy for presumed perforation of the sigmoid colon in the area of the diverticulum. The patient' s exposure laparotomy did not reveal the actual perforation site to Dr. Crys Stevenson Ethan did resect the sigmoid colon which is where the patient had significant sigmoid diverticuli. The patient was having difficulty with his high blood pressure. She was started on Cleviprex at 4 mg an hour. The patient still has an NG tube in place. The patient has not had no output from the colostomy site. Other than that she's doing well. Minimal pain. Working on her incentive spirometer. No particular complaints at this time. On 02/27/2017, the patient is being seen for a follow-up. As mentioned earlier the patient is postop day #4. She is awake and alert. NG tube is in place and output is minimal at this point. There is adequate output in the colostomy site. The wound itself is clean. The patient has good bowel sounds. Hemoglobin dropped down to 8.7 without any signs of any bleeding. No fever. Currently on empiric antibiotic coverage with IV Zosyn. The creatinine is down to 2.0. No other electrodes abnormalities are seen. Blood pressure remains somewhat elevated and the clevidipine drip needs to be restarted 1 mg an hour. Artline is in place. No nausea. No change in mental status. No other significant events over the past 24 hours. On 02/28/2017 the patient is being seen in follow-up. The patient is postop day #5. The patient is alert and awake. She is concerned that she is not improving. Contrary to her concerns, I think the patient is improving. The NG tube Clamped yesterday and subsequently it got discontinued. Her colostomy site dysfunctional. Her abdominal wound is clean and intact. The patient is hemodynamically stable. In fact that she is hypertensive and she has required clevidipine drip which is still running at 1 mg an hour. I'm going to start on oral medication for blood pressure control and hopefully should be enough to gradually wean her off the IV antihypertensive medication. She has no nausea. No vomiting no fever or chills. No other significant events overnight. No confusion. Altered mentation. She remains on IV Zosyn. The patient is also being followed up by the surgical team in the intensive care units. On 03/01/2017 patient is seen in the intensive care, doing very well, currently sitting up in the recliner, tolerating activity well. On room air, with O2 sat at 93-94%. Denies any worsening dyspnea. Yesterday we restarted her home meds , including oral clonidine, and Procardia, patient was weaned off clevidipine. Currently blood pressures are running in the 80s to 110 systolic, and in the 50s to 60s diastolic. Her morning dose of Procardia and clonidine were held. Patient's heart rate ranges between 60-70, sinus rhythm. Still has her A-line, which reads about 10 mmHg higher than the cuff pressure. Patient is asymptomatic, making adequate amounts of urine. Lung sounds are clear to auscultation. Abdomen is soft, slightly tender. She is tolerating clear liquid diet, popsicles. No vomiting, no fever, no chills. She is alert, awake , oriented 3. Colostomy is functioning, and there is small amount of liquid brown output from the colostomy. Mid abdominal incision has black foam packing and wound VAC is present, there is no drainage out of it. We will inquire if the surgery would like to continue the wound VAC. Otherwise patient remains stable, and is ready to transfer out of the unit today to a surgical floor. Objective - Vital Signs Vital signs: Vital Signs Temp 98.0 F 03/01/17 08:00 Pulse 64 03/01/17 11:00 Resp 21 03/01/17 11:00 BP 87/54 03/01/17 11:00 Pulse Ox 93 L 03/01/17 11:00 Intake & Output 02/28/17 03/01/17 03/01/17 18:59 06:59 18:59 Intake Total 858.597 0393.5 345 Output Total 770 665 245 Balance 67.767 643.5 100 Weight 73.1 kg 73.1 kg Intake: IV 793.5 768.5 345 0.9NaCl for Pressure Bag 36 36 15 Lactated Ringers 1,000 ml 720 720 180 @ 60 mls/hr IV .[id number] [facility] Rx#:[id number] Piperacillin-Tazobactam 3 37.5 12.5 50 .375 gm In Dextrose/Water 1 50ml.bag @ 12.5 mls/hr IVPB Q12H [facility] Rx#: [id number] levETIRAcetam IV 500 mg 100 In Sodium Chloride 0.9% 100 ml @ 400 mls/hr IVPB Q12HR [facility] Rx#:[id number] Intake, IV Titration 44.267 Amount Clevidipine Butyrate 25 44.267 mg In Empty Bag 1 bag @ 1 MG/HR 2 mls/hr IV .Q24H [facility] Rx#:[id number] Oral 540 Output: Urine 770 615 245 Stool 50 Other: Voiding Method Indwelling Catheter Indwelling Catheter Indwelling Catheter # Bowel Movements 50 ABP, PAP, CO, CI - Last Documented Arterial Blood Pressure 111/44 - Exam No acute distress, oriented 3. HEENT examination is grossly unremarkable. Mucous membranes are moist. No oral lesions. NG tube has been removed for now. Neck supple. Full range of motion. No adenopathy thyromegaly or neck vein distention. Cardiovascular examination reveals regular rhythm rate. S1-S2 normal. No S3 or S4. No discernible murmur noted. Lungs reveal clear breath sounds. Her sounds are equal bilaterally. No adventitious lung sounds including wheezes rhonchi or crackles. Abdomen soft with bowel sounds. There is mild tenderness. The colostomy site is functional. There is adequate amount of output. His adequate bowel sounds. The wound itself is dry clean and intact. Wound VAC is on, black foam packing is present, there is no drainage in the wound VAC canister. Extremities are intact. No cyanosis clubbing or edema. Skin is without rash or lesion. Neurologic examination is brief but nonfocal. - Labs CBC & Chem 7: 03/01/17 04:00 03/01/17 04:00 Labs: Abnormal Lab Results - Last 24 Hours (Table) 03/01/17 03/01/17 Range/Units 04:00 04:00 RBC 2.96 L (3.80-5.40) m/uL Hgb 8.6 L (11.4-16.0) gm/dL Hct 26.7 L (34.0-46.0) % Lymphocytes # 0.4 L (1.0-4.8) k/uL Sodium 134 L (137-145) mmol/L Chloride 108 H (98-107) mmol/L BUN 26 H (7-17) mg/dL Creatinine 1.69 H (0.52-1.04) mg/dL Calcium 8.2 L (8.4-10.2) mg/dL Phosphorus 2.2 L (2.5-4.5) mg/dL Assessment and Plan Plan: Assessment: 1. Perforation of sigmoid colon due to diverticulitis, status post surgical repair with colostomy, postop day #6 2. Acute diverticulitis 3. postop anemia, with interval drop in hemoglobin down to 8.6 4. CAD 5. Hypertension, currently off clevidipine and she is on clonidine transdermal patch and Vasotec 1.25 g every 4 hours on a when necessary basis for blood pressure control and labetalol 20 mg IV push every 2 hours on a when necessary basis. 6. Seizure disorder, currently on Keppra 7. Acute Acute failure CO improving the creatinine is down to 1.8. No other significant electrode imbalance this point PLAN Continue increasing patient's activity, continue aggressive pulmonary toileting , encourage use of the incentive spirometer. Tolerating clear liquid diet. Clevidipine has been weaned off, patient has been restarted on oral antihypertensives. Morning dose of antihypertensives were held in view of mild hypotension but patient is asymptomatic, making adequate amount of urine. Continue IV Zosyn. Monitor electrolytes. Renal function continues to improve. Patient can be transferred out of the unit today to a regular surgical floor. I performed a history & physical examination of the patient and discussed their management with my nurse practitioner, Cinthya Hewitt. I reviewed the nurse practitioner's note and agree with the documented findings and plan of care. Lung sounds are clear. The findings and the impression was discussed with the patient. I attest to the documentation by the nurse practitioner. Time with Patient: Greater than 30 <Kenrick Reyes - Last Filed: 03/01/17 16:09> Objective - Vital Signs Vital signs: Vital Signs Temp 98.0 F 03/01/17 08:00 Pulse 63 03/01/17 15:00 Resp 20 03/01/17 15:00 BP 105/58 03/01/17 14:00 Pulse Ox 93 L 03/01/17 12:00 Intake & Output 02/28/17 03/01/17 03/01/17 18:59 06:59 18:59 Intake Total 718.007 2736.5 591 Output Total 770 665 365 Balance 67.767 643.5 226 Weight 73.1 kg 73.1 kg Intake: IV 793.5 768.5 591 0.9NaCl for Pressure Bag 36 36 21 Lactated Ringers 1,000 ml 720 720 420 @ 60 mls/hr IV .[id number] [facility] Rx#:[id number] Piperacillin-Tazobactam 3 37.5 12.5 50 .375 gm In Dextrose/Water 1 50ml.bag @ 12.5 mls/hr IVPB Q12H [facility]O Rx#: [id number] levETIRAcetam IV 500 mg 100 In Sodium Chloride 0.9% 100 ml @ 400 mls/hr IVPB Q12HR [facility] Rx#:[id number] Intake, IV Titration 44.267 Amount Clevidipine Butyrate 25 44.267 mg In Empty Bag 1 bag @ 1 MG/HR 2 mls/hr IV .Q24H [facility]O Rx#:[id number] Oral 540 Output: Urine 770 615 365 Stool 50 Other: Voiding Method Indwelling Catheter Indwelling Catheter Indwelling Catheter # Bowel Movements 50 ABP, PAP, CO, CI - Last Documented Arterial Blood Pressure 111/44 - Labs CBC & Chem 7: 03/01/17 04:00 03/01/17 04:00 Labs: Abnormal Lab Results - Last 24 Hours (Table) 03/01/17 03/01/17 Range/Units 04:00 04:00 RBC 2.96 L (3.80-5.40) m/uL Hgb 8.6 L (11.4-16.0) gm/dL Hct 26.7 L (34.0-46.0) % Lymphocytes # 0.4 L (1.0-4.8) k/uL Sodium 134 L (137-145) mmol/L Chloride 108 H (98-107) mmol/L BUN 26 H (7-17) mg/dL Creatinine 1.69 H (0.52-1.04) mg/dL Calcium 8.2 L (8.4-10.2) mg/dL Phosphorus 2.2 L (2.5-4.5) mg/dL Assessment and Plan Plan: This is a joint evaluation that was done along with a nurse practitioner. I tested above-mentioned information. The patient is recovering nicely and she is postop day #6. She is advancing her diet. Blood pressures under better control and the patient is off the Drip. Physical therapy to being consult. Continue using incentive spirometer. We'll continue to follow. She can be potentially transfer to a regular surgical floor. The Artline can be also discontinued.
--- NOTE | 2017-03-01 14:05 | P.PN ---
Subjective Progress Note Date: 03/01/17 76-year-old female seen and examined currently resting in bed. States has been up in a chair this morning. Pleasant cooperative oriented 3. Tolerating a clear liquid diet. No nausea no vomiting. Ostomy functioning there is a small amount of liquid brown stool from the ostomy. Continues to have a wound VAC in place Objective - Vital Signs Vital signs: Vital Signs Temp 98.0 F 03/01/17 08:00 Pulse 72 03/01/17 13:00 Resp 29 H 03/01/17 13:00 BP 105/58 03/01/17 13:00 Pulse Ox 93 L 03/01/17 12:00 Intake & Output 02/28/17 03/01/17 03/01/17 18:59 06:59 18:59 Intake Total 071.134 5277.5 471 Output Total 770 665 305 Balance 67.767 643.5 166 Weight 73.1 kg 73.1 kg Intake: IV 793.5 768.5 471 0.9NaCl for Pressure Bag 36 36 21 Lactated Ringers 1,000 ml 720 720 300 @ 60 mls/hr IV .[id number] [facility] Rx#:[id number] Piperacillin-Tazobactam 3 37.5 12.5 50 .375 gm In Dextrose/Water 1 50ml.bag @ 12.5 mls/hr IVPB Q12H [facility] Rx#: [id number] levETIRAcetam IV 500 mg 100 In Sodium Chloride 0.9% 100 ml @ 400 mls/hr IVPB Q12HR [facility] Rx#:[id number] Intake, IV Titration 44.267 Amount Clevidipine Butyrate 25 44.267 mg In Empty Bag 1 bag @ 1 MG/HR 2 mls/hr IV .Q24H [facility]O Rx#:[id number] Oral 540 Output: Urine 770 615 305 Stool 50 Other: Voiding Method Indwelling Catheter Indwelling Catheter Indwelling Catheter # Bowel Movements 50 ABP, PAP, CO, CI - Last Documented Arterial Blood Pressure 111/44 - Exam Physical exam 76-year-old female sitting up in bed appears in no acute distress talkative pleasant Lungs diminished at the bases otherwise adequate air movement on room air sats are 93% no cough noted Heart S1-S2 audible and regular Abdomen soft and not distended ostomy small amount of liquid stool noted wound VAC in place dressing midline clean and dry soft indwelling Almendarez catheter in place tolerating popsicles and clear liquids no reports of nausea vomiting Extremities Venodyne's on to the bilateral lower extremities no edema - Labs CBC & Chem 7: 03/01/17 04:00 03/01/17 04:00 Labs: Abnormal Lab Results - Last 24 Hours (Table) 03/01/17 03/01/17 Range/Units 04:00 04:00 RBC 2.96 L (3.80-5.40) m/uL Hgb 8.6 L (11.4-16.0) gm/dL Hct 26.7 L (34.0-46.0) % Lymphocytes # 0.4 L (1.0-4.8) k/uL Sodium 134 L (137-145) mmol/L Chloride 108 H (98-107) mmol/L BUN 26 H (7-17) mg/dL Creatinine 1.69 H (0.52-1.04) mg/dL Calcium 8.2 L (8.4-10.2) mg/dL Phosphorus 2.2 L (2.5-4.5) mg/dL Assessment and Plan Assessment: Impression Present on admission acute abdominal pain likely due to a diverticular perforation with free air Postop February 23 exploratory laparotomy, extensive lysis of adhesions, repair serosal tear in the cecum, sigmoid resection and sigmoid colostomy Present on admission acute renal failure likely due to colonic perforation improving Chronic kidney disease stage IIIB Perforation of the sigmoid colon due to diverticulitis Bowel perforation post colonoscopy Hypertension urgency Leukocytosis improving History of a seizure disorder prior CVA by history Severe postop anemia Plan Continue postop surgical care Defer to medicine service for medical issues Pain control IV antibiotics Zosyn as ordered Pain control Potassium to be replaced per protocol Repeat labs in the morning DVT and GI prophylaxis The above impression and plan of care have been discussed and directed by signing physician. Chloé Turcios nurse practitioner acting as scribe for signing physician. Dr. clayton nixon on behalf of Dr. Kat
--- NOTE | 2017-03-01 17:12 | P.PN ---
Progress Note - Text Progress Note Date: 03/01/17 DATE OF SERVICE: 03/01/2017 PRESENTING COMPLAINT: Acute abdominal pain HISTORY OF PRESENT ILLNESS: 76-year-old female status post exploratory laparotomy with repair of serosal tear and sigmoid colectomy for presumed perforation of the sigmoid colon in the area of diverticulum. INTERVAL HISTORY: 03/01/2017: Patient sitting up in a chair, appears comfortable using incentive spirometer. Has had difficulty with her blood pressure, a.m. dose of Procardia and clonidine were held today. Blood pressures are running in the 80-110's systolic. home medications were restarted yesterday. Continues to have an a line which reads about 10 mmHg higher than the blood pressure cuff. REVIEW OF SYSTEMS: Done for constitutional ,cardiovascular, GI, pulmonary with relevant findings as above. CURRENT MEDICATIONS Catapres, Vasotec, Sublimaze, Apresoline, Procardia XL 90 mg by mouth daily, Protonix 40 mg IV daily, Zosyn 3.5 g IV piggyback, Zoloft 25 mg by mouth daily. PHYSICAL EXAM VITAL SIGNS: Temperature 98.0, pulse 60, respirations 15, blood pressure 115/64, oxygen saturation 91% on room air. GENERAL APPEARANCE: Lying in bed, not in distress. EYES: Pupils equal. Conjunctiva normal. NECK: JVD not raised. Mass not palpable. RESPIRATORY: Respiratory effort normal. Lungs clear to auscultation. CARDIOVASCULAR: First and second sounds normal. No edema. ABDOMEN: Soft. Liver and spleen not palpable. Mild tenderness. Colostomy bag in place left upper quadrant with brown liquid stool noted, No mass palpable. GENITOURINARY: Almendarez catheter in place straining clear yellow urine PSYCHIATRY: Alert and oriented x3. Mood and affect normal. INTEGUMENT: Midline incision with wound VAC sponge and dressing in place. Minimal drainage noted INVESTIGATIONS: LABS: Hemoglobin 8.6, sodium 134, chloride 108, BUN 26, creatinine 1.69. 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 Overall condition stable for transfer to medical surgical floor. Continue to advance diet per surgical services. Plan of care discussed with patient at bedside will follow closely. INFANTRYMAN statement: Patient was seen and examined by nurse practitioner Nichelle Ross and all elements of the case discussed with attending Dr. De Guzman
--- NOTE | 2017-03-01 20:48 | PN ---
PROGRESS NOTE DATE OF SERVICE: 03/01/2017. ATTENDING NOTE: Patient seen and examined by me. I discussed with my nurse practitioner, Cody. Patient is status post colostomy for sigmoid perforation. Tolerating a full liquid diet. I saw the patient in the ICU this morning. Colostomy bag is functioning. Patient has also got a midline wound VAC, though not attached to a vacuum. Pain is controlled. Some stool in the colostomy bag. EXAMINATION: Temperature 89, pulse 60, respirations 15, blood pressure 115/64, pulse ox 91% on room air. GENERAL APPEARANCE: Sitting up on bed, comfortable. LUNGS: Slightly decreased breath sounds. CARDIOVASCULAR: First and second sounds normal. ABDOMEN: Soft. Mild tenderness. Wound VAC in place and a colostomy bag with liquid stool. PSYCH: AO x3. Mood and affect normal. Some chronic left-sided weakness. White count 4.7, hemoglobin 8.6. Potassium 4.3, BUN 26, creatinine 1.69. ASSESSMENT: 1. Acute sigmoid perforation from acute diverticulitis leading to sigmoid resection and colostomy. 2. Chronic seizure disorder. 3. Post blood loss anemia as expected from surgery. 4. Chronic congestive heart failure, ejection fraction not known, from underlying coronary artery disease. 5. Essential hypertension. 6. Chronic kidney disease stage 3 from nephrosclerosis. 7. Left-sided weakness from an old stroke. 8. Hypothyroid. 9. Primary osteoarthritis multiple joints. 10.Chronic urinary stress incontinence. 11.Bipolar disorder for which patient is on Zoloft. PLAN: Patient is already on a full liquid diet. Bowels are working good. Blood pressure has been uncontrolled. Medication will be adjusted accordingly. The patient is on IV Zosyn. MMODL / IJN: [id number] /
[2017-03-02] MEDS: hydrALAZINE HCL 20 MG/ML 1 ML VIAL IVP PRN ×2 (01:07→09:06)
[2017-03-02 01:32] VITALS: RESP 16
[2017-03-02 07:08] LABS: Basophils % (A) 1 %; Eosinophils # (A) 0.3 k/uL (0-0.7); Eosinophils % (A) 6 %; HCT 27.3 % (34.0-46.0); HGB 8.5 gm/dL (11.4-16.0); Lymphocytes # (A) 0.4 k/uL (1.0-4.8); Lymphocytes % (A) 7 %; MCH 28.6 pg (25.0-35.0); MCHC 31.3 g/dL (31.0-37.0); MCV 91.5 fL (80.0-100.0); Monocytes # (A) 0.4 k/uL (0-1.0); Monocytes % (A) 8 %; Neutrophils # (A) 3.8 k/uL (1.3-7.7); Neutrophils % (A) 77 %; Platelet Count 188 k/uL (150-450); RBC 2.98 m/uL (3.80-5.40); RDW 13.7 % (11.5-15.5); WBC 4.9 k/uL (3.8-10.6)
[2017-03-02] MEDS: LACTATED RINGERS 1,000 ML IV SCH (07:15)
[2017-03-02] MEDS: LEVOTHYROXINE 125 MCG TAB PO SCH (07:15)
[2017-03-02 07:20] LABS: Calcium 8.2 mg/dL (8.4-10.2); Potassium 4.3 mmol/L (3.5-5.1)
[2017-03-02] MEDS: NITROGLYCERIN OINT 1 INCH/GM PACKET TOPICAL SCH (07:54)
[2017-03-02] MEDS: NIFEdipine XL 90 MG TAB.ER.24 PO SCH (09:05)
[2017-03-02] MEDS: HEPARIN SODIUM,PORCINE 5,000 UNIT/ML 1 ML VIAL SQ SCH (09:06)
[2017-03-02] MEDS: SERTRALINE 25 MG TAB PO SCH (09:07)
[2017-03-02] MEDS: cloNIDine HCL 0.2 MG TAB PO SCH (09:07)
[2017-03-02] MEDS: PANTOPRAZOLE 40 MG/10 ML VIAL IV SCH (09:07)
[2017-03-02] MEDS: levETIRAcetam IV 500 MG in SODIUM CHLORIDE 0.9% 100 ML IVPB SCH (09:07)
--- NOTE | 2017-03-02 09:21 | P.PN ---
Subjective Progress Note Date: 03/02/17 76-year-old female seen and examined sitting up in a chair this morning taking a diet tolerating no reports of nausea vomiting ostomy functioning moderate amount of stool noted reports no abdominal pain. Discharge plan is in progress when medically stable subacute rehab [facility] patient's choice antihypertensive meds being adjusted current blood pressure reading 168/81 with a heart rate in the 80s The white counts morning's down to 4.9 hemoglobin 8.5 electrolytes within normal limits and the creatinine 1.8 Postop February 23 exploratory laparotomy, extensive lysis of adhesions, repair serosal tear in the cecum, sigmoid resection and sigmoid colostomy Objective - Vital Signs Vital signs: Vital Signs Temp 99.1 F 03/02/17 07:19 Pulse 84 03/02/17 07:19 Resp 16 03/02/17 07:19 BP 168/81 03/02/17 07:19 Pulse Ox 95 03/02/17 07:19 Intake & Output 03/01/17 03/02/17 03/02/17 18:59 06:59 18:59 Intake Total 821 100 Output Total 540 150 650 Balance 281 -50 -650 Weight 73.1 kg Intake: IV 821 0.9NaCl for Pressure Bag 21 Lactated Ringers 1,000 ml 600 @ 60 mls/hr IV .[id number] [facility] Rx#:[id number] Piperacillin-Tazobactam 3 100 .375 gm In Dextrose/Water 1 50ml.bag @ 12.5 mls/hr IVPB Q12H [facility] Rx#: [id number] levETIRAcetam IV 500 mg 100 In Sodium Chloride 0.9% 100 ml @ 400 mls/hr IVPB Q12HR [facility] Rx#:[id number] Oral 100 Output: Urine 490 25 650 Uretheral (Almendarez) 650 Stool 50 125 Other: Voiding Method Indwelling Catheter Bedpan Diaper ABP, PAP, CO, CI - Last Documented Arterial Blood Pressure 111/44 - Exam Physical exam 76-year-old female sitting up in bed appears in no acute distress talkative pleasant Lungs diminished at the bases otherwise adequate air movement on room air sats are 93% no cough noted Heart S1-S2 audible and regular Abdomen soft and not distended ostomy small amount of liquid stool dressing midline clean and dry soft suture line surgical site well approximated no reports of nausea vomiting Extremities Venodyne's on to the bilateral lower extremities no edema - Labs CBC & Chem 7: 03/02/17 06:36 03/02/17 06:36 Labs: Abnormal Lab Results - Last 24 Hours (Table) 03/02/17 03/02/17 Range/Units 06:36 06:36 RBC 2.98 L (3.80-5.40) m/uL Hgb 8.5 L (11.4-16.0) gm/dL Hct 27.3 L (34.0-46.0) % Lymphocytes # 0.4 L (1.0-4.8) k/uL Sodium 132 L (137-145) mmol/L Carbon Dioxide 21 L (22-30) mmol/L BUN 25 H (7-17) mg/dL Creatinine 1.80 H (0.52-1.04) mg/dL Calcium 8.2 L (8.4-10.2) mg/dL Assessment and Plan Assessment: Impression Present on admission acute abdominal pain likely due to a diverticular perforation with free air Postop February 23 exploratory laparotomy, extensive lysis of adhesions, repair serosal tear in the cecum, sigmoid resection and sigmoid colostomy Present on admission acute renal failure likely due to colonic perforation improving Chronic kidney disease stage IIIB Perforation of the sigmoid colon due to diverticulitis Bowel perforation post colonoscopy Hypertension urgency Leukocytosis improving History of a seizure disorder prior CVA by history Severe postop anemia Plan PT OT eval Prepped for transfer to F if okayed with medical service Continue postop surgical care Defer to medicine service for medical issues Pain control IV antibiotics Zosyn as ordered Pain control DVT and GI prophylaxis The above impression and plan of care have been discussed and directed by signing physician. Chloé Turcios nurse practitioner acting as scribe for signing physician. Dr. Sachi nixon on behalf of Dr. Stevenson
[2017-03-02] MEDS ORDERED: traMADol 50 MG TAB PO PRN (09:22)
[2017-03-02] MEDS: PIPERACILLIN-TAZOBACTAM 3.375 GM in DEXTROSE/WATER 1 50ML.BAG IVPB SCH (09:30)
[2017-03-02] MEDS ORDERED: hydrALAZINE HCL 50 MG TAB PO SCH (09:30)
--- NOTE | 2017-03-02 13:01 | P.DS ---
Providers Date of admission: 02/23/17 05:37 Expected date of discharge: 03/02/17 Attending physician: Ellyn Cárdenas Consults: 02/28/17 21:22 Consult Physician Routine Consulting Provider: Alistair De Guzman Consult Reason/Comments: medical rx Do you want consulting provider notified?: Yes, Notify in am 02/23/17 12:31 Consult Physician Stat Consulting Provider: Daniel Wyatt Consult Reason/Comments: ICU care Do you want consulting provider notified?: Yes 02/24/17 08:56 Consult Physician Routine Consulting Provider: Selene Mackey Consult Reason/Comments: Acute on chronic renal disease Do you want consulting provider notified?: Yes Primary care physician: Ethan [facility] Course: 76-year-old female presented on the day of admission to the emergency room to be evaluated for diffuse abdominal pain after undergoing a colonoscopy and EGD as part of a workup for diarrhea by GI service Dr. Ott. Patient presented to the emergency room after the procedure CAT scan of the abdomen showed a moderate amount of free air. Surgical consultation requested patient was seen by Dr. Kat. Patient was advised surgical option. Patient elected to undergo on February 23 Exploratory laparotomy, extensive lysis of adhesions , repair serosal tear in the cecum, sigmoid resection and sigmoid colostomy postprocedure patient was transferred to the intensive care unit for management of hypertension urgency. Patient was monitored closely throughout the ICU by the family and consumer sciences professor with recommendations. Patient does have a past medical history of a prior CVA, hypertension, memory impairment, and a seizure disorder.. Patient was transferred out of the ICU on March 01 with PT OT eval. Diet was advanced. Ostomy functioning. Blood pressure was better controlled there was no dizziness lightheadedness no chest pain. Almendarez catheter was removed on February patient did develop urinary retention needed to have indwelling Almendarez catheter placed on the february. Ostomy teaching was initiated by ostomy educator Patient was felt to be hemodynamically stable to be transferred to subacute rehab 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 Chloé Turcios nurse practitioner acting as scribe for signing physician. Dr. Negron Dictating on behalf of Dr. Stevenson Patient Condition at Discharge: Critical Plan - Discharge Summary Discharge Rx Participant: No New Discharge Prescriptions: New cloNIDine HCL [Catapres] 0.2 mg PO DAILY tab hydrALAZINE HCL [Apresoline] 50 mg PO TID tab traMADol HCl [Ultram] 50 mg PO TID PRN #30 tab PRN Reason: Mild To Moderate Pain Continue levETIRAcetam [Keppra] 500 mg PO Q12H Allopurinol [Zyloprim] 150 mg PO DAILY Spironolactone [Aldactone] 12.5 mg PO DAILY NIFEdipine [NIFEdipine ER] 90 mg PO DAILY Levothyroxine Sodium 125 mcg PO DAILY Furosemide [Lasix] 20 mg PO DAILY Carvedilol [Coreg] 6.25 mg PO AC-BID #60 tab Melatonin 1 mg PO HS PRN tab PRN Reason: sleep Sertraline HCl [Zoloft] 25 mg PO DAILY Discontinued cloNIDine 0.2 MG/24HR PATCH [Catapres-TTS] 1 patch TRANSDERM MO Discharge Medication List Allopurinol [Zyloprim] 150 mg PO DAILY 11/10/16 [History] Furosemide [Lasix] 20 mg PO DAILY 11/10/16 [History] Levothyroxine Sodium 125 mcg PO DAILY 11/10/16 [History] NIFEdipine [NIFEdipine ER] 90 mg PO DAILY 11/10/16 [History] Spironolactone [Aldactone] 12.5 mg PO DAILY 11/10/16 [History] levETIRAcetam [Keppra] 500 mg PO Q12H 11/10/16 [History] Carvedilol [Coreg] 6.25 mg PO AC-BID #60 tab 11/14/16 [Rx] Melatonin 1 mg PO HS PRN tab 11/14/16 [Rx] Sertraline HCl [Zoloft] 25 mg PO DAILY 02/23/17 [History] cloNIDine HCL [Catapres] 0.2 mg PO DAILY tab 03/02/17 [Rx] hydrALAZINE HCL [Apresoline] 50 mg PO TID tab 03/02/17 [Rx] traMADol HCl [Ultram] 50 mg PO TID PRN #30 tab 03/02/17 [Rx] Follow up Appointment(s)/Referral(s): Ethan Michelle MD [Primary Care Provider] - 1-2 days Ellyn Cárdenas MD [STAFF PHYSICIAN] - 1 Week Patient Instructions/Handouts: Colostomy Care (GEN), Colectomy (GEN) Activity/Diet/Wound Care/Special Instructions: Colostomy Care Instructions for Transition of Care: Last date of Appliance Pouching System: 03.01.2017 Current colostomy care supplies going with Mrs Cho on transition: Convatec one piece cut to fit appliance flat barrier #[id number] (three with patient) Coloplast one piece cut to fit Convex barrier #72557 (one) May need to use this if skin crease is problematic Rehab please know that she may need this if a flat barrier does not stay for the 3 - 5 days. Jessica Seal to skin crease at 3 & 9 oclock position if leakage occurs (apply to flat barrier applaince) (two with Mrs Cho) Skin prep to peristomal skin area with every change Ostomy powder to peristomal skin for irritation as needed All ostomy supplies are with Mrs Cho at her bedside for transition Mrs Cho will need disposable precut pouching system in 2-3 weeks as progresses with care. Mrs Cho will need reenforcement for care of her new Colostomy on transition Discharge Disposition: TRANSFER TO SNF/ECF
--- NOTE | 2017-03-02 15:00 | P.PN ---
Subjective Progress Note Date: 03/02/17 This is a 76-year-old female who is postop day #4 status post exploratory laparotomy with repair of serosal tear and sigmoid colectomy for presumed perforation of the sigmoid colon in the area of the diverticulum. The patient' s exposure laparotomy did not reveal the actual perforation site to Dr. Crys Stevenson Ethan did resect the sigmoid colon which is where the patient had significant sigmoid diverticuli. The patient was having difficulty with his high blood pressure. She was started on Cleviprex at 4 mg an hour. The patient still has an NG tube in place. The patient has not had no output from the colostomy site. Other than that she's doing well. Minimal pain. Working on her incentive spirometer. No particular complaints at this time. On 02/27/2017, the patient is being seen for a follow-up. As mentioned earlier the patient is postop day #4. She is awake and alert. NG tube is in place and output is minimal at this point. There is adequate output in the colostomy site. The wound itself is clean. The patient has good bowel sounds. Hemoglobin dropped down to 8.7 without any signs of any bleeding. No fever. Currently on empiric antibiotic coverage with IV Zosyn. The creatinine is down to 2.0. No other electrodes abnormalities are seen. Blood pressure remains somewhat elevated and the clevidipine drip needs to be restarted 1 mg an hour. Artline is in place. No nausea. No change in mental status. No other significant events over the past 24 hours. On 02/28/2017 the patient is being seen in follow-up. The patient is postop day #5. The patient is alert and awake. She is concerned that she is not improving. Contrary to her concerns, I think the patient is improving. The NG tube Clamped yesterday and subsequently it got discontinued. Her colostomy site dysfunctional. Her abdominal wound is clean and intact. The patient is hemodynamically stable. In fact that she is hypertensive and she has required clevidipine drip which is still running at 1 mg an hour. I'm going to start on oral medication for blood pressure control and hopefully should be enough to gradually wean her off the IV antihypertensive medication. She has no nausea. No vomiting no fever or chills. No other significant events overnight. No confusion. Altered mentation. She remains on IV Zosyn. The patient is also being followed up by the surgical team in the intensive care units. On 03/01/2017 patient is seen in the intensive care, doing very well, currently sitting up in the recliner, tolerating activity well. On room air, with O2 sat at 93-94%. Denies any worsening dyspnea. Yesterday we restarted her home meds , including oral clonidine, and Procardia, patient was weaned off clevidipine. Currently blood pressures are running in the 80s to 110 systolic, and in the 50s to 60s diastolic. Her morning dose of Procardia and clonidine were held. Patient's heart rate ranges between 60-70, sinus rhythm. Still has her A-line, which reads about 10 mmHg higher than the cuff pressure. Patient is asymptomatic, making adequate amounts of urine. Lung sounds are clear to auscultation. Abdomen is soft, slightly tender. She is tolerating clear liquid diet, popsicles. No vomiting, no fever, no chills. She is alert, awake , oriented 3. Colostomy is functioning, and there is small amount of liquid brown output from the colostomy. Mid abdominal incision has black foam packing and wound VAC is present, there is no drainage out of it. We will inquire if the surgery would like to continue the wound VAC. Otherwise patient remains stable, and is ready to transfer out of the unit today to a surgical floor. 03/02/2017 I'm seeing this patient for a follow-up. The patient is doing well. She is on room air oxygen. No respiratory difficulties. She is using incentive spirometer. Her abdominal surgical wound site is clean. Colostomy site dysfunctional. White cell count is not elevated. She is tolerating soft diet and she is gradually advancing her diet. Her blood pressures under good control. Creatinine is stable at 1.8. There has been no other significant events overnight. Objective - Vital Signs Vital signs: Vital Signs Temp 99.1 F 03/02/17 07:19 Pulse 84 03/02/17 07:19 Resp 16 03/02/17 07:19 BP 149/73 03/02/17 10:09 Pulse Ox 95 03/02/17 07:19 Intake & Output 03/01/17 03/02/17 03/02/17 18:59 06:59 18:59 Intake Total 821 100 Output Total 540 150 650 Balance 281 -50 -650 Weight 73.1 kg Intake: IV 821 0.9NaCl for Pressure Bag 21 Lactated Ringers 1,000 ml 600 @ 60 mls/hr IV .[id number] [facility] Rx#:[id number] Piperacillin-Tazobactam 3 100 .375 gm In Dextrose/Water 1 50ml.bag @ 12.5 mls/hr IVPB Q12H [facility] Rx#: [id number] levETIRAcetam IV 500 mg 100 In Sodium Chloride 0.9% 100 ml @ 400 mls/hr IVPB Q12HR [facility] Rx#:[id number] Oral 100 Output: Urine 490 25 650 Uretheral (Almendarez) 650 Stool 50 125 Other: Voiding Method Indwelling Catheter Bedpan Bedpan Diaper Diaper ABP, PAP, CO, CI - Last Documented Arterial Blood Pressure 111/44 - Exam - Exam No acute distress, oriented 3. HEENT examination is grossly unremarkable. Mucous membranes are moist. No oral lesions. NG tube has been removed for now. Neck supple. Full range of motion. No adenopathy thyromegaly or neck vein distention. Cardiovascular examination reveals regular rhythm rate. S1-S2 normal. No S3 or S4. No discernible murmur noted. Lungs reveal clear breath sounds. Her sounds are equal bilaterally. No adventitious lung sounds including wheezes rhonchi or crackles. Abdomen soft with bowel sounds. There is mild tenderness. The colostomy site is functional. There is adequate amount of output. His adequate bowel sounds. The wound itself is dry clean and intact. Wound VAC has been removed. Extremities are intact. No cyanosis clubbing or edema. Skin is without rash or lesion. Neurologic examination is brief but nonfocal. - Labs CBC & Chem 7: 03/02/17 06:36 03/02/17 06:36 Labs: Abnormal Lab Results - Last 24 Hours (Table) 03/02/17 03/02/17 Range/Units 06:36 06:36 RBC 2.98 L (3.80-5.40) m/uL Hgb 8.5 L (11.4-16.0) gm/dL Hct 27.3 L (34.0-46.0) % Lymphocytes # 0.4 L (1.0-4.8) k/uL Sodium 132 L (137-145) mmol/L Carbon Dioxide 21 L (22-30) mmol/L BUN 25 H (7-17) mg/dL Creatinine 1.80 H (0.52-1.04) mg/dL Calcium 8.2 L (8.4-10.2) mg/dL Assessment and Plan Plan: Assessment: 1. Perforation of sigmoid colon due to diverticulitis, status post surgical repair with colostomy, postop day #7 2. Acute diverticulitis, recovered 3. postop anemia, with interval drop in hemoglobin down to 8.5 4. CAD 5. Hypertension, currently off clevidipine and she is on clonidine transdermal patch and Vasotec 1.25 g every 4 hours on a when necessary basis for blood pressure control and labetalol 20 mg IV push every 2 hours on a when necessary basis. 6. Seizure disorder, currently on Keppra 7. Acute kidney injury and the patient's creatinine is down to 1.8 and is currently stable. Plan Continue supportive care. Incentive spirometer. Deep breathing. Advance diet as tolerated. Continue IV Zosyn. Blood pressure under good control. Wound is stable. Renal function is improving. The patient has been transferred to a surgical floor and will continue following up this patient on as-needed basis. For now we'll sign off the case and contact us back if needed.
[2017-03-02 15:20] VITALS: BP 127/60; PULSE 74; TEMP 97
--- NOTE | 2017-03-02 15:43 | PN ---
PROGRESS NOTE DATE OF SERVICE: 03/02/17. ATTENDING NOTE: Patient seen and examined by me. I discussed with nurse practitioner, Ms. Ross. The patient is doing better. Has been advanced to soft bland diet. Colostomy bag is working well. Lying in bed. PHYSICAL EXAMINATION: Temperature 99.1, pulse 74, respiration 16, blood pressure 168/81, repeat 149/73. LUNGS: Fair entry. CARDIOVASCULAR: First and second sounds normal. ASSESSMENT: 1. Acute sigmoid perforation from acute diverticulitis leading to sigmoid resection and colostomy. 2. Essential hypertension. 3. Chronic kidney disease stage III from nephrosclerosis. 4. Other medical conditions are stable. PLAN: Will increase patient's Catapres to 0.2 twice a day. Otherwise medically stable. I spoke to Chloé from General Surgery. Antibiotics are to be discontinued. The patient is going to rehab. MARLENY / ESTELA: [id number] /
[2017-03-02 16:00] VITALS: BMI 28.5
--- NOTE | 2017-03-02 17:06 | P.PN ---
Progress Note - Text Progress Note Date: 03/02/17 DATE OF SERVICE: 03/02/2017 PRESENTING COMPLAINT: Acute abdominal pain HISTORY OF PRESENT ILLNESS: 76-year-old female status post exploratory laparotomy with repair of serosal tear and sigmoid colectomy for presumed perforation of the sigmoid colon in the area of diverticulum. INTERVAL HISTORY: 03/02/2017: Patient seen on the surgical floor 3 E. Patient very tearful, asking "am I dying??" Believe she is not eating enough or not doing what needs to be done. Reassurance provided. Blood pressure remains somewhat elevated additional medications added by surgery. Patient's tolerating her diet which is been advanced to soft. Surgery plans to transfer the patient to [facility] today. 03/01/2017: Patient sitting up in a chair, appears comfortable using incentive spirometer. Has had difficulty with her blood pressure, a.m. dose of Procardia and clonidine were held today. Blood pressures are running in the 80-110's systolic. home medications were restarted yesterday. Continues to have an a line which reads about 10 mmHg higher than the blood pressure cuff. REVIEW OF SYSTEMS: Done for constitutional ,cardiovascular, GI, pulmonary with relevant findings as above. CURRENT MEDICATIONS Catapres, Vasotec, Sublimaze, Apresoline, Procardia XL 90 mg by mouth daily, Protonix 40 mg IV daily, Zosyn 3.5 g IV piggyback, Zoloft 25 mg by mouth daily. PHYSICAL EXAM VITAL SIGNS: Temperature 99.1, pulse 84, respiratory rate 16, blood pressure 168/81, oxygen saturation 95% on room air GENERAL APPEARANCE: Lying in bed, not in distress. EYES: Pupils equal. Conjunctiva normal. NECK: JVD not raised. Mass not palpable. RESPIRATORY: Respiratory effort normal. Lungs clear to auscultation. CARDIOVASCULAR: First and second sounds normal. No edema. ABDOMEN: Soft. Liver and spleen not palpable. Mild tenderness. Colostomy bag in place left upper quadrant with brown liquid stool noted, No mass palpable. GENITOURINARY: Almendarez catheter in place straining clear yellow urine PSYCHIATRY: Alert and oriented x3. Mood and affect normal. INTEGUMENT: Midline incision with wound VAC sponge and dressing in place. Minimal drainage noted INVESTIGATIONS: LABS: Hemoglobin 8.6, sodium 134, chloride 108, BUN 26, creatinine 1.69. 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 Plans are to transfer patient to [facility] on the [place] today. COMPOSITION INSTRUCTOR statement: Patient was seen and examined by nurse practitioner Nichelle Ross and all elements of the case discussed with attending Dr. De Guzman
--- NOTE | 2017-03-02 20:31 | PN ---
PROGRESS NOTE Patient is seen for followup for chronic kidney disease and uncontrolled hypertension. Blood pressure is much better. IMPRESSION: 1. She is status post repair of the colon for colonic perforation status post exploratory laparotomy, colon resection and descending colostomy. 2. Hypertension, currently controlled. 3. Chronic kidney disease stage 3 to 4. 4. Acute kidney injury, currently improved. Renal function has been fairly stable. Today creatinine is back at 1.8, which is fine. The patient can be discharged from nephrology standpoint. She has had a creatinine of about 2 weeks previously. PLAN: The patient is stable for discharge from Nephrology standpoint. MMODL / IJN: [id number] /
[2017-03-02] MEDS ORDERED: levETIRAcetam 500 MG TAB PO SCH (21:00)
[2017-03-03] MEDS ORDERED: PANTOPRAZOLE 40 MG TABLET PO SCH (07:30)
== END 2017-03-02 16:20 | DRG 330 ==
LOC: EC 03:01 → 3SUR 05:37 → 6ICU 10:00 → 3SUR 03-01 18:51
PROVIDERS: ADMIT Surgery; ATTEND Surgery
PROC: 0DQH0ZZ Repair Cecum, Open Approach (ICD-10-PCS; principal; 2017-02-23 07:30)
PROC: 0DBN0ZZ Excision of Sigmoid Colon, Open Approach (ICD-10-PCS; principal; 2017-02-23 07:30)
PROC: 0D1N0Z4 Bypass Sigmoid Colon to Cutaneous, Open Approach (ICD-10-PCS; principal; 2017-02-23 07:30)
PROC: 0DNN0ZZ Release Sigmoid Colon, Open Approach (ICD-10-PCS; principal; 2017-02-23 07:30)
DX: K57.20 Diverticulitis of large intestine with perforation and abscess without bleeding (principal); E87.2 Acidosis; N17.9 Acute kidney failure, unspecified; N18.4 Chronic kidney disease, stage 4 (severe); E83.42 Hypomagnesemia; E87.1 Hypo-osmolality and hyponatremia; D62 Acute posthemorrhagic anemia; I13.0 Hypertensive heart and chronic kidney disease with heart failure and stage 1 through stage 4 chronic kidney disease, or unspecified chronic kidney disease; I50.9 Heart failure, unspecified; I69.354 Hemiplegia and hemiparesis following cerebral infarction affecting left non-dominant side; F03.90 Unspecified dementia, unspecified severity, without behavioral disturbance, psychotic disturbance, mood disturbance, and anxiety; G40.909 Epilepsy, unspecified, not intractable, without status epilepticus; E86.0 Dehydration; E86.1 Hypovolemia; E03.9 Hypothyroidism, unspecified; F31.9 Bipolar disorder, unspecified; F41.9 Anxiety disorder, unspecified; Z88.5 Allergy status to narcotic agent; Z88.3 Allergy status to other anti-infective agents; Z91.040 Latex allergy status; Z79.899 Other long term (current) drug therapy; I25.10 Atherosclerotic heart disease of native coronary artery without angina pectoris; K29.70 Gastritis, unspecified, without bleeding; M19.91 Primary osteoarthritis, unspecified site; N39.3 Stress incontinence (female) (male); Z80.3 Family history of malignant neoplasm of breast; Z82.0 Family history of epilepsy and other diseases of the nervous system; Z82.49 Family history of ischemic heart disease and other diseases of the circulatory system; Z87.891 Personal history of nicotine dependence; Z90.710 Acquired absence of both cervix and uterus; I69.311 Memory deficit following cerebral infarction; K66.0 Peritoneal adhesions (postprocedural) (postinfection)
CPT/HCPCS: 36415; 43239; 45380; 71010; 74000; 74176; 80048; 80051; 80053; 81001; 82150; 83605; 83690; 83735; 84100; 85025; 85610; 86335; 86850; 86900; 86901; 86920; 88305; 88307; 88342; 96361; 96365; 96375; 99291

== ENCOUNTER 2017-03-06 02:59 | Inpatient (IN) | payer BC, MEDICARE ==
[2017-03-06 03:56] LABS: HCT 29.8 % (34.0-46.0); HGB 9.8 gm/dL (11.4-16.0); MCH 29.1 pg (25.0-35.0); MCV 88.2 fL (80.0-100.0); Mean Platelet Volume 8.2; Platelet Count 231 k/uL (150-450); RBC 3.38 m/uL (3.80-5.40); RDW 14.8 % (11.5-15.5); WBC 4.7 k/uL (3.8-10.6)
[2017-03-06] MEDS ORDERED: MORPHINE SULFATE 5 MG/ML SYRINGE IV STA (04:09)
[2017-03-06] MEDS ORDERED: ONDANSETRON 4 MG/2 ML VIAL IVP STA (04:10)
--- NOTE | 2017-03-06 04:19 | ED ---
Abdominal Pain HPI - General Chief Complaint: Abdominal Pain Stated Complaint: Abd pain Time Seen by Provider: 03/06/17 03:11 Source: patient, EMS Mode of arrival: EMS Limitations: physical limitation - History of Present Illness Initial Comments: This patient is a 76-year-old woman who is here from [facility] to be evaluated for abdominal pain that developed tonight. Her recent history is notable for having had a colonoscopy performed on February 22 which was complicated by an apparent perforation. She return to the emergency department on February 23, where she was admitted and underwent colostomy. She was in the hospital until March 02, and discharged to the senior care for rehabilitation. She reportedly was doing fairly well with that until tonight when she developed pain. The patient is able to state that the pain is constant and severe. She indicates diffusely through the abdomen though somewhat worse on the left side. She is not able to characterize it well. She has not noted any worsening or relieving factors. She was given dose of tramadol at the [facility], but that did not give her much relief at all. She does state that she is having nausea associated. MD Complaint: abdominal pain -: hour(s) Location: diffuse Radiation: none Severity: severe Quality: other (Unable to characterize) Consistency: constant Improves With: nothing Worsens With: nothing Associated Symptoms: nausea - Related Data Previous Rx's Medication Instructions Recorded LORazepam [Ativan] 1 mg PO Q4H #30 tablet 03/10/17 MORPHINE ORAL PAVEL CONC 20mg/mL 5 mg PO Q4H PRN #30 ml 03/10/17 [Roxanol Oral Soln Conc 20Mg/ml] Scopolamine 1.5MG/72Hr Patch 1 patch TRANSDERM Q72H #10 patch 03/10/17 [TransDerm Scop] Allergies Allergy/AdvReac Type Severity Reaction Status Date / Time iodine Allergy Rash/Hives Verified 03/06/17 07:16 latex Allergy Rash/Hives Verified 03/06/17 07:16 codeine AdvReac Nausea & Verified 03/06/17 07:16 Vomiting Review of Systems ROS Statement: Those systems with pertinent positive or pertinent negative responses have been documented in the HPI. ROS Other: All systems not noted in ROS Statement are negative. Constitutional: Denies: fever Respiratory: Denies: cough, dyspnea Cardiovascular: Denies: chest pain, syncope Gastrointestinal: Reports: as per HPI, abdominal pain, nausea, vomiting. 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 LAST SEIZURE 09/2016 History of Any Multi-Drug Resistant Organisms: None Reported Date of last positivie culture/infection: None MDRO Source:: None Past Surgical History: Appendectomy, Cholecystectomy, Hysterectomy Additional Past Surgical History / Comment(s): COLONOSCOPY Past Anesthesia/Blood Transfusion Reactions: No Reported Reaction Past Psychological History: Anxiety, Bipolar, Depression Smoking Status: Former smoker - Past Family History Father Family Medical History: Coronary Artery Disease (CAD), Thyroid Disorder Additional Family Medical History / Comment(s): father had quad. bypass. Grave' s disease Mother Family Medical History: Cancer, Dementia Additional Family Medical History / Comment(s): Alzheimer's, breast Cancer General Exam Limitations: physical limitation General appearance: alert, in distress Head exam: Present: atraumatic, normocephalic Eye exam: Present: normal appearance. Absent: scleral icterus, conjunctival injection ENT exam: Present: normal oropharynx Neck exam: Present: normal inspection Respiratory exam: Present: normal lung sounds bilaterally. Absent: respiratory distress, wheezes, rales, rhonchi, stridor Cardiovascular Exam: Present: regular rate, normal rhythm, normal heart sounds. Absent: systolic murmur, diastolic murmur, rubs, gallop GI/Abdominal exam: Present: soft, tenderness, diminished bowel sounds, other ( Patient does have surgical ken that are intact. Her surgical incision is clean and dry without any abnormal erythema or drainage. The ostomy does have dark brown stool.). Absent: distended, guarding, rebound, mass Extremities exam: Present: normal inspection, normal capillary refill. Absent: pedal edema, calf tenderness Neurological exam: Present: alert. Absent: motor sensory deficit Skin exam: Present: warm, dry, intact, normal color. Absent: rash Course Vital Signs 03/06/17 03/06/17 03/06/17 03:01 05:07 06:00 Temperature 97.6 F Pulse Rate 59 L 70 58 L Respiratory 18 20 16 Rate Blood Pressure 130/61 112/68 105/57 O2 Sat by Pulse 97 98 97 Oximetry 03/06/17 03/06/17 07:00 07:53 Temperature 97.4 F L Pulse Rate 64 55 L Respiratory 20 18 Rate Blood Pressure 102/68 99/57 O2 Sat by Pulse 97 95 Oximetry Medical Decision Making - Medical Decision Making Patient is 76-year-old woman post partial colectomy and colostomy for perforation. She comes today with abdominal pain and vomiting and the computed tomography scan is noted for ileus versus early small bowel obstruction. Case discussed with Dr. Negron, who is covering for Dr. Cárdenas. They will see the patient this morning. Patient admitted under medicine service given her multiple medical problems. - Lab Data Result diagrams: 03/10/17 06:45 03/10/17 17:40 Lab Results 03/06/17 03/06/17 03/06/17 Range/Units 00:01 03:14 03:14 WBC 4.7 (3.8-10.6) k/uL RBC 3.38 L (3.80-5.40) m/uL Hgb 9.8 L (11.4-16.0) gm/dL Hct 29.8 L (34.0-46.0) % MCV 88.2 (80.0-100.0) fL MCH 29.1 (25.0-35.0) pg MCHC 33.0 (31.0-37.0) g/dL RDW 14.8 (11.5-15.5) % Plt Count 231 (150-450) k/uL Sodium 128 L (137-145) mmol/L Potassium 4.5 (3.5-5.1) mmol/L Chloride 99 (98-107) mmol/L Carbon Dioxide 22 (22-30) mmol/L Anion Gap 7 mmol/L BUN 33 H (7-17) mg/dL Creatinine 2.20 H (0.52-1.04) mg/dL Est GFR (MDRD) Af Amer 26 (>60 ml/min/1.73 sqM) Est GFR (MDRD) Non-Af 22 (>60 ml/min/1.73 sqM) Glucose 86 (74-99) mg/dL Calcium 8.2 L (8.4-10.2) mg/dL Amylase 184 H (30-110) U/L Lipase 1667 H (23-300) U/L Urine Color Yellow Urine Appearance Cloudy H (Clear) Urine pH 6.5 (5.0-8.0) Ur Specific [place] 1.008 (1.001-1.035) Urine Protein 1+ H (Negative) Urine Glucose (UA) Negative (Negative) Urine Ketones Negative (Negative) Urine Blood Negative (Negative) Urine Nitrite Negative (Negative) Urine Bilirubin Negative (Negative) Urine Urobilinogen <2.0 (<2.0) mg/dL Ur Leukocyte Esterase Moderate H (Negative) Urine RBC 39 H (0-5) /hpf Urine WBC 25 H (0-5) /hpf Ur Squamous Epith Cells <1 (0-4) /hpf Urine Mucus Rare H (None) /hpf Ur Yeast w Hyphae Rare (None) /hpf Urine Yeast (Budding) Many H (None) /hpf Critical Care Time Critical Care Time: Yes Total Critical Care Time: 35 Disposition Clinical Impression: Small bowel obstruction, Anemia, Acute renal failure, Elevated amylase and lipase Disposition: ADMITTED IP TO THIS [facility] Condition: Fair
[2017-03-06 04:20] LABS: Calcium 8.2 mg/dL (8.4-10.2); Potassium 4.5 mmol/L (3.5-5.1)
[2017-03-06 04:25] LABS: Appearance,Urine Cloudy (Clear); Bilirubin,Urine Negative (Negative); Blood,Urine Negative (Negative); Budding Yeast,Urine Many /hpf; Color,Urine Yellow; Glucose,Urine (UA) Negative (Negative); Hyphae Yeast, Urine Rare /hpf; Ketones,Urine Negative (Negative); Leukocyte Esterase,Urine Moderate (Negative); Mucus,Urine Rare /hpf; Nitrite,Urine Negative (Negative); PH, Urine 6.5 (5.0-8.0); Protein,Urine 1+ (Negative); RBC,Urine 39 /hpf (0-5); Specific Gravity,Urine 1.008 (1.001-1.035); Squamous Epithelial Cell,Urine <1 /hpf (0-4); Urobilinogen,Urine <2.0 mg/dL (<2.0); WBC,Urine 25 /hpf (0-5)
--- NOTE | 2017-03-06 04:50 | XR ---
EXAM: XR Abdomen Complete, 2 or More Views CLINICAL HISTORY: Reason: Pain TECHNIQUE: Frontal view of the abdomen/pelvis with upright view of the abdomen. COMPARISON: CT dated 03/06/17 FINDINGS: Intraperitoneal space: Small amount of free air. Gastrointestinal tract: Multiple prominent gas-filled loops of small bowel. Bones/joints: Left paramidline post surgical clips. IMPRESSION: Small amount of free air. This may be postsurgical in etiology. Multiple prominent gas-filled loops of small bowel, consider ileus versus obstruction.
--- NOTE | 2017-03-06 05:00 | CT ---
EXAM: CT Abdomen and Pelvis Without Intravenous Contrast CLINICAL HISTORY: Reason: Pain TECHNIQUE: Axial computed tomography images of the abdomen and pelvis without intravenous contrast. CTDI is 15.9 mGy and DLP is 795.7 mGy-cm. This CT exam was performed using one or more of the following dose reduction techniques: automated exposure control, adjustment of the mA and/or kV according to patient size, and/or use of iterative reconstruction technique. COMPARISON: No relevant prior studies available. FINDINGS: Lower thorax: Moderate bilateral pleural effusions with adjacent atelectasis/consolidation. ABDOMEN: Liver: Unremarkable. Gallbladder and bile ducts: Unremarkable. No calcified stones. No ductal dilation. Pancreas: Unremarkable. No ductal dilation. Spleen: Unremarkable. No splenomegaly. Adrenals: Unremarkable. No mass. Kidneys and ureters: Stable hypo-and hyperdense renal lesions. No obstructing stones. No hydronephrosis. Consider follow-up ultrasound. Stomach and bowel: Left lower quadrant colostomy. Multiple mildly dilated loops of small bowel with air-fluid levels. No definite transition point identified. Consider ileus versus partial small bowel obstruction. Multiple sigmoid diverticula. No mucosal thickening. Appendix: No findings to suggest acute appendicitis. PELVIS: Bladder: Almendarez catheter decompresses the urinary bladder. Reproductive: Prior hysterectomy ABDOMEN and PELVIS: Intraperitoneal space: Small amount of free air along the anterior hepatic flexure. Likely postsurgical. No significant fluid collection. Bones/joints: No acute fracture. No dislocation. Soft tissues: Small hematoma along the anterior abdominal wall near the incision site. Diffuse anasarca. Vasculature: Unremarkable. No abdominal aortic aneurysm. Lymph nodes: Unremarkable. No enlarged lymph nodes. Small left lower quadrant hernia containing a portion of bladder. IMPRESSION: Status post partial colectomy with left lower quadrant colostomy. Multiple mildly prominent loops of small bowel with air-fluid levels. Fluid throughout the colon. Consider ileus versus partial small bowel obstruction. Moderate bilateral pleural effusions with adjacent airspace disease or atelectasis. Additional chronic findings as above.
[2017-03-06] MEDS ORDERED: LORazepam 2 MG/ML INJ IV STA (05:17)
[2017-03-06] MEDS ORDERED: SODIUM CHLORIDE 0.9% 500 ML IV STA (07:32)
[2017-03-06] MEDS ORDERED: MORPHINE SULFATE 5 MG/ML SYRINGE IV PRN (07:32)
[2017-03-06] MEDS ORDERED: NALOXONE 0.4 MG/ML 1 ML VIAL IV PRN (07:32)
[2017-03-06] MEDS ORDERED: ONDANSETRON 4 MG/2 ML VIAL IVP PRN (07:32)
[2017-03-06] MEDS ORDERED: FAMOTIDINE 20 MG/2 ML VIAL IV SCH (07:45)
[2017-03-06] MEDS: SODIUM CHLORIDE 0.9% 1,000 ML IV SCH ×2 (07:47→15:54)
[2017-03-06] MEDS: FAMOTIDINE 20 MG/2 ML VIAL IV SCH (13:08)
--- NOTE | 2017-03-06 14:08 | XR ---
EXAMINATION TYPE: XR abdomen 1V DATE OF EXAM: 03/06/2017 COMPARISON: NONE INDICATION: Nasogastric tube placement TECHNIQUE: Single view abdomen upright view FINDINGS: There is a normal bowel gas pattern. No free air is evident. No differential air-fluid levels are pre sent. Psoas margins are normal. No organomegaly is present. Surgical skin ken are present over the left lower quadrant. IMPRESSION: 1. Nasogastric tube tip within the minimal proximal portion of left upper quadrant. Nasogastric tube could be advanced 8 cm for more typical positioning.
[2017-03-06 14:35] VITALS: BMI 29.7
--- NOTE | 2017-03-06 14:55 | P.GSCN ---
History of Present Illness Consult date: 03/06/17 Reason for Consult: Abdominal pain History of present illness: 76-year-old female being seen at the request of the attending for a surgical eval who presents from an [facility] facility with a chief complaint of abdominal pain. Patient was just discharged on March 02 after being hospitalized and treated for serosal tear of the cecum with free air with exploratory laparotomy , extensive lysis of adhesions, sigmoid resection and a sigmoid ostomy done on February 23. Patient had undergone February 22 EGD and a colonoscopy by Dr. Ott as part of her workup for chronic abdominal pain and chronic diarrhea. Postprocedure developed abdominal pain return to the emergency room on February 23 found to have a large amount of free air. Patient is a poor historian indicates that she has had decreased appetite since being at the [facility] facility reports no nausea no vomiting moderate amount of stool from the ostomy. The CAT scan of the abdomen pelvis without IV contrast done on the february showed no evidence of a small bowel obstruction moderate loops of small bowel with air fluid levels throughout the colon consider ileus. On admission to the emergency room there was a moderate amount of stool in the ostomy bag. The lipase was elevated to 1667. The lipase on February 23 was elevated to 1472 and February 24 was down to 489 currently when questioning patient is denying any abdominal discomfort with deep palpitation does indicate having discomfort in the right mid lower quadrant. There is a small palpable firm area with a purple ecchymotic bruise noted suspect due to subcutaneous heparin given currently has a nasal gastric tube in place Review of Systems Essentially unremarkable except as mentioned in the present illness Past Medical History Past Medical History: Heart Failure, CVA/TIA, Hypertension, Memory Impairment, Renal Disease, Seizure Disorder Additional Past Medical History / Comment(s): CVAs with last one being in 2016 with generalized weakness/memory impairment, CKD stage IV, last seizure 2016, diverticular dx/benign polyps-recent EGD/colonoscopy with sigmoid perforation-has colostomy, IDC, hypothyroid, gout. History of Any Multi-Drug Resistant Organisms: None Reported Year Discovered:: None MDRO Source:: None Past Surgical History: Appendectomy, Cholecystectomy, Hysterectomy Additional Past Surgical History / Comment(s): 02/22/17 EGD/colonoscopy, exploratory laparotomy with lysis of adhesions/sigmoid colostomy. Past Anesthesia/Blood Transfusion Reactions: No Reported Reaction Smoking Status: Former smoker - Past Family History Father Family Medical History: Coronary Artery Disease (CAD), Thyroid Disorder Additional Family Medical History / Comment(s): father had quad. bypass. Grave' s disease Mother Family Medical History: Cancer, Dementia Additional Family Medical History / Comment(s): Alzheimer's, breast Cancer Medications and Allergies Home Medications Medication Instructions Recorded Confirmed Type Allopurinol [Zyloprim] 150 mg PO DAILY 11/10/16 03/06/17 History Furosemide [Lasix] 20 mg PO DAILY 11/10/16 03/06/17 History Levothyroxine Sodium 125 mcg PO DAILY 11/10/16 03/06/17 History NIFEdipine [NIFEdipine ER] 90 mg PO DAILY 11/10/16 03/06/17 History Spironolactone [Aldactone] 12.5 mg PO DAILY 11/10/16 03/06/17 History levETIRAcetam [Keppra] 500 mg PO Q12H 11/10/16 03/06/17 History Carvedilol [Coreg] 6.25 mg PO AC-BID #60 tab 11/14/16 03/06/17 Rx Melatonin 1 mg PO HS PRN tab 11/14/16 03/06/17 Rx cloNIDine HCL [Catapres] 0.2 mg PO BID #1 tablet 03/02/17 03/06/17 Rx hydrALAZINE HCL [Apresoline] 50 mg PO TID tab 03/02/17 03/06/17 Rx traMADol HCl [Ultram] 50 mg PO TID PRN #30 tab 03/02/17 03/06/17 Rx ALPRAZolam [Xanax] 0.25 mg PO Q12H PRN 03/06/17 03/06/17 History Sertraline [Zoloft] 12.5 mg PO DAILY 03/06/17 03/06/17 History Allergies Allergy/AdvReac Type Severity Reaction Status Date / Time iodine Allergy Rash/Hives Verified 03/06/17 07:16 latex Allergy Rash/Hives Verified 03/06/17 07:16 codeine AdvReac Nausea & Verified 03/06/17 07:16 Vomiting Surgical - Exam Vital Signs Temp Pulse Resp BP Pulse Ox 97.6 F 59 L 18 130/61 97 03/06/17 03:01 03/06/17 03:01 03/06/17 03:01 03/06/17 03:01 03/06/17 03:01 GENERAL APPEARANCE: Frail 76-year-old female resting in bed awake patient is alert, oriented, in no acute distress. VITAL SIGNS: Reviewed HEENT: Head is normocephalic and atraumatic. Pupils are equal and reactive. The nares are patent. Oropharynx is clear without lesions. NECK: Supple without lymphadenopathy. Traches midline. HEART: S1, S2. Regular rate and rhythm. Denying chest pain no murmur noted LUNGS: No crackles or wheezes are heard. Posterior diminished at the bases ABDOMEN: Soft, slight tenderness right mid lower quadrant nasal gastric tube scant amount of drainage in the canister ostomy left lower quadrant moderate amount of stool in the ostomy bag indwelling Almendarez catheter in place no reports of nausea vomiting currently is denying any abdominal discomfort when questioning, nondistended with good bowel sounds. No peritoneal signs. No palpable organomegaly or masses. EXTREMITIES: Normal skin color and turgor. No cyanosis, rash, ulceration, clubbing or edema. Radial pedal pulses are 2/4 bilaterally. NEUROLOGICAL: No focal deficits. Strength and sensation are grossly intact. Results - Labs 03/06/17 03:14 03/06/17 03:14 Abnormal Lab Results - Last 24 Hours (Table) 03/06/17 03/06/17 03/06/17 Range/Units 00:01 03:14 03:14 RBC 3.38 L (3.80-5.40) m/uL Hgb 9.8 L (11.4-16.0) gm/dL Hct 29.8 L (34.0-46.0) % Sodium 128 L (137-145) mmol/L BUN 33 H (7-17) mg/dL Creatinine 2.20 H (0.52-1.04) mg/dL Calcium 8.2 L (8.4-10.2) mg/dL Amylase 184 H (30-110) U/L Lipase 1667 H (23-300) U/L Urine Appearance Cloudy H (Clear) Urine Protein 1+ H (Negative) Ur Leukocyte Esterase Moderate H (Negative) Urine RBC 39 H (0-5) /hpf Urine WBC 25 H (0-5) /hpf Urine Mucus Rare H (None) /hpf Urine Yeast (Budding) Many H (None) /hpf Diabetes panel 03/06/17 Range/Units 03:14 Sodium 128 L (137-145) mmol/L Potassium 4.5 (3.5-5.1) mmol/L Chloride 99 (98-107) mmol/L Carbon Dioxide 22 (22-30) mmol/L BUN 33 H (7-17) mg/dL Creatinine 2.20 H (0.52-1.04) mg/dL Glucose 86 (74-99) mg/dL Calcium 8.2 L (8.4-10.2) mg/dL Calcium panel 03/06/17 Range/Units 03:14 Calcium 8.2 L (8.4-10.2) mg/dL Pituitary panel 03/06/17 Range/Units 03:14 Sodium 128 L (137-145) mmol/L Potassium 4.5 (3.5-5.1) mmol/L Chloride 99 (98-107) mmol/L Carbon Dioxide 22 (22-30) mmol/L BUN 33 H (7-17) mg/dL Creatinine 2.20 H (0.52-1.04) mg/dL Glucose 86 (74-99) mg/dL Calcium 8.2 L (8.4-10.2) mg/dL Adrenal panel 03/06/17 Range/Units 03:14 Sodium 128 L (137-145) mmol/L Potassium 4.5 (3.5-5.1) mmol/L Chloride 99 (98-107) mmol/L Carbon Dioxide 22 (22-30) mmol/L BUN 33 H (7-17) mg/dL Creatinine 2.20 H (0.52-1.04) mg/dL Glucose 86 (74-99) mg/dL Calcium 8.2 L (8.4-10.2) mg/dL Assessment and Plan Assessment: Impression Present on admission hyponatremia Present on admission elevated lipase suspect pancreatitis Present on admission abdominal pain unclear etiology History of a recent February 23 abdominal pain likely due to diverticular perforation with a moderate amount of free air underwent exploratory laparotomy repair serosal tear in the cecum, sigmoid resection and sigmoid colostomy Chronic kidney disease stage III likely due to hypertensive nephrosclerosis History of a seizure disorder CVA by history Gait dysfunction secondary to a recent stroke Plan No evidence of an acute surgical abdomen at this time Continue nasal gastric tube as ordered Consult GI service for the elevated lipase await recommendations IV fluid for hydration DVT and GI prophylaxis Ostomy care PT OT eval Repeat labs in the morning Further recommendations pending will follow surgical course addressing issues as they arise Dictating the consultation note for Dr. Kat The above impression and plan of care have been discussed and directed by signing physician. Chloé Turcios nurse practitioner acting as scribe for signing physician.
--- NOTE | 2017-03-06 20:08 | HP ---
HISTORY AND PHYSICAL DATE OF ADMISSION: 03/06/17 PRESENT COMPLAINT: Nausea. HISTORY OF PRESENTING COMPLAINT: This is a pleasant 76-year-old patient who was very recently in the hospital, the patient was then admitted on 02/24/17 and discharged on March 02, 2017. The patient admitted under the service of Dr. Crys Cárdenas. The patient is status post EGD, colonoscopy, then had a serosal tear at the cecum and undergone a sigmoid resection and a sigmoid colostomy. The patient was in the ICU. The patient has a dressing in the abdomen. 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 The patient now presented with some nausea, some abdominal discomfort. No fever. In the ER, a CT scan of the abdomen showed multiple air-fluid level. The patient was felt of bowel obstruction early. NG tube was placed. Patient really did eat much yesterday. Today, actually patient's colostomy bag is working better. No abdominal pain, Dr. Crys Cárdenas from general surgery saw the patient. REVIEW OF SYSTEMS: Constitutional: Weak and tired. HEENT: NG tube in place. RESPIRATORY: None. Cardiovascular none. Gastrointestinal as above. Genitourinary none. Musculoskeletal: Aches and pains in joints. Dermatological and hematologic, lymphatic none. Psychiatry some anxiety. Neurological none. 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 PAST SURGICAL HISTORY: Appendectomy, cholecystectomy, hysterectomy, sigmoid perforation leading to colostomy. PSYCH HISTORY: Bipolar disorder. SOCIAL HISTORY: Currently doing rehab at [facility]. Using a walker. Does not smoke. Alcohol rarely. FAMILY HISTORY: Coronary artery disease, hypothyroid disease. HOME MEDICATIONS: 1. Ultram 50 mg p.o. t.i.d. p.r.n. 2. Keppra 500 mg q.12h. 3. Hydralazine 50 mg p.o. t.i.d. 4. Catapres 0.2 mg b.i.d. 5. Aldactone 12.5 p.o. daily. 6. Zoloft 12.5 p.o. daily. 7. Nifedipine ER 90 mg p.o. daily. 8. Melatonin 1 mg q.h.s. p.r.n. 9. Synthroid 125 mcg p.o. daily. 10.Lasix 20 mg p.o. daily. 11.Coreg 6.25 p.o. b.i.d. 12.Allopurinol 150 mg p.o. daily. 13.Xanax 0.25 p.o. q.12 p.r.n. PHYSICAL EXAMINATION: Vital signs on presentation: Temperature 97.6, pulse 59, respiratory 18, blood pressure 130/61, pulse ox 97% on room air. General appearance: Average build, lying in bed, tired appearing. Eyes: Pupils are equal. Conjunctivae normal. HEENT NG tube in place. Oral cavity dry mucous membranes. Neck JVD not raised. Mass not palpable. Respiratory effort normal. Lungs fair entry. Cardiovascular 1st and 2nd heart sounds normal, no edema. ABDOMEN: Soft, nontender. Dressing over midline incision. Colostomy bag with liquid stool in place. No tenderness. Liver and spleen not palpable. Lymphatics: No lymph nodes palpable in the neck and axilla. PSYCHIATRY: Alert and oriented x3. Mood and affect normal. Neurological: Pupils equal. Cranial nerves grossly intact. Power and sensation grossly intact. INVESTIGATIONS: White count 4.7, hemoglobin 9.8, potassium 4.5, sodium 128, BUN 33, creatinine 2.2. Patient's BUN and creatinine was 25/1.8 on March 02, 2017. The patient's amylase 184, lipase 1667. CT scan of the abdomen and pelvis shows multiple mildly prominent loops of small-bowel air-fluid levels and moderate bilateral pleural effusion. ASSESSMENT: 1. Possible acute pancreatitis, idiopathic. 2. Acute renal failure likely prerenal from decreased oral intake and patient being on diuretics. 3. Chronic kidney disease stage 3 from hypertensive nephrosclerosis. 4. Hyponatremia, suspect hypoosmolar. 5. Acute small-bowel obstruction in a patient who had recent sigmoid resection and colostomy for a sigmoid perforation. 6. Chronic seizure disorder. 7. Essential hypertension. 8. Chronic kidney stage 3 from nephrosclerosis. 9. Left-sided weakness from an old stroke. 10.Hypothyroid. 11.Primary osteoarthritis multiple joints. 12.Chronic urinary stress incontinence. 13.Bipolar disorder. PLAN: Patient had an NG tube earlier. Seen by Dr. Crys Cárdenas. I spoke to Chloé Turcios. NG tube now can be discontinued. Patient home medication will be resumed. Patient will be put on clear liquids. The patient also will be given IV fluids. Repeat electrolytes in the morning. The patient's diuretics of course have been held. Care was discussed with the patient. Copy to Dr. Michelle. MMSIMBAL / IJN: [id number] /
[2017-03-06] MEDS: hydrALAZINE HCL 50 MG TAB PO SCH ×2 (20:22→22:34)
[2017-03-06] MEDS: CARVEDILOL 6.25 MG TAB PO SCH (20:22)
[2017-03-06] MEDS: ALLOPURINOL 300 MG TAB PO SCH (20:24)
[2017-03-06] MEDS: levETIRAcetam 500 MG TAB PO SCH (20:24)
[2017-03-06] MEDS: LEVOTHYROXINE 125 MCG TAB PO SCH (20:24)
[2017-03-06] MEDS: cloNIDine HCL 0.2 MG TAB PO SCH (22:34)
[2017-03-06] MEDS: ALPRAZolam 0.25 MG TAB PO PRN (22:34)
[2017-03-07] MEDS: SODIUM CHLORIDE 0.9% 1,000 ML IV SCH ×3 (00:42→16:03)
[2017-03-07] MEDS: levETIRAcetam 500 MG TAB PO SCH ×2 (05:33→18:25)
[2017-03-07] MEDS: LEVOTHYROXINE 125 MCG TAB PO SCH (05:34)
[2017-03-07] MEDS: ALLOPURINOL 300 MG TAB PO SCH (07:34)
[2017-03-07] MEDS: CARVEDILOL 6.25 MG TAB PO SCH ×2 (07:34→17:27)
[2017-03-07] MEDS: cloNIDine HCL 0.2 MG TAB PO SCH ×2 (07:35→20:22)
[2017-03-07] MEDS: FAMOTIDINE 20 MG/2 ML VIAL IV SCH (07:35)
[2017-03-07] MEDS: hydrALAZINE HCL 50 MG TAB PO SCH ×2 (07:35→16:03)
[2017-03-07] MEDS: NIFEdipine XL 90 MG TAB.ER.24 PO SCH (07:36)
[2017-03-07] MEDS: SERTRALINE 25 MG TAB PO SCH (07:36)
[2017-03-07 08:09] LABS: Albumin 1.7 g/dL (3.5-5.0); Calcium 7.3 mg/dL (8.4-10.2); Potassium 4.5 mmol/L (3.5-5.1); Total Bilirubin 0.2 mg/dL (0.2-1.3); Total Protein 3.7 g/dL (6.3-8.2)
--- NOTE | 2017-03-07 08:57 | P.PN ---
Subjective Progress Note Date: 03/07/17 76-year-old female seen and examined at bedside currently is awake and alert sitting up in bed ostomy left lower quadrant functioning moderate amount of brown stool no nausea no vomiting denying abdominal discomfort lipase on admission 1667. This morning lipase down to 733 sodium 131 afebrile Objective - Vital Signs Vital signs: Vital Signs Temp 97.9 F 03/07/17 07:00 Pulse 56 L 03/07/17 07:00 Resp 16 03/07/17 07:00 BP 175/77 03/07/17 07:00 Pulse Ox 97 03/07/17 07:00 Intake & Output 03/06/17 03/07/17 03/07/17 18:59 06:59 18:59 Intake Total 1000 2600 Output Total 105 300 Balance 895 2300 Weight 78.471 kg Intake: Intake, IV Titration 1000 2000 Amount Sodium Chloride 0.9% 1, 500 2000 000 ml @ 125 mls/hr IV . Q8H LINO Rx#:[id number] Sodium Chloride 0.9% 500 500 ml @ 1000 mls/hr IV .Q30M STA Rx#:[id number] Oral 0 600 Output: Gastric Drainage 5 Urine 300 Uretheral (Almendarez) 300 Stool 100 Other: Voiding Method Indwelling Catheter Indwelling Catheter # Voids 3 - Exam physical exam 76-year-old female resting in bed appears in no acute distress Lungs adequate air movement bilaterally on room air sats 97% Heart S1-S2 audible regular denying chest pain Abdomen surgical site benign suture line well approximated no redness ostomy left lower quadrant moderate amount of brown stool in ostomy bag indwelling Almendarez catheter in place currently taking full liquid diet no nausea no vomiting states abdominal pain resolved Extremities no edema noted - Labs CBC & Chem 7: 03/06/17 03:14 03/07/17 07:05 Labs: Abnormal Lab Results - Last 24 Hours (Table) 03/07/17 Range/Units 07:05 Sodium 131 L (137-145) mmol/L Carbon Dioxide 21 L (22-30) mmol/L BUN 27 H (7-17) mg/dL Creatinine 1.95 H (0.52-1.04) mg/dL Glucose 66 L (74-99) mg/dL Calcium 7.3 L (8.4-10.2) mg/dL Total Protein 3.7 L (6.3-8.2) g/dL Albumin 1.7 L (3.5-5.0) g/dL Amylase 146 H (30-110) U/L Lipase 733 H (23-300) U/L Assessment and Plan Assessment: Impression Present on admission hyponatremia Present on admission elevated lipase suspect pancreatitis Present on admission abdominal pain unclear etiology History of a recent February 23 abdominal pain likely due to diverticular perforation with a moderate amount of free air underwent exploratory laparotomy repair serosal tear in the cecum, sigmoid resection and sigmoid colostomy Chronic kidney disease stage III likely due to hypertensive nephrosclerosis History of a seizure disorder CVA by history Gait dysfunction secondary to a recent stroke Plan No evidence of an acute surgical abdomen at this time Consult GI service for the elevated lipase await recommendations IV fluid for hydration DVT and GI prophylaxis Ostomy care PT OT eval Repeat labs in the morning Further recommendations pending will follow surgical course addressing issues as they arise Dictating the note for Dr. Kat The above impression and plan of care have been discussed and directed by signing physician. Chloé Turcios nurse practitioner acting as scribe for signing physician.year
[2017-03-07] MEDS ORDERED: SPIRONOLACTONE 25 MG TAB PO SCH (09:00)
--- NOTE | 2017-03-07 09:21 | ECHOF ---
Referral Reason:aseess LV function MEASUREMENTS -------- HEIGHT: 162.6 cm WEIGHT: 78.5 kg BP: 184/74 RVIDd: 3.5 cm (< 3.3) IVSd: 1.4 cm (0.6 - 1.1) LVIDd: 4.6 cm (3.9 - 5.3) LVPWd: 1.4 cm (0.6 - 1.1) IVSs: 1.9 cm LVIDs: 3.3 cm LVPWs: 2.0 cm LA Diam: 3.9 cm (2.7 - 3.8) LAESV Index (A-L): 40.28 ml/m Ao Diam: 3.5 cm (2.0 - 3.7) AV Cusp: 1.6 cm (1.5 - 2.6) MV EXCURSION: 9.718 mm (> 18.000) MV EF SLOPE: 22 mm/s (70 - 150) EPSS: 0.7 cm MV E Rene: 0.58 m/s MV DecT: 458 ms MV A Rene: 1.05 m/s MV E/A Ratio: 0.55 AV maxP.73 mmHg AV meanP.50 mmHg RAP: 5.00 mmHg RVSP: 21.14 mmHg FINDINGS -------- Resting bradycardia (HR<60bpm). This was a technically good study. The left ventricular size is normal. There is moderate concentric left ventricular hypertrophy. O verall left ventricular systolic function is normal with, an EF between 55 - 60 %. The right ventricle is mildly enlarged. LA is severely dilated >40 ml/m2 The right atrium is normal in size. There is mild aortic valve sclerosis. There is no evidence of aortic regurgitation. Mild aortic s tenosis with peak/mean pressure gradient of 15.73mmHg / 7.50mmHg , the aortic valve area by continuit y equation is 3.6cm. Peak/mean gradient across the Aortic Valve is 15.73mmHg / 7.50mmHg. Mild mitral annular calcification present. There is trace to mild mitral regurgitation. Mild tricuspid regurgitation present. Right ventricular systolic pressure is normal at < 35 mmHg. Trace/mild (physiologic) pulmonic regurgitation. The aortic root size is normal. Subcostals not available at this time There is no pericardial effusion. CONCLUSIONS -------- 1. Resting bradycardia (HR<60bpm). 2. This was a technically good study. 3. The left ventricular size is normal. 4. There is moderate concentric left ventricular hypertrophy. 5. Overall left ventricular systolic function is normal with, an EF between 55 - 60 %. 6. The right ventricle is mildly enlarged. 7. LA is severely dilated >40 ml/m2 8. The right atrium is normal in size. 9. There is mild aortic valve sclerosis. 10. There is no evidence of aortic regurgitation. 11. Peak/mean gradient across the Aortic Valve is 15.73mmHg / 7.50mmHg. 12. Mild mitral annular calcification present. 13. There is trace to mild mitral regurgitation. 14. Mild tricuspid regurgitation present. 15. Right ventricular systolic pressure is normal at < 35 mmHg. 16. Trace/mild (physiologic) pulmonic regurgitation. 17. The aortic root size is normal. 18. Subcostals not available at this time 19. There is no pericardial effusion. ASSOCIATE VETERINARIAN: Milena Dominguez RDCS
--- NOTE | 2017-03-07 09:48 | P.CONS ---
History of Present Illness - Reason for Consult Consult date: 03/07/17 Pancreatitis Requesting physician: Ellyn Cárdenas - History of Present Illness 76-year-old female recent exploratory laparotomy sigmoid resection colostomy secondary to cecal perforation January 2017. Patient presents with diffuse abdominal pain elevated amylase lipase. Consult requested for pancreatitis. Past medical history of memory impairment, chronic kidney disease stage III, seizure disorder, CVA with left-sided weakness, bipolar disorder. No history of alcoholism. No history of known autoimmune disorders. Patient's history taking is somewhat unreliable with her history of forgetfulness however she does states she had pancreatitis in the past but could not quantify when. Denies abuse of alcohol but socially drink wine to 2 mixed drinks on a weekly basis nothing more. CT abdomen and pelvis reported multiple air-fluid levels. No mentioning of abnormalities involving the pancreas gallbladder or bile ducts. No cholelithiasis. Liver unremarkable. She has been seen by general surgery with no surgical intervention plan. NG tube was placed and removed. Producing stool in colostomy bag. No history of pancreatitis. Admission lipase 1667 presently 733. Upon review of medical records lipase on 02/23/2017 was 1472 and improved to 489 before discharge. Amylase on admission 184 presently 146. Previously on 02/23/2017 was 194. LFTs within normal limits. White count 4.7. Hemoglobin 9.8. Creatinine 2.2. Review of Systems Constitutional: Denies fever, chills, sweats, weight gain, or loss. Memory impairment. HEENT: Negative for migraines, blurred vision or loss, earaches, drainage, tinnitus, oral mucosal lesions, dysphagia, or odynophagia. CARDIAC: CHF. Hypertension. Negative for chest pain, arrhythmias, or palpitation. RESPIRATORY: Negative for shortness of breath, hemoptysis, cough, or sputum production. GI: See HPI for pertinent findings. : Negative for hematuria, urgency, frequency, polyuria, or dysuria. GYNc: Denies possibility of . Negative vaginal discharge. MUSCULOSKELETAL: Negative for muscle aches, swelling, arthritis, and arthralgias. NEUROLOGIC: CVA with left-sided weakness. Seizure disorder. ENDOCRINE: Negative for thyroid problems. Nephrology: Chronic kidney disease. SKIN: Negative for rash or itching. PSYCHIATRIC: Bipolar depression. Past Medical History Past Medical History: Heart Failure, CVA/TIA, Hypertension, Memory Impairment, Renal Disease, Seizure Disorder Additional Past Medical History / Comment(s): CVAs with last one being in 2016 with generalized weakness/memory impairment, CKD stage IV, last seizure 2016, diverticular dx/benign polyps-recent EGD/colonoscopy with sigmoid perforation-has colostomy, IDC, hypothyroid, gout. History of Any Multi-Drug Resistant Organisms: None Reported Year Discovered:: None MDRO Source:: None Past Surgical History: Appendectomy, Cholecystectomy, Hysterectomy Additional Past Surgical History / Comment(s): 02/22/17 EGD/colonoscopy, exploratory laparotomy with lysis of adhesions/sigmoid colostomy. Past Anesthesia/Blood Transfusion Reactions: No Reported Reaction Smoking Status: Former smoker - Past Family History Father Family Medical History: Coronary Artery Disease (CAD), Thyroid Disorder Additional Family Medical History / Comment(s): father had quad. bypass. Grave' s disease Mother Family Medical History: Cancer, Dementia Additional Family Medical History / Comment(s): Alzheimer's, breast Cancer Medications and Allergies Home Medications Medication Instructions Recorded Confirmed Type Allopurinol [Zyloprim] 150 mg PO DAILY 11/10/16 03/06/17 History Furosemide [Lasix] 20 mg PO DAILY 11/10/16 03/06/17 History Levothyroxine Sodium 125 mcg PO DAILY 11/10/16 03/06/17 History NIFEdipine [NIFEdipine ER] 90 mg PO DAILY 11/10/16 03/06/17 History Spironolactone [Aldactone] 12.5 mg PO DAILY 11/10/16 03/06/17 History levETIRAcetam [Keppra] 500 mg PO Q12H 11/10/16 03/06/17 History Carvedilol [Coreg] 6.25 mg PO AC-BID #60 tab 11/14/16 03/06/17 Rx Melatonin 1 mg PO HS PRN tab 11/14/16 03/06/17 Rx cloNIDine HCL [Catapres] 0.2 mg PO BID #1 tablet 03/02/17 03/06/17 Rx hydrALAZINE HCL [Apresoline] 50 mg PO TID tab 03/02/17 03/06/17 Rx traMADol HCl [Ultram] 50 mg PO TID PRN #30 tab 03/02/17 03/06/17 Rx ALPRAZolam [Xanax] 0.25 mg PO Q12H PRN 03/06/17 03/06/17 History Sertraline [Zoloft] 12.5 mg PO DAILY 03/06/17 03/06/17 History Allergies Allergy/AdvReac Type Severity Reaction Status Date / Time iodine Allergy Rash/Hives Verified 03/06/17 07:16 latex Allergy Rash/Hives Verified 03/06/17 07:16 codeine AdvReac Nausea & Verified 03/06/17 07:16 Vomiting Physical Exam Vitals: Vital Signs Temp Pulse Resp BP Pulse Ox 03/07/17 07:00 97.9 F 56 L 16 175/77 97 03/06/17 22:51 97.4 F L 60 16 184/74 97 03/06/17 20:22 51 L 156/71 03/06/17 15:00 98.0 F 54 L 16 137/67 98 Intake and Output 03/06/17 03/07/17 03/07/17 22:59 06:59 14:59 Intake Total 1400 1200 Output Total 100 300 Balance 1300 900 Intake: Intake, IV Titration 1000 1000 Amount Sodium Chloride 0.9% 1, 1000 1000 000 ml @ 125 mls/hr IV . Q8H LINO Rx#:[id number] Oral 400 200 Output: Urine 300 Uretheral (Almendarez) 300 Stool 100 Other: Voiding Method Indwelling Catheter Indwelling Catheter # Voids 3 General appearance: The patient is alert, oriented, in no acute distress. HET: Head is normocephalic and atraumatic. Pupils are equal and reactive. Oropharynx is clear without lesions. Neck: Supple without lymphadenopathy. Trachea midline. Heart: S1 S2. Regular rate and rhythm. Lungs: No crackles or wheezes are heard. Abdomen: Soft, nontender, nondistended with bowel sounds. Colostomy with brown stool. No peritoneal signs. No palpable organomegaly or masses. Extremities: Normal skin color and turgor. No cyanosis, rash, ulceration, clubbing, or edema. Radial and pedal pulses are 2/4 bilaterally. Neurological: No focal deficits. Strength and sensation are grossly intact. Results CBC & Chem 7: 03/06/17 03:14 03/07/17 07:05 Labs: Abnormal Lab Results - Last 24 Hours (Table) 03/07/17 Range/Units 07:05 Sodium 131 L (137-145) mmol/L Carbon Dioxide 21 L (22-30) mmol/L BUN 27 H (7-17) mg/dL Creatinine 1.95 H (0.52-1.04) mg/dL Glucose 66 L (74-99) mg/dL Calcium 7.3 L (8.4-10.2) mg/dL Total Protein 3.7 L (6.3-8.2) g/dL Albumin 1.7 L (3.5-5.0) g/dL Amylase 146 H (30-110) U/L Lipase 733 H (23-300) U/L CT scan - abdomen: report reviewed (Dr. Amos) Assessment and Plan (1) Elevated amylase and lipase Narrative/Plan: Possible acute pancreatitis. 76-year-old female with recent bowel perforation undergoing exploratory laparotomy with colostomy presents with diffuse abdominal pain elevated amylase lipase with underlying chronic kidney disease stage III. Etiology of elevated amylase lipase could be multifactorial with recent bowel injury and delayed clearance of lipase secondary to elevated creatinine level. CT imaging of the abdomen and pelvis reported no obvious abnormalities of the pancreas or biliary tree. Hypertriglyceridemia cannot be excluded. Autoimmune pancreatitis could be within the differential. Current Visit: Yes Status: Acute Code(s): R74.8 - ABNORMAL LEVELS OF OTHER SERUM ENZYMES SNOMED Code(s): 167264896 Plan: 1. Recommend triglyceride level, VIANEY, IgG subclass 1-4. 2. Considering pancreatic enzymes are improving agreeable for discharge and can be followed up in the outpatient setting in the office in 2-3 weeks. Consideration for outpatient MRI/MRCP if pancreatic enzymes do not improve. 3. Repeat pancreatic enzymes 3-5 days. Thank you for this kind referral and the opportunity to participate in the care of your patient. This consultation was discussed with Dr. Amos. The impression and plan of care have been directed as dictated.
--- NOTE | 2017-03-07 11:55 | P.NPCON ---
History of Present Illness - Reason for Consult acute renal failure - History of Present Illness Reason for consultation: Acute kidney injury on chronic kidney disease History of present illness: Patient is a 76-year-old female seen in renal consultation for acute kidney injury on chronic kidney disease. Patient has chronic kidney disease stage III secondary to cardiorenal syndrome and nephrosclerosis with baseline creatinine near 2. Creatinine was 2.1 admission and is down to 1.95 today. Patient was recently admitted for a colonoscopy which was complicated by a perforation. She underwent exploratory laparotomy and colostomy. Subsequently she was discharged and was unable to keep anything down. She was also having abdominal pain for which she returned to the hospital. There was concern for acute pancreatitis as her lipase level was quite elevated as well as ileus. She still currently tolerating a full liquid diet. She denies abdominal pain. No vomiting or diarrhea. She is currently maintained on IV fluids running at 50 mL an hour. Denies use of NSAIDs. Vital signs are stable. General: The patient appeared well nourished and normally developed. HEENT: Head exam is unremarkable. Neck is without jugular venous distension. LUNGS: Lungs are clear to auscultation and percussion. Breath sounds decreased. HEART: Rate and Rhythm are regular. First and second heart sounds normal. No murmurs, rubs or gallops. ABDOMEN: Abdominal exam reveals normal bowel sounds. Non-tender and non- distended. No evidence of peritonitis. EXTREMITITES: No clubbing, cyanosis, or edema. Past Medical History Past Medical History: Heart Failure, CVA/TIA, Hypertension, Memory Impairment, Renal Disease, Seizure Disorder Additional Past Medical History / Comment(s): CVAs with last one being in 2016 with generalized weakness/memory impairment, CKD stage IV, last seizure 2016, diverticular dx/benign polyps-recent EGD/colonoscopy with sigmoid perforation-has colostomy, IDC, hypothyroid, gout. History of Any Multi-Drug Resistant Organisms: None Reported Date of last positivie culture/infection: None MDRO Source:: None Past Surgical History: Appendectomy, Cholecystectomy, Hysterectomy Additional Past Surgical History / Comment(s): 02/22/17 EGD/colonoscopy, exploratory laparotomy with lysis of adhesions/sigmoid colostomy. Past Anesthesia/Blood Transfusion Reactions: No Reported Reaction Smoking Status: Former smoker - Past Family History Father Family Medical History: Coronary Artery Disease (CAD), Thyroid Disorder Additional Family Medical History / Comment(s): father had quad. bypass. Grave' s disease Mother Family Medical History: Cancer, Dementia Additional Family Medical History / Comment(s): Alzheimer's, breast Cancer Medications and Allergies Home Medications Medication Instructions Recorded Confirmed Type Allopurinol [Zyloprim] 150 mg PO DAILY 11/10/16 03/06/17 History Furosemide [Lasix] 20 mg PO DAILY 11/10/16 03/06/17 History Levothyroxine Sodium 125 mcg PO DAILY 11/10/16 03/06/17 History NIFEdipine [NIFEdipine ER] 90 mg PO DAILY 11/10/16 03/06/17 History Spironolactone [Aldactone] 12.5 mg PO DAILY 11/10/16 03/06/17 History levETIRAcetam [Keppra] 500 mg PO Q12H 11/10/16 03/06/17 History Carvedilol [Coreg] 6.25 mg PO AC-BID #60 tab 11/14/16 03/06/17 Rx Melatonin 1 mg PO HS PRN tab 11/14/16 03/06/17 Rx cloNIDine HCL [Catapres] 0.2 mg PO BID #1 tablet 03/02/17 03/06/17 Rx hydrALAZINE HCL [Apresoline] 50 mg PO TID tab 03/02/17 03/06/17 Rx traMADol HCl [Ultram] 50 mg PO TID PRN #30 tab 03/02/17 03/06/17 Rx ALPRAZolam [Xanax] 0.25 mg PO Q12H PRN 03/06/17 03/06/17 History Sertraline [Zoloft] 12.5 mg PO DAILY 03/06/17 03/06/17 History Allergies Allergy/AdvReac Type Severity Reaction Status Date / Time iodine Allergy Rash/Hives Verified 03/06/17 07:16 latex Allergy Rash/Hives Verified 03/06/17 07:16 codeine AdvReac Nausea & Verified 03/06/17 07:16 Vomiting Physical Exam Vitals: Vital Signs Temp Pulse Resp BP Pulse Ox 03/07/17 08:00 56 L 16 03/07/17 07:00 97.9 F 56 L 16 175/77 97 01/09/18 22:51 97.4 F L 60 16 184/74 97 03/06/17 20:22 51 L 156/71 03/06/17 15:00 98.0 F 54 L 16 137/67 98 Intake and Output 03/06/17 03/07/17 03/07/17 22:59 06:59 14:59 Intake Total 1400 1200 500 Output Total 100 300 Balance 1300 900 500 Intake: Intake, IV Titration 1000 1000 Amount Sodium Chloride 0.9% 1, 1000 1000 000 ml @ 125 mls/hr IV . Q8H LINO Rx#:[id number] Oral 400 200 500 Output: Urine 300 Uretheral (Almednarez) 300 Stool 100 Other: Voiding Method Indwelling Catheter Indwelling Catheter Indwelling Catheter # Voids 3 Results - Lab Results Most recent lab results Calcium 7.3 mg/dL (8.4-10.2) L 03/07/17 07:05 03/06/17 03:14 03/07/17 07:05 Assessment and Plan Plan: Assessment: #1. Nonoliguric acute kidney injury mostly prerenal due to poor oral intake. Improved with IV hydration. Creatinine was 2.1 admission and is down to 1.95 today. #2. Hypovolemic hyponatremia improved with IV hydration. #3. Abdominal pain possibly due to acute pancreatitis versus ileus. Gen. surgery and gastroenterology following. Improved. #4. Mild metabolic acidosis secondary to acute kidney injury as well as IV fluids. #5. Chronic kidney disease stage III secondary to cardiorenal syndrome and nephrosclerosis with baseline creatinine near 2. #6. Recent colonoscopy with perforation status post exploratory laparotomy with colostomy. Plan: Continue with normal saline at 50 mL an hour. Encourage oral intake as able to tolerate. Avoid nephrotoxic agents and hypotensive episodes. Potential discharge today. She will need to follow-up as an outpatient in the next 1-2 weeks. Thank you for the consultation. I will continue to follow the patient with you during her hospital stay.
--- NOTE | 2017-03-07 19:54 | PN ---
PROGRESS NOTE DATE OF SERVICE: 03/17/2017. ATTENDING NOTE: This patient was seen and examined by me. I discussed the case with the nurse practitioner Ms. Ross. Patient was admitted with acute pancreatitis, acute renal failure and chronic kidney disease. Abdominal pain is better. Did tolerate some diet. Colostomy bag is working. PHYSICAL EXAMINATION: Temperature 98, pulse 54, respiration 16, blood pressure 137/67, pulse ox 92% on room air. Lying in bed, tired-appearing. ABDOMEN: Some tenderness present. No guarding or rigidity. Colostomy bag is working. PSYCH: Alert and oriented x3. INVESTIGATIONS: Potassium 4.5, sodium 131. BUN 27, 1.95. Amylase 146, lipase 733. ASSESSMENT: 1. Acute pancreatitis, idiopathic, slowly improving. 2. Acute renal failure, likely prerenal, from decreased oral intake and patient being on diuretics. 3. Chronic kidney disease, stage III. 4. Hyponatremia; suspect hypo-osmolar. PLAN: Patient will be kept on a full-liquid diet. Advance diet as tolerated. Keep IV fluids. Repeat labs in the morning. MMODL / IJN: [id number] /
--- NOTE | 2017-03-07 20:02 | P.PN ---
Progress Note - Text Progress Note Date: 03/07/17 DATE OF SERVICE: 03/07/2017 PRESENTING COMPLAINT: nausea and abdominal pain HISTORY OF PRESENT ILLNESS: 76-year-old female who presented with nausea abdominal discomfort felt to be an early bowel obstruction, NG tube was placed. Admitted for the same surgical consult placed. INTERVAL HISTORY: 03/07/2017: lying in bed mildly anxious appearing continues to complain of mild abdominal pain on palpation. Otherwise feels good, colostomy working liquid brown stool noted in the bag. Tolerating full liquid diet, up with assistance.GI to see the patient this morning.lipase elevated but improving. REVIEW OF SYSTEMS: Done for constitutional ,cardiovascular, GI, pulmonary with relevant findings as above. CURRENT MEDICATIONS Zyloprim, Xanax, Coreg, Catapres, Pepcid, Apresoline, Keppra, Synthroid,morphine , Narcan, Procardia, Zofran, Zoloft, Ultram. PHYSICAL EXAM VITAL SIGNS: temperature 98.0, pulse 56, respiratory rate 16, blood pressure 117/56, oxygen saturation 97% on room air. GENERAL APPEARANCE: thin build. Lying in bed, not in distress. HEENT: Normocephalic, Pupils equal. Conjunctiva normal. JVD not raised. Mass not palpable.: RESPIRATORY: Respiratory effort normal. Lungs clear to auscultation. CARDIOVASCULAR: First and second sounds normal. No edema. ABDOMEN: Soft. Liver and spleen not palpable.mild tenderness . No mass palpable , colostomy bag to the left lower quadrant with brown stool noted. PSYCHIATRY: Alert and oriented x3. Mood and affect normal. INVESTIGATIONS: sodium 131, carbon dioxide 21, BUN 27, creatinine 1.95, amylase 146, lipase 733. 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 -Hyponatremia, suspect hypoosmolar. -Acute small bowel obstruction patient who is sick recent sigmoid resection and colostomy for sigmoid perforation. -Chronic seizure disorder. -Essential hypertension. 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 -Hypothyroidism. -Primary osteoarthritis of multiple joints. -Chronic urinary stress incontinence. -Bipolar disorder. PLAN: pancreatic enzymes are improving patient should follow-up with GI,continue fluids and encourage by mouth intake, discharge planning in the next 24 hours. Plan of care discussed with the patient the bedside she is in agreement. We will follow closely. BATCH AND FURNACE OPERATOR statement: Patient was seen and examined by nurse practitioner Nichelle Ross and all elements of the case discussed with attending Dr. De Guzman
[2017-03-07] MEDS: ALPRAZolam 0.25 MG TAB PO PRN (20:22)
[2017-03-08] MEDS: hydrALAZINE HCL 50 MG TAB PO SCH ×4 (02:03→22:06)
[2017-03-08] MEDS: SODIUM CHLORIDE 0.9% 1,000 ML IV SCH ×2 (05:30→08:37)
[2017-03-08] MEDS: levETIRAcetam 500 MG TAB PO SCH ×2 (05:30→17:45)
[2017-03-08] MEDS: LEVOTHYROXINE 125 MCG TAB PO SCH (05:30)
[2017-03-08 08:34] LABS: Calcium 7.5 mg/dL (8.4-10.2)
[2017-03-08] MEDS: cloNIDine HCL 0.2 MG TAB PO SCH ×2 (08:36→20:38)
[2017-03-08] MEDS: ALLOPURINOL 300 MG TAB PO SCH (08:36)
[2017-03-08] MEDS: CARVEDILOL 6.25 MG TAB PO SCH ×2 (08:37→17:44)
[2017-03-08] MEDS: FAMOTIDINE 20 MG/2 ML VIAL IV SCH (08:37)
[2017-03-08] MEDS: SERTRALINE 25 MG TAB PO SCH (08:37)
[2017-03-08] MEDS: NIFEdipine XL 90 MG TAB.ER.24 PO SCH (08:37)
[2017-03-08 09:15] LABS: Potassium 4.2 mmol/L (3.5-5.1)
--- NOTE | 2017-03-08 10:13 | P.PN ---
Subjective Progress Note Date: 03/08/17 76-year-old female seen and examined resting in bed eyes closed arousable to verbal stimuli chief complaint "tired out this morning did not get any sleep" ostomy left lower quadrant green liquid stool noted in ostomy bag. Patient reportedly is tolerating a full liquid diet. Patients being followed by nephrology and gastroenterology service. Recommendations noted appreciated and reviewed no nausea no vomiting lipase this morning 1466. Lipase day before 733. Objective - Vital Signs Vital signs: Vital Signs Temp 99.1 F 03/08/17 07:00 Pulse 80 03/08/17 07:00 Resp 18 03/08/17 07:00 BP 131/66 03/08/17 07:00 Pulse Ox 97 03/08/17 07:00 Intake & Output 03/07/17 03/08/17 03/08/17 18:59 06:59 18:59 Intake Total 1375 1790 Output Total 350 650 Balance 1025 1140 Weight 78.471 kg Intake: Intake, IV Titration 875 1000 Amount Sodium Chloride 0.9% 1, 875 1000 000 ml @ 125 mls/hr IV . Q8H [facility] Rx#:[id number] Oral 500 790 Output: Urine 350 550 Uretheral (Almendarez) 350 550 Stool 100 Other: Voiding Method Indwelling Catheter Indwelling Catheter - Exam physical exam 76-year-old female resting in bed appears in no acute distress Lungs adequate air movement bilaterally on room air sats 97% Heart S1-S2 audible regular denying chest pain Abdomen surgical site suture line well approximated no redness ostomy left lower quadrant moderate amount of green liquid stool in ostomy bag indwelling Almendarez catheter in place currently taking full liquid diet no nausea no vomiting states abdominal pain resolved Extremities no edema noted - Labs CBC & Chem 7: 03/06/17 03:14 03/08/17 07:30 Labs: Abnormal Lab Results - Last 24 Hours (Table) 03/08/17 Range/Units 07:30 Sodium 132 L (137-145) mmol/L Carbon Dioxide 20 L (22-30) mmol/L BUN 24 H (7-17) mg/dL Creatinine 1.95 H (0.52-1.04) mg/dL Calcium 7.5 L (8.4-10.2) mg/dL Amylase 241 H (30-110) U/L Lipase 1466 H (23-300) U/L Assessment and Plan Assessment: Impression Present on admission hyponatremia Present on admission elevated lipase suspect pancreatitis Present on admission abdominal pain unclear etiology History of a recent February 23 abdominal pain likely due to diverticular perforation with a moderate amount of free air underwent exploratory laparotomy repair serosal tear in the cecum, sigmoid resection and sigmoid colostomy Chronic kidney disease stage III likely due to hypertensive nephrosclerosis History of a seizure disorder CVA by history Gait dysfunction secondary to a recent stroke Plan No evidence of an acute surgical abdomen at this time Consult GI service for the elevated lipase await recommendations IV fluid for hydration DVT and GI prophylaxis Ostomy care PT OT eval Repeat labs in the morning Further recommendations pending will follow surgical course addressing issues as they arise Dictating the note for Dr. Kat The above impression and plan of care have been discussed and directed by signing physician. Chloé Turcios nurse practitioner acting as scribe for signing physician.year
--- NOTE | 2017-03-08 10:16 | P.PN ---
Subjective Progress Note Date: 03/08/17 Principal diagnosis: Abdominal pain Reevaluated today in regards to elevated amylase lipase possible pancreatitis. Amylase increased to 241. Lipase 1466 per patient reports minimal abdominal discomfort. Autoimmune serologic workup initiated yesterday for pancreatitis. VIANEY screen negative. Triglycerides 119. Afebrile. Objective - Vital Signs Vital signs: Vital Signs Temp 99.1 F 03/08/17 07:00 Pulse 80 03/08/17 07:00 Resp 18 03/08/17 07:00 BP 131/66 03/08/17 07:00 Pulse Ox 97 03/08/17 07:00 Intake & Output 03/07/17 03/08/17 03/08/17 18:59 06:59 18:59 Intake Total 1375 1790 Output Total 350 650 Balance 1025 1140 Weight 78.471 kg Intake: Intake, IV Titration 875 1000 Amount Sodium Chloride 0.9% 1, 875 1000 000 ml @ 125 mls/hr IV . Q8H [facility] Rx#:[id number] Oral 500 790 Output: Urine 350 550 Uretheral (Almendarez) 350 550 Stool 100 Other: Voiding Method Indwelling Catheter Indwelling Catheter - Exam General appearance: The patient is alert, oriented, in no acute distress. HET: Head is normocephalic and atraumatic. Pupils are equal and reactive. Oropharynx is clear without lesions. Neck: Supple without lymphadenopathy. Trachea midline. Heart: S1 S2. Regular rate and rhythm. Lungs: No crackles or wheezes are heard. Abdomen: Soft, nontender, nondistended with bowel sounds. Colostomy with brown stool. Minimal diffuse abdominal tenderness across mid to upper abdomen No peritoneal signs. No palpable organomegaly or masses. Extremities: Left-sided weakness Neurological: No focal deficits. Strength and sensation are grossly intact. - Labs CBC & Chem 7: 03/06/17 03:14 03/08/17 07:30 Labs: Abnormal Lab Results - Last 24 Hours (Table) 03/08/17 Range/Units 07:30 Sodium 132 L (137-145) mmol/L Carbon Dioxide 20 L (22-30) mmol/L BUN 24 H (7-17) mg/dL Creatinine 1.95 H (0.52-1.04) mg/dL Calcium 7.5 L (8.4-10.2) mg/dL Amylase 241 H (30-110) U/L Lipase 1466 H (23-300) U/L Assessment and Plan (1) Elevated amylase and lipase Narrative/Plan: Possible acute pancreatitis. 76-year-old female with recent bowel perforation undergoing exploratory laparotomy with colostomy presents with diffuse abdominal pain elevated amylase lipase with underlying chronic kidney disease stage III. Etiology of elevated amylase lipase could be multifactorial with recent bowel injury and delayed clearance of lipase secondary to elevated creatinine level. CT imaging of the abdomen and pelvis reported no obvious abnormalities of the pancreas or biliary tree. Hypertriglyceridemia cannot be excluded. Autoimmune pancreatitis could be within the differential. Current Visit: Yes Status: Acute Code(s): R74.8 - ABNORMAL LEVELS OF OTHER SERUM ENZYMES SNOMED Code(s): 365086454 Plan: 1. CA-19-9 marker. 2. MRI pancreas. Possible outpatient EUS. 3. Continue to observe. We'll continue to follow. Assessment and plan a care discussed with Dr. Amos
[2017-03-08] MEDS: traMADol 50 MG TAB PO PRN (12:51)
--- NOTE | 2017-03-08 13:52 | PN ---
PROGRESS NOTE The patient is seen for followup for chronic kidney disease. She was admitted to the hospital with nausea and vomiting. Not feeling well. Her lipase is elevated. The patient is maintained on IV fluids. Her renal function is at baseline. EXAMINATION: Blood pressure is 131/66, heart rate 80 per minute. She is afebrile. Examination of the heart: S1 and S2. Examination of lungs: Breath sounds are heard. Abdomen is soft. There is tenderness noted in the midabdomen tension. Lower extremities shows no significant edema. LABS: Sodium 132, potassium 4.2, BUN 22, serum creatinine 1.95. UA shows 1+ protein, WBCs 25. ASSESSMENT: 1. Chronic kidney disease and NKF, stage IV. Renal function at baseline. 2. Acute pancreatitis following recent surgery. 3. Status post exploratory lap and repair of serosal tear in the cecum, sigmoid resection and sigmoid colostomy on February 23. 4. History of cerebrovascular accident. PLAN: Continue IV fluids. Encourage increased oral intake when cleared by GI/Surgery. Continue to avoid nephrotoxic agents. Avoid hypotension. Blood pressure currently is not low. May continue current antihypertensive medications including Procardia and hydralazine and Coreg. MMODL / IJN: [id number] /
[2017-03-08] MEDS: DEXTROSE 5%-0.45% NACL 1,000 ML IV SCH ×2 (14:40→22:06)
--- NOTE | 2017-03-08 15:49 | P.PN ---
Progress Note - Text Progress Note Date: 03/08/17 DATE OF SERVICE: 03/08/2017 PRESENTING COMPLAINT: nausea and abdominal pain HISTORY OF PRESENT ILLNESS: 76-year-old female who presented with nausea abdominal discomfort felt to be an early bowel obstruction, NG tube was placed. Admitted for the same surgical consult placed. INTERVAL HISTORY: 03/08/2017: Lying in bed appears comfortable but somewhat anxious. Complains of mild abdominal pain on palpation. Liver enzymes have gone back up, patient made nothing by mouth, no nausea and vomiting. Autoimmune serologic workup in place by GI, MRI ordered by GI as well however had to be canceled due to patient has ken and cannot have an MRI. colostomy working well stool noted in the bag. Up with assistance, GI and surgery continue to follow the patient. 03/07/2017: lying in bed mildly anxious appearing continues to complain of mild abdominal pain on palpation. Otherwise feels good, colostomy working liquid brown stool noted in the bag. Tolerating full liquid diet, up with assistance.GI to see the patient this morning.lipase elevated but improving. REVIEW OF SYSTEMS: Done for constitutional ,cardiovascular, GI, pulmonary with relevant findings as above. CURRENT MEDICATIONS Zyloprim, Xanax, Coreg, Catapres, Pepcid, Apresoline, Keppra, Synthroid,morphine , Narcan, Procardia, Zofran, Zoloft, Ultram. PHYSICAL EXAM VITAL SIGNS: Temperature 99.1, pulse 80, respiratory rate 18, blood pressure 131/66, oxygen saturation 97% on room air. GENERAL APPEARANCE: thin build. Lying in bed, not in distress. HEENT: Normocephalic, Pupils equal. Conjunctiva normal. JVD not raised. Mass not palpable.: RESPIRATORY: Respiratory effort normal. Lungs clear to auscultation. CARDIOVASCULAR: First and second sounds normal. No edema. ABDOMEN: Soft. Liver and spleen not palpable.mild tenderness . No mass palpable , colostomy bag to the left lower quadrant with brown stool noted. PSYCHIATRY: Alert and oriented x3. Mood and affect normal. INVESTIGATIONS: Sodium 132, BUN 24, creatinine 1.95, amylase 241, lipase of 1466. VIANEY screen negative ASSESSMENT: - acute pancreatitis, idiopathic, worsening -Acute renal failure probably prerenal from decreased oral intake and patient being on diuretics, improving -Acute on chronic anemia with no overt signs of bleeding -Chronic kidney disease stage III from hypertensive nephrosclerosis. -Hyponatremia, suspect hypoosmolar. -Acute small bowel obstruction patient who is sick recent sigmoid resection and colostomy for sigmoid perforation. -Chronic seizure disorder. -Essential hypertension. 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 -Hypothyroidism. -Primary osteoarthritis of multiple joints. -Chronic urinary stress incontinence. -Bipolar disorder. PLAN: pancreatic enzymes are worsening, continue nothing by mouth status and IV fluids , MRI not to be done due to ken in a previous surgery . Monitor hemoglobin daily. Should follow-up with GI outpatient for endoscopic ultrasound. Plan of care discussed with the patient the bedside she is in agreement. We will follow closely. DOCK BUILDER statement: Patient was seen and examined by nurse practitioner Nichelle Ross and all elements of the case discussed with attending Dr. De Guzman
[2017-03-08] MEDS: cefTRIAXone IN SWFI 1,000 MG/10 ML SYRINGE IVP SCH (19:40)
--- NOTE | 2017-03-08 23:40 | PN ---
PROGRESS NOTE DATE OF SERVICE: 03/08/2017. ATTENDING NOTE: The patient seen and examined by me. I discussed with my nurse practitioner, Ms. Ross. Patient admitted with acute pancreatitis, is getting better again. Abdominal pain became worse and actually pancreatic enzymes have gone up. The patient's diet has been scaled back. EXAMINATION: Afebrile, pulse 87, respirations 18, blood pressure 130/66, pulse ox 97% on room air. ABDOMEN: Upper abdominal tenderness. No guarding or rigidity. Patient is tired- appearing. INVESTIGATIONS: Potassium 4.2, BUN 24, creatinine 1.95. Amylase 241, lipase 1466. ASSESSMENT: 1. Acute pancreatitis, slow to respond. 2. Acute small-bowel obstruction, clinically improved. Colostomy bag is working. PLAN: Patient will be scaled back to clear liquids. Care was discussed with the patient. Continue with IV fluids. Repeat labs in the morning. Follow. MMODL / IJN: [id number] /
[2017-03-09] MEDS: traMADol 50 MG TAB PO PRN ×3 (01:13→22:18)
[2017-03-09] MEDS: levETIRAcetam 500 MG TAB PO SCH ×2 (05:51→19:26)
[2017-03-09] MEDS: DEXTROSE 5%-0.45% NACL 1,000 ML IV SCH ×3 (05:51→23:26)
[2017-03-09] MEDS: LEVOTHYROXINE 125 MCG TAB PO SCH (05:52)
[2017-03-09 07:55] LABS: Calcium 7.6 mg/dL (8.4-10.2); Potassium 4.2 mmol/L (3.5-5.1)
[2017-03-09] MEDS: cloNIDine HCL 0.2 MG TAB PO SCH (08:28)
[2017-03-09] MEDS: hydrALAZINE HCL 50 MG TAB PO SCH ×2 (08:28→17:27)
[2017-03-09] MEDS: FAMOTIDINE 20 MG/2 ML VIAL IV SCH (08:28)
[2017-03-09] MEDS: ALLOPURINOL 300 MG TAB PO SCH (08:28)
[2017-03-09] MEDS: CARVEDILOL 6.25 MG TAB PO SCH ×3 (08:29→21:47)
[2017-03-09] MEDS: SERTRALINE 25 MG TAB PO SCH (08:29)
[2017-03-09] MEDS: NIFEdipine XL 90 MG TAB.ER.24 PO SCH (08:52)
[2017-03-09 09:24] LABS: Basophils % (A) 0 %; Eosinophils # (A) 0.1 k/uL (0-0.7); Eosinophils % (A) 2 %; HCT 22.8 % (34.0-46.0); Lymphocytes # (A) 0.5 k/uL (1.0-4.8); Lymphocytes % (A) 7 %; MCH 28.8 pg (25.0-35.0); MCHC 32.7 g/dL (31.0-37.0); MCV 88.1 fL (80.0-100.0); Mean Platelet Volume 8.2; Monocytes # (A) 0.3 k/uL (0-1.0); Monocytes % (A) 5 %; Neutrophils # (A) 5.6 k/uL (1.3-7.7); Neutrophils % (A) 85 %; Platelet Count 294 k/uL (150-450); RBC 2.59 m/uL (3.80-5.40); RDW 14.5 % (11.5-15.5); WBC 6.6 k/uL (3.8-10.6)
[2017-03-09 09:33] LABS: HGB 7.5 gm/dL (11.4-16.0)
--- NOTE | 2017-03-09 11:19 | P.PN ---
Subjective Progress Note Date: 03/09/17 Principal diagnosis: Abdominal pain Reevaluated today in regards to elevated pancreatic enzymes. Enzymes relatively unchanged from yesterday. CA-19-9 47.2. MRI pancreas attempted yesterday but canceled secondary to recent exploratory laparotomy with metallic stapling. MRI postpone 6-8 weeks per protocol. Patient reports minimal abdominal discomfort this morning. Autoimmune serologic workup so far unremarkable. Afebrile. Objective - Vital Signs Vital signs: Vital Signs Temp 99.7 F H 03/09/17 07:00 Pulse 76 03/09/17 07:00 Resp 16 03/09/17 07:00 BP 120/65 03/09/17 07:00 Pulse Ox 96 03/09/17 07:00 Intake & Output 03/08/17 03/09/17 03/09/17 18:59 06:59 18:59 Intake Total 440 2150 Output Total 350 Balance 440 1800 Weight 78.471 kg Intake: Intake, IV Titration 1550 Amount Dextrose 5%-0.45% NaCl 1, 1550 000 ml @ 125 mls/hr IV . Q8H [facility] Rx#:[id number] Oral 440 600 Output: Urine 350 Other: Voiding Method Indwelling Catheter Indwelling Catheter Indwelling Catheter # Voids 1 - Exam General appearance: The patient is alert, oriented, in no acute distress. HET: Head is normocephalic and atraumatic. Pupils are equal and reactive. Oropharynx is clear without lesions. Neck: Supple without lymphadenopathy. Trachea midline. Heart: S1 S2. Regular rate and rhythm. Lungs: No crackles or wheezes are heard. Abdomen: Soft, nontender, nondistended with bowel sounds. Colostomy replace no stool in bag air present. Minimal diffuse abdominal tenderness across mid to upper abdomen No peritoneal signs. No palpable organomegaly or masses. Extremities: Left-sided weakness Neurological: No focal deficits. Strength and sensation are grossly intact. - Labs CBC & Chem 7: 03/09/17 07:00 03/09/17 07:00 Labs: Abnormal Lab Results - Last 24 Hours (Table) 03/07/17 03/08/17 03/09/17 Range/Units 07:05 07:30 07:00 RBC (3.80-5.40) m/uL Hgb (11.4-16.0) gm/dL Hct (34.0-46.0) % Lymphocytes # (1.0-4.8) k/uL Sodium 130 L (137-145) mmol/L Carbon Dioxide 18 L (22-30) mmol/L BUN 23 H (7-17) mg/dL Creatinine 2.18 H (0.52-1.04) mg/dL Plasma Lactic Acid Fernando (0.7-2.0) mmol/L Calcium 7.6 L (8.4-10.2) mg/dL Amylase 294 H (30-110) U/L Lipase 1504 H (23-300) U/L CA 19-9 Antigen 47.2 H (0.0-34.9) U/mL IgG1 367.0 L (405.0-1011.0) mg/dL 03/09/17 03/09/17 Range/Units 07:00 09:44 RBC 2.59 L (3.80-5.40) m/uL Hgb 7.5 L D (11.4-16.0) gm/dL Hct 22.8 L (34.0-46.0) % Lymphocytes # 0.5 L (1.0-4.8) k/uL Sodium (137-145) mmol/L Carbon Dioxide (22-30) mmol/L BUN (7-17) mg/dL Creatinine (0.52-1.04) mg/dL Plasma Lactic Acid Fernando 0.6 L (0.7-2.0) mmol/L Calcium (8.4-10.2) mg/dL Amylase (30-110) U/L Lipase (23-300) U/L CA 19-9 Antigen (0.0-34.9) U/mL IgG1 (405.0-1011.0) mg/dL Assessment and Plan (1) Elevated amylase and lipase Narrative/Plan: Possible acute pancreatitis. 76-year-old female with recent bowel perforation undergoing exploratory laparotomy with colostomy presents with diffuse abdominal pain elevated amylase lipase with underlying chronic kidney disease stage III. Etiology of elevated amylase lipase could be multifactorial with recent bowel injury and delayed clearance of lipase secondary to elevated creatinine level. CT imaging of the abdomen and pelvis reported no obvious abnormalities of the pancreas or biliary tree. Hypertriglyceridemia cannot be excluded. Autoimmune pancreatitis could be within the differential. Current Visit: Yes Status: Acute Code(s): R74.8 - ABNORMAL LEVELS OF OTHER SERUM ENZYMES SNOMED Code(s): 861139728 Plan: 1. Dr. Amos recommends outpatient MRI 6-8 weeks. Consideration for outpatient EUS. Presently patient is with minimal abdominal discomfort afebrile. 2. Reevaluate in office 1-2 weeks with repeat pancreatic enzymes outpatient setting 5-7 days. 3. We'll defer to general surgery for further recommendations. Discharge per medicine. Assessment and plan of care discussed with Dr. Amos
--- NOTE | 2017-03-09 14:07 | P.PN ---
Subjective Progress Note Date: 03/09/17 76-year-old currently seen and evaluated resting in bed. Patient points to the midepigastric area as to the reference point to where the discomfort is. Patient states it radiates down to the left lower quadrant. Moderate amount of liquid brown stool in ostomy bag labs reviewed this morning hemoglobin down to 7.5 creatinine up to 2. 1. lipase is up to 1504 CA 19 9 elevated 47.2 amylase 294. Patient reports feeling tired out with no appetite no reports of nausea vomiting Temp this morning 99.7 white count 6.6 The MRI of the pancreas currently is on hold for the next 6-8 weeks secondary to patient's recent exploratory laparotomy with stapling Objective - Vital Signs Vital signs: Vital Signs Temp 99.7 F H 03/09/17 07:00 Pulse 76 03/09/17 07:00 Resp 16 03/09/17 07:00 BP 120/65 03/09/17 07:00 Pulse Ox 96 03/09/17 07:00 Intake & Output 03/08/17 03/09/17 03/09/17 18:59 06:59 18:59 Intake Total 440 2150 Output Total 350 Balance 440 1800 Weight 78.471 kg Intake: Intake, IV Titration 1550 Amount Dextrose 5%-0.45% NaCl 1, 1550 000 ml @ 125 mls/hr IV . Q8H [facility] Rx#:[id number] Oral 440 600 Output: Urine 350 Other: Voiding Method Indwelling Catheter Indwelling Catheter Indwelling Catheter # Voids 1 - Exam physical exam 76-year-old female frail looking older than stated age resting in bed appears in no acute distress Lungs adequate air movement bilaterally on room air sats 97% Heart S1-S2 audible regular denying chest pain Abdomen surgical site suture line well approximated no redness ostomy left lower quadrant moderate amount of green liquid stool in ostomy bag indwelling Almendarez catheter in place currently reports no appetite no nausea no vomiting states abdominal pain resolved patient states has mid epigastric pain Extremities no edema noted - Labs CBC & Chem 7: 03/09/17 07:00 03/09/17 07:00 Labs: Abnormal Lab Results - Last 24 Hours (Table) 03/07/17 03/08/17 03/09/17 Range/Units 07:05 07:30 07:00 RBC (3.80-5.40) m/uL Hgb (11.4-16.0) gm/dL Hct (34.0-46.0) % Lymphocytes # (1.0-4.8) k/uL Sodium 130 L (137-145) mmol/L Carbon Dioxide 18 L (22-30) mmol/L BUN 23 H (7-17) mg/dL Creatinine 2.18 H (0.52-1.04) mg/dL Plasma Lactic Acid Fernando (0.7-2.0) mmol/L Calcium 7.6 L (8.4-10.2) mg/dL Amylase 294 H (30-110) U/L Lipase 1504 H (23-300) U/L CA 19-9 Antigen 47.2 H (0.0-34.9) U/mL IgG1 367.0 L (405.0-1011.0) mg/dL 03/09/17 03/09/17 Range/Units 07:00 09:44 RBC 2.59 L (3.80-5.40) m/uL Hgb 7.5 L D (11.4-16.0) gm/dL Hct 22.8 L (34.0-46.0) % Lymphocytes # 0.5 L (1.0-4.8) k/uL Sodium (137-145) mmol/L Carbon Dioxide (22-30) mmol/L BUN (7-17) mg/dL Creatinine (0.52-1.04) mg/dL Plasma Lactic Acid Fernando 0.6 L (0.7-2.0) mmol/L Calcium (8.4-10.2) mg/dL Amylase (30-110) U/L Lipase (23-300) U/L CA 19-9 Antigen (0.0-34.9) U/mL IgG1 (405.0-1011.0) mg/dL Assessment and Plan Assessment: Impression Present on admission hyponatremia Present on admission elevated lipase suspect pancreatitis Present on admission abdominal pain unclear etiology History of a recent February 23 abdominal pain likely due to diverticular perforation with a moderate amount of free air underwent exploratory laparotomy repair serosal tear in the cecum, sigmoid resection and sigmoid colostomy Chronic kidney disease stage III likely due to hypertensive nephrosclerosis History of a seizure disorder CVA by history Gait dysfunction secondary to a recent stroke elevated ca 19-9 suspect possible malginancy Plan No evidence of an acute surgical abdomen at this time GI service recommends outpatient MRI in 6-8 weeks with consideration of outpatient EUS GI service recommends outpatient pancreatic enzymes to be repeated in one week IV fluid for hydration DVT and GI prophylaxis Ostomy care PT OT eval Repeat labs in the morning Further recommendations pending will follow surgical course addressing issues as they arise will do ct adbomen and pelvis with oral contast now Dictating the note for Dr. Kat The above impression and plan of care have been discussed and directed by signing physician. Chloé Turcios nurse practitioner acting as scribe for signing physician.[email or web address]
[2017-03-09] MEDS ORDERED: IOHEXOL 350 MG/ML 25 ML BOTTLE (ORAL USE) PO PRN (14:54)
[2017-03-09] MEDS ORDERED: BARIUM SULFATE 450 ML ORAL.SUSP BOTTLE PO ONE (15:28)
[2017-03-09] MEDS ORDERED: BARIUM SULFATE 450 ML ORAL.SUSP BOTTLE PO PRN (15:31)
--- NOTE | 2017-03-09 15:51 | P.PN ---
Progress Note - Text Progress Note Date: 03/09/17 The patient is a 76-year-old white female who is status post exploratory laparotomy and Chauhan's procedure performed for an acute abdomen with free air and a presumed diverticular perforation. The patient has a long medical history including heart disease multiple CVAs and renal disease. The patient initially was discharged to a outpatient facility but returned with a complaint of abdominal discomfort. Since her hospitalization she had been tolerating a diet and her ostomy had been working well. She did not have any leukocytosis. She does however continue to complain of some right-sided abdominal discomfort and today has decreased ostomy output. Her lipase was noted to be elevated and additionally CA-19-9 is noted to be elevated. She has been seen and evaluated by GI for this. Secondary to her persistent complaint of abdominal discomfort and decreased ostomy output today we have considered doing a CAT scan of the abdomen. Physical examination this afternoon: Patient is resting comfortably denies any abdominal pain Ostomy pink incision clean and dry Abdomen is soft but with some mild persistant tenderness to palpation in the right lower quadrant and midepigastric area Impression/plan: 1. The case has been discussed in detail with Dr. Amos from GI at this time we are treating her conservatively patient does not have a acute surgical problem identified 2. The case will be discussed with Dr. De Guzman 3. A CAT scan has been ordered to assure that there is no evidence of any obstructive change
[2017-03-09] MEDS: BARIUM SULFATE 450 ML ORAL.SUSP BOTTLE PO PRN ×2 (15:55→16:55)
--- NOTE | 2017-03-09 17:35 | PN ---
PROGRESS NOTE Patient is seen for followup for chronic kidney disease. She is currently lying in bed, comfortable. She is not in any acute distress. The patient's abdominal pain has improved. She is maintained on IV fluids at 125 mL/ hour. On examination, blood pressure is 120/65, heart rate 65 per minute. She is afebrile. EXAMINATION OF THE HEART: S1, S2. EXAMINATION OF LUNGS: Bilateral breath sounds are heard. Decreased breath sounds at the bases. ABDOMEN: Soft, non-tender. Examination of lower extremities shows no significant edema. GLASS CALIBRATOR exam is grossly intact. Labs reveal sodium 130, potassium 4.2, chloride 107, BUN 23, serum creatinine 2.18, hemoglobin 7.5 g/dL. Lipase is 1504. Amylase is 294. ASSESSMENT: 1. Chronic kidney disease, NKF stage IV, with renal function currently at baseline. Etiology is nephrosclerosis. The patient does have proteinuria; I did not see any workup as outpatient. We will proceed with the workup during her hospitalization. 2. Status post explorative laparotomy, colectomy and colostomy after perforation in the colon. 3. Hypertension, currently much better controlled. 4. Acute pancreatitis. Patient is being followed by GI and General Surgery. No plans for surgical intervention at this time. No obvious obstruction noted on the CT. The patient will be scheduled for MRI down the road. PLAN: Continue IV fluids. Check baseline serologies for workup of proteinuria. MMODL / IJN: [id number] /
--- NOTE | 2017-03-09 18:31 | P.PN ---
Progress Note - Text Progress Note Date: 03/09/17 DATE OF SERVICE: 03/09/2017 PRESENTING COMPLAINT: nausea and abdominal pain HISTORY OF PRESENT ILLNESS: 76-year-old female who presented with nausea abdominal discomfort felt to be an early bowel obstruction, NG tube was placed. Admitted for the same surgical consult placed. INTERVAL HISTORY: 03/09/2017: Lying in bed, appears comfortable. Minimal abdominal complaints today primarily right upper quadrant, liver enzymes have risen further today continues to be nothing by mouth, no nausea or vomiting. Surgery is planning to do a computed tomography scan of the abdomen to assure there is no evidence of any obstructive changes. 03/08/2017: Lying in bed appears comfortable but somewhat anxious. Complains of mild abdominal pain on palpation. Liver enzymes have gone back up, patient made nothing by mouth, no nausea and vomiting. Autoimmune serologic workup in place by GI, MRI ordered by GI as well however had to be canceled due to patient has ken and cannot have an MRI. colostomy working well stool noted in the bag. Up with assistance, GI and surgery continue to follow the patient. 03/07/2017: lying in bed mildly anxious appearing continues to complain of mild abdominal pain on palpation. Otherwise feels good, colostomy working liquid brown stool noted in the bag. Tolerating full liquid diet, up with assistance.GI to see the patient this morning.lipase elevated but improving. REVIEW OF SYSTEMS: Done for constitutional ,cardiovascular, GI, pulmonary with relevant findings as above. CURRENT MEDICATIONS Zyloprim, Xanax, Coreg, Catapres, Pepcid, Apresoline, Keppra, Synthroid,morphine , Narcan, Procardia, Zofran, Zoloft, Ultram. PHYSICAL EXAM VITAL SIGNS: Temperature 99.7, respirations 16, pulse 76, blood pressure 120/65, oxygen saturation 96% on room air. GENERAL APPEARANCE: thin build. Lying in bed, not in distress. HEENT: Normocephalic, Pupils equal. Conjunctiva normal. JVD not raised. Mass not palpable.: RESPIRATORY: Respiratory effort normal. Lungs clear to auscultation. CARDIOVASCULAR: First and second sounds normal. No edema. ABDOMEN: Soft. Liver and spleen not palpable.mild tenderness . No mass palpable , colostomy bag to the left lower quadrant stoma pink and moist, no stool currently in the colostomy bag.. PSYCHIATRY: Alert and oriented x3. Mood and affect normal. INVESTIGATIONS: Hemoglobin 7.5, sodium 1:30, BUN 23, creatinine 2.18, amylase 294, lipase 1504. 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 -Hyponatremia, suspect hypoosmolar. -Acute small bowel obstruction patient who is status post recent sigmoid resection and colostomy for sigmoid perforation, colostomy working -Chronic seizure disorder. -Essential hypertension. 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 -Hypothyroidism. -Primary osteoarthritis of multiple joints. -Chronic urinary stress incontinence. -Bipolar disorder. PLAN: pancreatic enzymes continue to worsen, diet advanced to clear liquid per surgery, computed tomography scan results pending, GI is recommending outpatient MRI as well as considering an endoscopic ultrasound, as an outpatient. Continue IV fluids, nephrology will check baseline serologies for workup of proteinuria area monitor hemoglobin daily. Plan of care discussed with the patient the bedside she is in agreement. We will follow closely. MANAGER RENTAL statement: Patient was seen and examined by nurse practitioner Nichelle Ross and all elements of the case discussed with attending Dr. De Guzman
--- NOTE | 2017-03-09 19:02 | CT ---
EXAMINATION TYPE: CT abdomen pelvis wo con DATE OF EXAM: 03/09/2017 COMPARISON: CT abdomen pelvis 03/06/2017 HISTORY: ABDOMINAL PAIN. CT DLP: 632.9 mGycm Automated exposure control for dose reduction was used. TECHNIQUE: Helical acquisition of images from the lung bases through the pelvis. Patient received or al contrast only FINDINGS: Lack of contrast may compromise sensitivity. LUNG BASES: Bilateral pleural effusions and associated atelectasis are again noted. There is motion p resent. Heart is enlarged. Calcifications present at the root of the aorta. AORTA: No significant abnormality is appreciated. LIVER/GB: Gallbladder is absent. Liver shows a stable appearance. PANCREAS: No significant abnormality is seen. SPLEEN: Stable ADRENALS: Stable KIDNEYS: No significant interval change, there are cortical cyst present, hyperdense cystic focus pre sent posterior left kidney, there are nonobstructive calcifications seen within both kidneys, one at the mid to upper pole on the right and on the left each measuring approximately 2 to 3 mm REPRODUCTIVE ORGANS: No significant double change is seen. URINARY BLADDER: Urinary bladder is catheterized. BOWEL: Pneumatosis changes suspected within the cecum. Oral contrast has reached the cecum. There is retained fecal debris present. Postop changes are noted in the pelvis, there is diverticular changes associated with the sigmoid:, Diverting ostomy is present in the left lower quadrant. Increased atten uation within the subcutaneous fat is again noted adjacent to the ostomy and also in the right lower quadrant. There is been interval ration of anasarca changes. FREE AIR: No Free Air is visible. ASCITES: Free fluid is thought present along the paracolic gutters left greater than right PELVIC ADENOPATHY: None visualized. RETROPERITONEAL ADENOPATHY: No Retroperitoneal Adenopathy visible. OSSEOUS STRUCTURES: No significant double change is seen. IMPRESSION: QUESTION PNEUMATOSIS INTESTINALIS INVOLVING THE CECUM. ANASARCA IS PROGRESSING IN THE INTERVAL. POSTO P CHANGES. DIVERTICULOSIS. BILATERAL PLEURAL EFFUSIONS AND ASSOCIATED ATELECTASIS AGAIN NOTED. NONCON TRAST EXAM . CARDIOMEGALY.
[2017-03-09] MEDS: cefTRIAXone IN SWFI 1,000 MG/10 ML SYRINGE IVP SCH (19:27)
--- NOTE | 2017-03-09 21:36 | P.PN ---
Progress Note - Text Patient CT reviewed. Pneumotosis noted in area of the cecum. Etiology may be ischemic. Have discussed case and prognosis with the family. They do not want surgical intervention at this time. We will treat her conservatively.
[2017-03-09] MEDS: ALPRAZolam 0.25 MG TAB PO PRN (22:18)
--- NOTE | 2017-03-09 22:32 | PN ---
PROGRESS NOTE DATE OF SERVICE: 03/09/2017. ATTENDING NOTE: The patient seen and examined by me. I discussed with my nurse practitioner, Ms. Ross. This is a patient admitted with what appeared to be acute pancreatitis. The patient's pain was much worse yesterday. Pain is a bit better, still having some abdominal pain, though. Today this afternoon I saw the patient. There was no output from the colostomy. EXAMINATION: Temperature 99.7, pulse 76, respirations 16, blood pressure 120/65, pulse ox 96% on room air. ABDOMEN: Tenderness. No guarding or rigidity. No stool in the colostomy bag. PSYCH: AO x3. INVESTIGATIONS: White count 6.6, hemoglobin 7.5. Potassium 4.2, BUN 23, creatinine 2.18. Amylase 294, lipase 1504. Late this afternoon. I spoke to Dr. Crys Cárdenas. I was concerned about the patient. At this point, she decided to order a CT scan of the abdomen. CT scan of the abdomen and pelvis was then done that showed pneumatosis changes suspected within the cecum with the contrast the cecum, some retained fecal debris, also increased attenuation noted in the subcutaneous fat adjacent to the ostomy and interval development of anasarca. I then spoke to Dr. Crys Cárdenas over the phone. Possible early gut ischemia is present, but she had already spoken with the family and they did not want any surgical intervention at this time. Because patient's blood pressure now running a bit on the lower side, I did stop the Catapres and cut back the dose of hydralazine. Some parameters will continue with the Coreg, Coreg. Overall prognosis is guarded. Total time spent today was about 45 minutes with over with over half an hour of discussion. MMODL / IJN: [id number] /
[2017-03-09] MEDS: hydrALAZINE HCL 25 MG TAB PO SCH (23:28)
[2017-03-10 01:22] LABS: DNA Double-Stranded NEGATIVE (NEGATIVE)
[2017-03-10] MEDS: LEVOTHYROXINE 125 MCG TAB PO SCH (06:25)
[2017-03-10] MEDS: levETIRAcetam 500 MG TAB PO SCH (06:25)
[2017-03-10] MEDS: cloNIDine HCL 0.2 MG TAB PO SCH (06:41)
[2017-03-10 07:32] LABS: Basophils % (A) 0 %; Eosinophils # (A) 0.2 k/uL (0-0.7); Eosinophils % (A) 3 %; HCT 26.1 % (34.0-46.0); HGB 8.2 gm/dL (11.4-16.0); Lymphocytes # (A) 0.5 k/uL (1.0-4.8); Lymphocytes % (A) 5 %; MCH 27.9 pg (25.0-35.0); MCHC 31.3 g/dL (31.0-37.0); MCV 89.1 fL (80.0-100.0); Mean Platelet Volume 7.8; Monocytes # (A) 0.5 k/uL (0-1.0); Monocytes % (A) 5 %; Neutrophils # (A) 7.9 k/uL (1.3-7.7); Neutrophils % (A) 86 %; Platelet Count 335 k/uL (150-450); RBC 2.93 m/uL (3.80-5.40); RDW 14.4 % (11.5-15.5); WBC 9.3 k/uL (3.8-10.6)
[2017-03-10 07:44] LABS: ALT 35 U/L (9-52); AST 16 U/L (14-36); Albumin 1.8 g/dL (3.5-5.0); Alkaline Phosphatase 54 U/L (38-126); Anion Gap 6 mmol/L; Blood Urea Nitrogen 23 mg/dL (7-17); Calcium 7.6 mg/dL (8.4-10.2); Carbon Dioxide 17 mmol/L (22-30); Chloride 104 mmol/L (98-107); Glucose 97 mg/dL (74-99); Potassium 4.4 mmol/L (3.5-5.1); Sodium 127 mmol/L (137-145); Total Bilirubin <0.1 mg/dL (0.2-1.3); Total Protein 4.2 g/dL (6.3-8.2)
[2017-03-10] MEDS: DEXTROSE 5%-0.45% NACL 1,000 ML IV SCH (07:44)
[2017-03-10] MEDS: traMADol 50 MG TAB PO PRN (07:44)
[2017-03-10] MEDS: ALLOPURINOL 300 MG TAB PO SCH (07:45)
[2017-03-10] MEDS: FAMOTIDINE 20 MG/2 ML VIAL IV SCH (07:46)
[2017-03-10] MEDS: hydrALAZINE HCL 25 MG TAB PO SCH (07:47)
[2017-03-10] MEDS: CARVEDILOL 6.25 MG TAB PO SCH (07:51)
[2017-03-10] MEDS ORDERED: DEXTROSE 5%-0.9% NACL 1,000 ML IV SCH (08:45)
[2017-03-10 08:56] VITALS: RESP 16
--- NOTE | 2017-03-10 10:27 | P.PN ---
Subjective Progress Note Date: 03/10/17 Patient is a 76-year-old white female who is status post exploratory laparotomy Chauhan's procedure for an acute abdomen and free air from a presumed diverticular perforation performed on February 23. The patient did well following surgery and was discharged to an extended care facility on March 02 but returned with abdominal discomfort on March 06. The patient since admission has had some increased right lower quadrant abdominal discomfort. A computed tomography scan performed yesterday revealed pneumatosis intestinalis in the area of the cecum. There is no air noted in the portal vein. The patient this morning is resting in bed and denying pain in her abdomen well lying still. She does have discomfort with palpation. The patient's white blood cell count has increased to 9.3 from 6.6. Her hemoglobin is 8.2. T Objective - Vital Signs Vital signs: Vital Signs Temp 98.4 F 03/10/17 07:00 Pulse 75 03/10/17 07:00 Resp 16 03/10/17 07:00 BP 109/55 03/10/17 07:00 Pulse Ox 92 L 03/10/17 07:00 Intake & Output 03/09/17 03/10/17 03/10/17 18:59 06:59 18:59 Intake Total 1000 375 Output Total 350 150 Balance 1000 25 -150 Weight 78.471 kg 78.471 kg Intake: Intake, IV Titration 1000 375 Amount Dextrose 5%-0.45% NaCl 1, 1000 375 000 ml @ 125 mls/hr IV . Q8H [facility] Rx#:[id number] Output: Urine 350 150 Uretheral (Almendarez) 200 Other: Voiding Method Indwelling Catheter Indwelling Catheter Indwelling Catheter # Voids 1 # Bowel Movements 0 - Constitutional General appearance: Present: average body habitus - Respiratory Details: Decreased breath sounds at the bases - Cardiovascular Rhythm: regular Heart sounds: normal: S1, S2 - Gastrointestinal Gastrointestinal Comment(s): Well-healed scar from prior surgery Abdominal tenderness greatest in the right lower quadrant and right upper quadrant areas she does have some voluntary guarding and rebound Ostomy left lower quadrant. Ostomy pink small amount of flatus in the bag - Psychiatric Psychiatric: Present: A&O x's 3, intact judgment & insight - Labs CBC & Chem 7: 03/10/17 06:45 03/10/17 06:45 Labs: Abnormal Lab Results - Last 24 Hours (Table) 03/09/17 03/10/17 03/10/17 Range/Units 09:44 06:45 06:45 RBC 2.93 L (3.80-5.40) m/uL Hgb 8.2 L (11.4-16.0) gm/dL Hct 26.1 L (34.0-46.0) % Neutrophils # 7.9 H (1.3-7.7) k/uL Lymphocytes # 0.5 L (1.0-4.8) k/uL Sodium 127 L (137-145) mmol/L Carbon Dioxide 17 L (22-30) mmol/L BUN 23 H (7-17) mg/dL Creatinine 2.50 H (0.52-1.04) mg/dL Plasma Lactic Acid Fernando 0.6 L (0.7-2.0) mmol/L Calcium 7.6 L (8.4-10.2) mg/dL Total Bilirubin <0.1 L (0.2-1.3) mg/dL Total Protein 4.2 L (6.3-8.2) g/dL Albumin 1.8 L (3.5-5.0) g/dL - Imaging and Cardiology CT scan - abdomen: report reviewed, image reviewed CT scan - pelvis: report reviewed, image reviewed Assessment and Plan Plan: Impression/plan: 1. 76-year-old white female status post abdominal exploration Chauhan's procedure for acute abdomen and free air February 23 2. Increased abdominal pain. Probable pneumatosis of the cecum. Questionable ischemic in etiology 3. Stage III renal failure 4. Hypertension 5. History of CVAs Plan: 1. At this time the patient and her family do not want surgical intervention. We have discussed in detail that she may have ischemic bowel changes however secondary to her multiple medical comorbidities they have opted for nonsurgical intervention. They understand that if the condition is progressive that she may not survive. The patient herself does not wish surgical intervention at this time. 2. Continued medical management will change antibiotics to Zosyn 3. Will continue to follow
--- NOTE | 2017-03-10 10:40 | P.PN ---
Subjective Progress Note Date: 03/10/17 Principal diagnosis: This is a 76-year-old female followed up because of chronic kidney disease stage IV and acute kidney injury. She had a small bowel obstruction perforation underwent underwent exploratory lap and had partial colectomy on and recent admission in January 2017. She presented again with abdominal discomfort and pain a computed tomography scan shows pneumatosis intestinalis in the area of the cecum.. She continues to have pain in her surgical site. She also had pancreatitis. Denies any nausea vomiting. She says her bowels are moving. No fever chills no shortness of breath no cough no chest pain. She is known with CVA in September 2016, history of hypertension seizure disorder Objective - Vital Signs Vital signs: Vital Signs Temp 98.4 F 03/10/17 07:00 Pulse 75 03/10/17 07:00 Resp 16 03/10/17 07:00 BP 109/55 03/10/17 07:00 Pulse Ox 92 L 03/10/17 07:00 Intake & Output 03/09/17 03/10/17 03/10/17 18:59 06:59 18:59 Intake Total 1000 375 Output Total 350 150 Balance 1000 25 -150 Weight 78.471 kg 78.471 kg Intake: Intake, IV Titration 1000 375 Amount Dextrose 5%-0.45% NaCl 1, 1000 375 000 ml @ 125 mls/hr IV . Q8H [facility] Rx#:[id number] Output: Urine 350 150 Uretheral (Almendarez) 200 Other: Voiding Method Indwelling Catheter Indwelling Catheter Indwelling Catheter # Voids 1 # Bowel Movements 0 Examination awake alert oriented comfortable HEENT exam no JVP. Lungs clear to auscultation percussion good air entry bilaterally Heart sounds are unremarkable no murmur rub gallop Abdomen soft nontender nondistended. Extremity exam reveals no edema Neurologically awake alert oriented. - Labs CBC & Chem 7: 03/10/17 06:45 03/10/17 06:45 Labs: Abnormal Lab Results - Last 24 Hours (Table) 03/09/17 03/10/17 03/10/17 Range/Units 09:44 06:45 06:45 RBC 2.93 L (3.80-5.40) m/uL Hgb 8.2 L (11.4-16.0) gm/dL Hct 26.1 L (34.0-46.0) % Neutrophils # 7.9 H (1.3-7.7) k/uL Lymphocytes # 0.5 L (1.0-4.8) k/uL Sodium 127 L (137-145) mmol/L Carbon Dioxide 17 L (22-30) mmol/L BUN 23 H (7-17) mg/dL Creatinine 2.50 H (0.52-1.04) mg/dL Plasma Lactic Acid Fernando 0.6 L (0.7-2.0) mmol/L Calcium 7.6 L (8.4-10.2) mg/dL Total Bilirubin <0.1 L (0.2-1.3) mg/dL Total Protein 4.2 L (6.3-8.2) g/dL Albumin 1.8 L (3.5-5.0) g/dL Assessment and Plan Assessment: Impression. 1. Acute kidney injury from pneumatosis intestinalis. Creatinine continues to worsen from 1.95, to 2.18, to 2.5. 2. Hyponatremia secondary to acute kidney injury. Sodium is 127. 3. Mild non-gap acidosis, bicarb 17 gap is 6 secondary acute kidney injury. 4. Pancreatitis with abdominal pain last lipase is 1504 and amylase is 294 as of yesterday 03/09/2016 this is getting worse. 5. Blood pressure low 109/55. Recommendation. 1. Will reduce her hydralazine from 25 3 times a day to 20 twice a day. She is on Coreg was 6.25 twice a day, we'll watch it for right now, but will hold for systolic less than 100. Maintain IV fluids
[2017-03-10] MEDS: SERTRALINE 25 MG TAB PO SCH (11:10)
[2017-03-10 11:37] LABS: Complement C3 44.8 mg/dL (80.0-207.0)
--- NOTE | 2017-03-10 14:00 | PN ---
PROGRESS NOTE DATE OF SERVICE: 03/10/16 The patient is a 76-year-old pleasant female admitted to hospital with abdominal pain. She is status post exploratory laparotomy on February 23 for presumed diverticular perforation the day after colonoscopy and underwent Liliana's procedure and she was discharged home for rehab facility on March 02. She was admitted to the hospital on March 06 with abdominal pain mostly in the right lower quadrant area as well as in the epigastric area. Initially at the time of admission the hospital, she had elevated amylase and lipase consistent with mild acute pancreatitis and she was being treated symptomatically. However, in the meantime, her abdominal pain has been progressively getting worse and yesterday she had another CT scan of the abdomen and pelvis done that showed possible pneumatosis intestinalis in the area of the cecum. She is being treated conservatively. Dr. Cárdenas evaluated the patient yesterday and apparently had a discussion with the family. No plans on any surgical intervention at this time. This morning, the patient states that the pain is progressively getting worse. Describes the pain to be located all over the abdomen. Denies any nausea, vomiting. No fever, chills, or night sweats. The colostomy bag has a small amount of stool output which was liquid. PHYSICAL EXAMINATION: She appears comfortable in no apparent distress. VITAL SIGNS: Stable. Blood pressure is 109/55, pulse is 75, temperature 98.4. HEENT examination unremarkable. Conjunctivae pink. Sclerae anicteric. Oral cavity no lesions. The chest was clear to auscultation. HEART: Regular rate and rhythm. Abdomen was diffusely tender all over the abdomen, more tender in the right lower quadrant as well as in the left lower quadrant area. There was some rebound noted. Extremities: No pedal edema. Skin no rashes. NEUROLOGIC: Alert and oriented x3. No focal deficits. LAB: From today, WBC 9.3, hemoglobin 8.2, platelets are normal. BUN is 23, creatinine 2.5, sodium 127, potassium 4.4, chloride 104, and CO2 17. Lactic acid level from yesterday's was 0.6. Amylase yesterday was 294 and lipase is 1504. IMPRESSION: Progressive worsening abdominal pain in this lady who is status post exploratory laparotomy, Liliana's procedure performed for acute abdomen on February 23 and was subsequently discharged home 5 days later, readmitted to the hospital now with worsening abdominal pain and CT scan showing pneumatosis of the cecum. The possibility of colonic ischemia is being considered. I had a lengthy discussion with Dr. Cárdenas today regarding the patient's worsening condition and need for possible repeat surgery at this time given the abdominal findings and possible acute abdomen. Also discussed the patient's condition with Dr. De Guzman. At this time we will continue with medical management and broad-spectrum antibiotics. Dr. Cárdenas said she would re-evaluate the patient this morning and further recommendations will be made. Thank you for this consultation. MMODL / IJN: [id number] /
[2017-03-10] MEDS: MORPHINE SULFATE 2 MG/ML SYRINGE IVP PRN ×2 (15:33→18:11)
[2017-03-10] MEDS ORDERED: PIPERACILLIN-TAZOBACTAM 3.375 GM in DEXTROSE/WATER 1 50ML.BAG IVPB SCH (16:00)
[2017-03-10 16:36] VITALS: PULSE 83; TEMP 99.6
[2017-03-10 16:37] VITALS: BP 131/65
[2017-03-10 18:15] LABS: Calcium 7.7 mg/dL (8.4-10.2); Potassium 4.6 mmol/L (3.5-5.1)
[2017-03-10] MEDS ORDERED: hydrALAZINE HCL 10 MG TAB PO SCH (21:00)
--- NOTE | 2017-03-10 21:09 | DS ---
DISCHARGE SUMMARY DATE OF ADMISSION: 03/06/2017. DATE OF DISCHARGE: 03/10/17. FINAL DIAGNOSES: 1. Acute small-bowel obstruction in a patient who recently had sigmoid resection and resultant colostomy for sigmoid perforation. 2. Chronic seizure disorder. 3. Essential hypertension. 4. Left-sided weakness from old stroke. 5. Hypothyroidism. 6. Primary osteoarthritis multiple joints. 7. Chronic urinary stress incontinence. 8. Bipolar disorder. 9. Acute renal failure likely prerenal from decreased oral intake. 10.Chronic anemia, cause unknown. 11.Acute probably hospital acquired for blood draws. 12.Acute pancreatitis, idiopathic, present on admission. 13.Acute bowel ischemia. 14.Acute renal failure probably acute tubular necrosis multifactorial. HOSPITAL COURSE: This is a very pleasant, but unfortunate lady who was recently discharged from the hospital following sigmoid resection for perforated sigmoid following colostomy, admitted with abdominal pain and bowel obstruction that actually got better. The patient also had acute pancreatitis. The patient continued to deteriorate. CT scan suggestive of bowel ischemia and overall prognosis was felt to be poor. Dr. Crys Long discussed the same with the family and patient's family decided today to make the patient hospice. [facility] was consulted and patient is going home with family. Questions discussed in detail with the patient's daughter at the bedside. Earlier Dr. Crys Stevenson had spoken to the family and also Dr. Ana Amos had called me. CONSULTATION: Dr. Denice Amos from Gastroenterology. Dr. Crys Cárdenas from General surgery. Dr. Mackey from Nephrology. DISPOSITION: Home with family with Hospice. DISCHARGE MEDICATIONS: 1. Ativan 1 mg p.o. q.8h p.r.n. for anxiety. 2. Roxanol 20 mg/mL 5 mg p.o. q.4 p.r.n. 3. Scopolamine patch q.72 hours for secretions. 4. Tylenol p.r.n. feeding as comfort feeding. Discussion and discharge planning more than [address] Ethan Michelle. MARLENY / ESTELA: [id number] /
[2017-03-12 15:30] LABS: C-ANCA <1:20 Titer (<1:20); P-ANCA <1:20 Titer (<1:20)
--- NOTE | 2017-03-14 08:36 | CDI ---
Last Revision, January 2017 Documentation Clarification Form Date: 03/14/2017 8:23:00 AM From: Sabi Centeno Admit Date: 03/06/2017 7:32:00 AM Patient Name: Jessa Hopson Visit Number: [id number] Discharge Date: 03/10/17 ATTENTION: The Clinical Documentation Specialists (CDI) and [facility] Coding Staff appreciate your assistance in clarifying documentation. Please respond to the clarification below the line at the bottom and electronically sign. The CDI & [facility] Coding staff will review the response and follow-up if needed. Please note: Queries are made part of the Legal Health Record. If you have any questions, please contact the author of this message via ITS. Dr. Alistair De Guzman History/Risk Factors:. HX of CHF, HTN, Chronic kidney disease stage 4 VS/Pulse OX: P-59, R-18, BP-130/61, O2 stat 95-97 BNP: none done Echocardiogram Results: Left ventricular systolic function is normal with, an EF between 55-60%. CXR: none done Home med: Coreg, Lasix 20 mg po daily, In your professional opinion, can you please clarify the acuity and type of CHF if known? Systolic Heart Failure: Acute Chronic Acute on Chronic Diastolic Heart Failure: Acute Chronic Acute on Chronic Systolic & Diastolic Heart Failure: Acute Chronic Acute on Chronic Heart Failure Unable to Determine Other, please specify If you have a question about this query, please contact Jessica Anthony, We[employer] Room Supervisor, Nasir Goyal at [phone] between 8am and 5pm. Please continue to document in your progress notes and discharge summary in order to capture severity of illness and risk of mortality. Include clinical findings that support your diagnosis. MTDD
--- NOTE | 2017-04-16 19:02 | DS ---
DISCHARGE SUMMARY ADDENDUM TO DISCHARGE SUMMARY: EXAMINATION: Vital signs noted. Abdomen tender. No guarding or rigidity. Minimal stool in the colostomy bag. The patient is tired appearing. MMODL / IJN: [id number] /
== END 2017-03-10 18:20 | DRG 388 ==
LOC: EC 02:59 → 5MS5E 07:32
PROVIDERS: ADMIT Hospitalist; ATTEND Hospitalist
PROC: 0D9670Z Drainage of Stomach with Drainage Device, Via Natural or Artificial Opening (ICD-10-PCS; principal; 2017-03-06)
DX: K56.609 Unspecified intestinal obstruction, unspecified as to partial versus complete obstruction (principal); N17.0 Acute kidney failure with tubular necrosis; K55.059 Acute (reversible) ischemia of intestine, part and extent unspecified; E87.2 Acidosis; N18.4 Chronic kidney disease, stage 4 (severe); K85.00 Idiopathic acute pancreatitis without necrosis or infection; I69.354 Hemiplegia and hemiparesis following cerebral infarction affecting left non-dominant side; I13.0 Hypertensive heart and chronic kidney disease with heart failure and stage 1 through stage 4 chronic kidney disease, or unspecified chronic kidney disease; I50.9 Heart failure, unspecified; E87.1 Hypo-osmolality and hyponatremia; D64.9 Anemia, unspecified; I69.311 Memory deficit following cerebral infarction; G40.909 Epilepsy, unspecified, not intractable, without status epilepticus; M19.91 Primary osteoarthritis, unspecified site; N39.3 Stress incontinence (female) (male); K63.89 Other specified diseases of intestine; E78.1 Pure hyperglyceridemia; F41.9 Anxiety disorder, unspecified; F31.9 Bipolar disorder, unspecified; Z93.3 Colostomy status; Z90.49 Acquired absence of other specified parts of digestive tract; Z90.710 Acquired absence of both cervix and uterus; E03.9 Hypothyroidism, unspecified; Z79.899 Other long term (current) drug therapy; M10.9 Gout, unspecified; Z87.891 Personal history of nicotine dependence; Z88.5 Allergy status to narcotic agent; Z88.8 Allergy status to other drugs, medicaments and biological substances; Z91.040 Latex allergy status
CPT/HCPCS: 36415; 74018; 74176; 80048; 80053; 81001; 82150; 82787; 83605; 83690; 84478; 85025; 85027; 86038; 86160; 86225; 86255; 86301; 86335; 93005; 93306; 96374; 96375; 99285